=== PATIENT | female | born 1950 | race Caucasian/White ===

== ENCOUNTER → 2017-06-11 08:13 | Outpatient (CLI) | payer MEDICARE, BC, SELFPAY ==
[2017-06-11 10:10] LABS: AST(SGOT) 43 U/L (15-37); Alanine Aminotransfer ALT/SGPT 53 U/L (13-56); Albumin, Serum 3.8 g/dL (3.2-5.0); Alkaline Phosphatase 60 U/L (45-117); Anion Gap 9 (5-15); BUN 19 mg/dL (7-18); BUN/Creat Ratio 28.3 RATIO (10-20); Calcium,Total 9.3 mg/dL (8.5-10.1); Chloride 104 mmol/L (98-107); Cholesterol 249 mg/dL (200); Creatinine, Serum 0.67 mg/dL (0.55-1.02); EST Glomerular Filtration Rate 93 mL/min (>60); Est Glom Filt Rate - Afr Amer 112 mL/min (>60); Globulin 3.9 g/dL (2.2-4.2); Glucose 113 mg/dL (74-106); High Density Lipoprotein 59 mg/dL; Potassium 3.9 mmol/L (3.5-5.1); Protein, Total 7.7 g/dL (6.4-8.2); Sodium Level 141 mmol/L (136-145); Triglycerides 304 mg/dL; Very Low Density Lipoprotein 61 mg/dL (5-40)
== END ==
PROVIDERS: Family Provider Family Medicine; PCP Family Medicine; Visit Provider Family Medicine
DX: E78.00 Pure hypercholesterolemia, unspecified (principal); I10 Essential (primary) hypertension; R73.02 Impaired glucose tolerance (oral)
CPT/HCPCS: 36415; 80053; 80061; 83036

== ENCOUNTER → 2018-02-05 10:08 | Outpatient (CLI) | payer MEDICARE, BC, SELFPAY ==
[2018-02-05 12:02] LABS: Color, Urine Yellow (Yellow); Glucose, Dipstick Normal (Normal); Ketone-Dipstick Negative (Negative); Leukocyte Esterase-Dipstick 100 /ul (Negative); Nitrite-Dipstick Negative (Negative); Occult Blood-Urine Negative /ul (Negative); Protein-Dipstick Negative (Negative); Urine Bilirubin Dipstick Negative (Negative); Urine Clarity Sl. Cloudy (Clear); Urine Urobilinogen Normal (Normal); Urine pH 6.5 (5.0 - 8.0)
[2018-02-05 12:17] LABS: ALB/GLOB Ratio 0.9 RATIO (0.9-2.4); AST(SGOT) 30 U/L (15-37); Alanine Aminotransfer ALT/SGPT 51 U/L (13-56); Albumin, Serum 3.6 g/dL (3.2-5.0); Alkaline Phosphatase 64 U/L (45-117); Anion Gap 7 (5-15); BUN 15 mg/dL (7-18); BUN/Creat Ratio 26.8 RATIO (10-20); Chloride 106 mmol/L (98-107); Cholesterol 233 mg/dL (200); Creatinine, Serum 0.56 mg/dL (0.55-1.02); EST Glomerular Filtration Rate 114 mL/min (>60); Est Glom Filt Rate - Afr Amer 138 mL/min (>60); Globulin 3.9 g/dL (2.2-4.2); Glucose 128 mg/dL (74-106); High Density Lipoprotein 63 mg/dL; Potassium 3.9 mmol/L (3.5-5.1); Protein, Total 7.5 g/dL (6.4-8.2); Sodium Level 139 mmol/L (136-145); Triglycerides 199 mg/dL; Very Low Density Lipoprotein 40 mg/dL (5-40)
[2018-02-05 12:24] LABS: Hemoglobin A1c 6.4 % (4.2-6.3)
[2018-02-05 12:34] LABS: Absolute Lymphocyte Count 1.12 X10^3/ul (0.83-4.51); Absolute Neutrophil Count 3.7 X10^3/uL (2.0-7.7); Basophil# 0.03 X10^3/uL; Basophil% 0.5 % (0-1); Eosinophil# 0.17 X10^3/uL; Hematocrit 39.9 % (37-47); Hemoglobin 13.2 g/dl (12.0-15.0); Lymphocyte # 1.12 X10^3/ul (4.0); Lymphocyte % 19.9 % (19-41); Mean Corp Hgb Conc 33.1 g/gl (32-36); Mean Corpuscular Hgb 31.8 pg (27.0-32.0); Mean Corpuscular Volume 96.1 fL (81-99); Mean Platelet Vol. 10.4 fl (6.2-12.0); Monocyte# 0.58 X10^3/uL; Monocyte% 10.3 % (0-10); Neutrophil # 3.73 X10^3/uL (2.7-7.7); Neutrophil % 66.1 % (47-70); Platelet Count 222 K/mm3 (150-450); RBC Distribution Width CV 13.9 % (11.6-14.6); RBC Distribution Width SD 47.2 fl (35.1-43.9); Red Blood Count 4.15 M/mm3 (4.2-5.4); White Blood Count 5.6 K/mm3 (4.4-11.0)
[2018-02-05 12:46] LABS: POSITIVE COUNT NO; POSITIVE DIFFERENTIAL NO; POSITIVE MORPHOLOGY NO
--- OUTSIDE RECORDS SUMMARY | 2018-03-24 04:35 | XMS RPT_ITS | Clinical Summary ---
:1950 Author Organization [facility] Address [address] [facility] [place] [address] Phone Care Team Providers Name Role Phone Velma Benoit LPN Unavailable Conditions or Problems Problem Name Problem Onset Status Entry Provider Comment Standard Annotate Code Date Date Description Rib pain, left 880080235 Active Qamar Carey Rib pain sided (SNOMED CT) / Abdulaziz BRYANT Bronchitis, 90869766 Active Williams D Acute acute, w or (SNOMED CT) / Gerson BRYANT bronchitis w/o bronchospasm Bronchitis 41446224 Active Sharmin Haddad Bronchitis (SNOMED CT) / Srinivas EVS TECH Medications Medication Instructions Start Stop Generic Name NDC Provider Date Date MEDROL 4 MG Take as METHYLPREDNISOLONE 24239573384 Williams D TBPK directed 07/21 Gerson DAVIS Take 1 capsule BENZONATATE 56615474554 Williams D 100 MG CAPS every 8 hours 07/26 Gerson BRYANT as needed LOSARTAN as directed LOSARTAN [id number] Sharmin Haddad POTASSIUM-HCTZ POTASSIUM-HCTZ TABS Srinivas TABS EVS TECH TOPROL XL as directed METOPROLOL SUCCINATE [id number] Sharmin N [id number] / [id number] Srinivas EVS TECH LIPITOR TABS as directed ATORVASTATIN CALCIUM 06458420332 Sharmin N / TABS Srinivas EVS TECH CALCIUM + D as directed CALCIUM 98286148528 Sharmin N TABS CITRATE-VITAMIN D Srinivas TABS EVS TECH DAILY as directed MULTIPLE 33047205138 Sharmin N MULTIVITAMIN / VITAMINS-MINERALS Srinivas CAPS EVS TECH [facility] FISH OIL as directed OMEGA-3 FATTY ACIDS 97041205548 Sharmin N CPDR /23 CPDR Srinivas SKELTONN ASPIR-81 TBEC as directed ASPIRIN TBEC 42537988665 Sharmin N / Srinivas DAMIAN Medications Administered No information available. Allergies, Adverse Reactions, Alerts Observed no known allergies at Results Date Name Value Unit Range Flag Description Office Visit: UC: Bronchitis SMOK STATUS Never smoker Tobacco use [facility] Office Visit: UC: L rib pain MEDS REVIEW Done Documentation of current medications (procedure) FALLRSKASSES No Fall risk assessment Plan of Care Type Date Detail Appointment 01:00 PM Qamar BRYANT, [address] [place] [address], [address], [place], [address], Pending order X-Ray, Chest, PA & Lateral Pending order X-Ray, Rib, Unilateral Patient education PANIC%20ATTACK Patient education ACUTE%20BRONCHITIS Procedures No information available. Vital Signs Date Name Value Unit Description BMI (Body Mass Index) 30.64 kg/m2 Body Mass Index [Ratio] Body Temperature 97.9 [degF] temperature E&M BP Diastolic 82 mm[Hg] blood pressure, diastolic - 8462-4 BP Systolic 126 mm[Hg] blood pressure, systolic - 8480-6 Heart Rate 80 /min pulse rate E&M - 8867-4 Height 63 [in_us] height E&M - 8302-2 Respiratory Rate 14 /min respiratory rate E&M - 9279-1 Weight Measured 173 [lb_av] weight E&M - 3141-9
--- OUTSIDE RECORDS SUMMARY | 2018-03-24 04:35 | XMS RPT_ITS | Clinical Summary ---
:1950 Author Organization [facility] Address [address] [facility] [place] [address] Phone Care Team Providers Name Role Phone Srinivas DAMIAN, Sharmin Haddad Unavailable Unavailable Conditions or Problems Problem Name Problem Onset Status Entry Provider Comment Standard Annotate Code Date Date Description Bronchitis, 14836360 Active Williams Ndiaye Acute acute, w or (SN Gerson BRYANT bronchitis w/o CT) bronchospasm Bronchitis 77284394 Active Sharmin Haddad Bronchitis (SN Srinivas CT) DRILL PRESS HAND Medications Medication Instructions Start Stop Generic Name NDC Provider Date Date MEDROL 4 MG Take as METHYLPREDNISOLONE [id number] Williams D TBPK directed /07/21 Gerson CAMARGO PERLES Take 1 capsule BENZONATATE 37496513887 Williams D 100 MG CAPS every 8 hours /07/26 Gerson BRYANT as needed LOSARTAN as directed LOSARTAN 89723569485 Sharmin Haddad POTASSIUM-HCTZ /23 POTASSIUM-HCTZ TABS Srinivas TABS DRILL PRESS HAND TOPROL XL as directed METOPROLOL SUCCINATE 07689502988 Sharmin Haddad [id number]-NQT /23 [id number]-VRQ Srinivas DRILL PRESS HAND LIPITOR TABS as directed ATORVASTATIN CALCIUM 78952920047 Sharmin N /23 TABS Srinivas DRILL PRESS HAND CALCIUM + D as directed CALCIUM 68744073492 Sharmin Haddad TABS /23 CITRATE-VITAMIN D Srinivas TABS DRILL PRESS HAND DAILY as directed MULTIPLE 29774116319 Sharmin Haddad MULTIVITAMIN /23 VITAMINS-MINERALS Srinivas CAPS DRILL PRESS HAND [facility] FISH OIL as directed OMEGA-3 FATTY ACIDS 86489127109 Sharmin Haddad CPDR /23 CPDR Srinivas DRILL PRESS HAND ASPIR-81 TBEC as directed ASPIRIN TBEC 48116155981 Sharmin Srinivas DAMIAN Medications Administered No information available. Allergies, Adverse Reactions, Alerts Observed no known allergies at Results Date Name Value Unit Range Flag Description Office Visit: UC: Bronchitis MEDS REVIEW Done Documentation of current medications (procedure) FALLRSKASSES No Fall risk assessment SMOK STATUS Never smoker Tobacco use [facility] Plan of Care Type Date Detail Patient education ACUTE%20BRONCHITIS Procedures No information available. Vital Signs Date Name Value Unit Description BMI (Body Mass Index) 30.50 kg/m2 Body Mass Index [Ratio] Body Temperature 98.4 [degF] temperature E&M BP Diastolic 82 mm[Hg] blood pressure, diastolic - 8462-4 BP Systolic 130 mm[Hg] blood pressure, systolic - 8480-6 Heart Rate 89 /min pulse rate E&M - 8867-4 Height 63 [in_us] height E&M - 8302-2 O2 % BldC Oximetry 98 % oxygen saturation, oximetry Respiratory Rate 16 /min respiratory rate E&M - 9279-1 Weight Measured 172.2 [lb_av] weight E&M - 3141-9
--- OUTSIDE RECORDS SUMMARY | 2018-03-24 04:35 | XMS RPT_ITS | Clinical Summary ---
:1950 Author Organization [facility] Address [address] [place] [address] Phone Care Team Providers Name Role Phone Srinivas DAMIAN, Sharmin Haddad Unavailable Unavailable Conditions or Problems Problem Name Problem Onset Status Entry Provider Comment Standard Annotate Code Date Date Description Bronchitis, 78682695 Active Williams Ndiaye Acute acute, w or (SN Gerson BRYANT bronchitis w/o CT) bronchospasm Bronchitis 83468214 Active Sharmin Haddad Bronchitis (SN Srinivas CT) BOAT OUTBOARD ENGINE MECHANIC Medications Medication Instructions Start Stop Generic Name NDC Provider Date Date MEDROL 4 MG Take as METHYLPREDNISOLONE [id number] Williams D TBPK directed /07/21 Gerson CAMARGO PERLES Take 1 capsule BENZONATATE 89041373655 Williams D 100 MG CAPS every 8 hours /07/26 Gerson BRYANT as needed LOSARTAN as directed LOSARTAN 66953695323 Sharmin Haddad POTASSIUM-HCTZ /23 POTASSIUM-HCTZ TABS Srinivas TABS BOAT OUTBOARD ENGINE MECHANIC TOPROL XL as directed METOPROLOL SUCCINATE 15401519035 Sharmin Haddad [id number]-EYT /23 [id number]-LRL Srinivas BOAT OUTBOARD ENGINE MECHANIC LIPITOR TABS as directed ATORVASTATIN CALCIUM 44714900162 Sharmin N /23 TABS Srinivas BOAT OUTBOARD ENGINE MECHANIC CALCIUM + D as directed CALCIUM 69526691221 Sharmin Hadadd TABS /23 CITRATE-VITAMIN D Srinivas TABS BOAT OUTBOARD ENGINE MECHANIC DAILY as directed MULTIPLE 11053734851 Sharmin Haddad MULTIVITAMIN /23 VITAMINS-MINERALS Srinivas CAPS BOAT OUTBOARD ENGINE MECHANIC CVS FISH OIL as directed OMEGA-3 FATTY ACIDS 29210471522 Sharmin Haddad CPDR /23 CPDR Srinivas BOAT OUTBOARD ENGINE MECHANIC ASPIR-81 TBEC as directed ASPIRIN TBEC 52949035675 Sharmin Srinivas DAMIAN Medications Administered No information available. Allergies, Adverse Reactions, Alerts Observed no known allergies at Results Date Name Value Unit Range Flag Description Office Visit: UC: Bronchitis MEDS REVIEW Done Documentation of current medications (procedure) FALLRSKASSES No Fall risk assessment SMOK STATUS Never smoker Tobacco use [facility] Plan of Care Type Date Detail Appointment 11:00 AM Williams BRYANT, [address] [place] [address], [address], [place], [address], Patient education ACUTE%20BRONCHITIS Procedures No information available. [...]
--- OUTSIDE RECORDS SUMMARY | 2018-03-24 04:35 | XMS RPT_ITS | Clinical Summary ---
:1950 Author Organization [facility] Address [address] [facility] [place] [address] Phone Care Team Providers Name Role Phone Srinivas CYCLING INSTRUCTOR, Sharmin N Unavailable Unavailable Conditions or Problems Problem Name Problem Onset Status Entry Provider Comment Standard Annotate Code Date Date Description Rib pain, left 472277215 Active Qamar Carey Rib pain sided (SNOMED CT) / Abdulaziz BRYANT Bronchitis, 61906335 Active Williams D Acute acute, w or (SNOMED CT) / Gerson BRYANT bronchitis w/o bronchospasm Bronchitis 55790604 Active Sharmin Haddad Bronchitis (SNOMED CT) / Srinivas CYCLING INSTRUCTOR Medications Medication Instructions Start Stop Generic Name NDC Provider Date Date MEDROL 4 MG Take as METHYLPREDNISOLONE 03932171717 Williams D TBPK directed 07/21 Gerson DAVIS Take 1 capsule BENZONATATE 32549730803 Williams D 100 MG CAPS every 8 hours /07/26 Gerson BRYANT as needed LOSARTAN as directed LOSARTAN 57324167035 Sharmin N POTASSIUM-HCTZ / POTASSIUM-HCTZ TABS Srinivas TABS CYCLING INSTRUCTOR TOPROL XL as directed METOPROLOL SUCCINATE 20022432412 Sharmin N [id number] /23 [id number] Srinivas CYCLING INSTRUCTOR LIPITOR TABS as directed ATORVASTATIN CALCIUM 73458256765 Sharmin N /23 TABS Srinivas CYCLING INSTRUCTOR CALCIUM + D as directed CALCIUM 52269406722 Sharmin N TABS CITRATE-VITAMIN D Srinivas TABS CYCLING INSTRUCTOR DAILY as directed MULTIPLE 17178840258 Sharmin N MULTIVITAMIN / VITAMINS-MINERALS Srinivas CAPS CYCLING INSTRUCTOR CVS FISH OIL as directed OMEGA-3 FATTY ACIDS 12778060178 Sharmin Catie CPDR / CPDR Srinivas DAMIAN ASPIR-81 TBEC as directed ASPIRIN TBEC 42769006513 Sharmin N / Srinivas DAMIAN Medications Administered No information available. Allergies, Adverse Reactions, Alerts Observed no known allergies at Results Date Name Value Unit Range Flag Description Office Visit: UC: Bronchitis SMOK STATUS Never smoker Tobacco use [facility] Office Visit: UC: L rib pain MEDS REVIEW Done Documentation of current medications (procedure) FALLRSKASSES No Fall risk assessment Plan of Care Type Date Detail Pending order X-Ray, Chest, PA & Lateral [...]
--- OUTSIDE RECORDS SUMMARY | 2018-03-24 04:36 | XMS RPT_ITS ---
:1950 Author Organization [facility] Care Team Providers Name Role Phone Ganesh Zurita Attending Unavailable Ganesh Zurita Referring Unavailable Ganesh Zurita Primary Care Unavailable Ganesh Zurita Attending Unavailable Ganesh Zurita Primary Care Unavailable PROBLEMS PROBLEMS DATE TYPE CONDITION / CODE ATTENDING STATUS SOURCE 06/11/2017 Unknown E78.00 - Pure Ganesh Zurita Active Rob hypercholesterolem Community [facility], unspecified / Hospital E78.00(ICD-10) Repository 06/11/2017 Unknown I10 - Essential Ganesh Zurita (primary) [facility] hypertension / Hospital I10(ICD-10) Repository 06/11/2017 Unknown R73.02 - Impaired Ganesh Zurita Active Rob glucose tolerance Community (oral) / Hospital R73.02(ICD-10) Repository PROCEDURES PROCEDURES No Procedure Records FoundRESULTS RESULTS URINALYSIS, ROUTINE Collected: 02/05/2018 Status: F Source: ROB (DIPSTICK) 10:20 AM [facility] REPOSITORY Order Comment: How was Urine Obtained? CLEAN CATCH TYPE CODE TESTS RESULT OUT OF RANGE REFERENCE UNITS LAB L400.3000 Yellow COLOR Normal Yellow LAB L400.3050 Clear Normal CLARITY Sl. Cloudy LAB L400.3200 Normal mg/dl Normal GLUCOSE, UR Normal LAB L400.3300 Negative mg/dL Normal BILIRUBIN URINE Negative LAB L400.3400 Negative mg/dl Normal KETONE UR Negative LAB L400.3465 1.002-1.030 Normal SP.GR. DIPSTX 1.010 LAB L400.3550 5.0 - 8.0 pH UR Normal 6.5 LAB L400.3600 Negative mg/dl PROT Normal DIPSTX Negative LAB L400.3700 Normal mg/dl Normal UROBILI Normal LAB L400.3750 Negative Normal NITRITE UR Negative LAB L400.3780 Negative /ul Normal OCCULT BLOOD-UR Negative LAB L400.3800 Negative /ul High LEUK ESTERASE 100 Performed By: #### L400.2010 #### [facility] [address] [place], [place], [address] COMPREHENSIVE METABOLIC Collected: 02/05/2018 Status: F Source: [facility] 10:20 AM [facility] REPOSITORY TYPE CODE TESTS RESULT OUT OF RANGE REFERENCE UNITS LAB L501.0100 74-106 mg/dL High GLU 128 Result Comment: Fasting Glucose result greater than or equal to 126 mg/dL suggests DIABETES MELLITUS per A.D.A. criteria. Please note revised GLUCOSE reference range effective 2017. LAB L501.1000 7-18 mg/dL Normal BUN 15 LAB L501.1100 0.55-1.02 mg/dL Normal CREAT,SERUM 0.56 Result Comment: The validity of the calculated GFR AND GFRAA in patients over 70 years has not been determined. Clinical correlation is essential. LAB L501.1110 >60 mL/min Normal EST GFR 114 Result Comment: Non- GFR Calc LAB L501.1115 >60 mL/min Normal EST GFR - AA 138 Result Comment: GFR Calc LAB L501.1300 10-20 RATIO High BUN/CRE 26.8 LAB L501.1500 6.4-8.2 g/dL T Normal PROT 7.5 LAB L501.1800 3.2-5.0 g/dL Normal ALB 3.6 LAB L501.1950 2.2-4.2 g/dL Normal GLOB 3.9 LAB L501.2000 0.9-2.4 RATIO Normal A/G 0.9 LAB L501.2200 8.5-10.1 mg/dL CA Normal 9.0 LAB L501.4100 15-37 U/L Normal AST 30 LAB L501.4305 45-117 U/L Normal ALK P 64 LAB L501.4405 13-56 U/L Normal ALT 51 LAB L501.4600 0.20-1.00 mg/dL T Normal BILI 0.50 LAB L501.5300 136-145 mmol/L NA Normal 139 LAB L501.5600 3.5-5.1 mmol/L K Normal 3.9 LAB L501.5900 98-107 mmol/L CL Normal 106 LAB L501.6100 21.0-32.0 mmol/L Normal CO2 26.0 LAB L501.6200 5-15 Normal GAP 7 Performed By: #### L500.4050, L500.4100 #### [facility] [address] [place], [place], [address] LIPID PROFILE Collected: 02/05/2018 Status: F Source: [place] 10:20 AM [facility] REPOSITORY TYPE CODE TESTS RESULT OUT OF RANGE REFERENCE UNITS LAB L501.4900 200 mg/dL High CHOL 233 Result Comment: <200 mg/dL Desirable 200-240 mg/dL Borderline >240 mg/dL High Risk LAB L501.5000 mg/dL Normal TRIG 199 Result Comment: The drugs N-Acetylcysteine and Metamizole may falsely depress this assay. Serum Triglycerides Reference Interval Normal <150 mg/dL Borderline high 150 - 199 mg/dL High 200 - 499 mg/dL Very High > or = 500 mg/dL LAB L501.6400 mg/dL Normal HDL 63 Result Comment: The drugs N-Acetylcysteine and Metamizole may falsely depress this assay. Reference Range HDL <40 mg/dL Low HDL Cholesterol HDL >or= 60 mg/dL High HDL Cholesterol LAB L501.6500 0-130 mg/dL Normal LDL 130 LAB L501.6600 5-40 mg/dL Normal VLDL 40 Performed By: #### L500.4050, L500.4100 #### [facility] [address] [place], [place], [address] HEMOGLOBIN A1C Collected: 02/05/2018 Status: F Source: [place] 10:20 AM [facility] REPOSITORY TYPE CODE TESTS RESULT OUT OF RANGE REFERENCE UNITS LAB L501.9985 4.2-6.3 % High HGB A1C 6.4 Performed By: #### L501.9985 #### [facility] [address] [place], [place], [address] CBC W/DIFF, AUTOMATED Collected: 02/05/2018 Status: F Source: [place] 10:20 AM [facility] REPOSITORY TYPE CODE TESTS RESULT OUT OF RANGE REFERENCE UNITS LAB L100.1000 4.4-11.0 K/mm3 Normal WBC 5.6 LAB L100.1200 4.2-5.4 M/mm3 Low RBC 4.15 LAB L100.1300 12.0-15.0 g/dl Normal HGB 13.2 LAB L100.1400 37-47 % Normal HCT 39.9 LAB L100.1500 81-99 fL Normal MCV 96.1 LAB L100.1600 27.0-32.0 pg Normal MCH 31.8 LAB L100.1700 32-36 g/gl Normal MCHC 33.1 LAB L100.1810 11.6-14.6 % Normal RDW CV 13.9 LAB L100.1820 35.1-43.9 fl High RDW SD 47.2 LAB L100.1900 150-450 K/mm3 Normal PLT 222 LAB L100.2000 6.2-12.0 fl Normal MPV 10.4 LAB L100.2100 47-70 % Normal NEUT% 66.1 LAB L100.2200 19-41 % Normal LY% 19.9 LAB L100.2300 0-10 % High MONO% 10.3 LAB L100.2400 0-5 % Normal EO% 3.0 LAB L100.2500 0-1 % Normal BASO% 0.5 LAB L100.2550 0.0-0.9 % Normal IM GRAN % 0.200 Result Comment: IG% - Immature Granulocytes (promyelocytes, myelocytes and metamyelocytes) > 1% indicates that a LEFT SHIFT is Present. LAB L100.2620 2.0-7.7 X10 3/uL Normal Absolute Neut 3.7 LAB L100.2720 0.83-4.51 X10 3/ul Normal Absolute Lymph 1.12 Performed By: #### L100.0100 #### [facility] [address] [place], [address] COMPREHENSIVE METABOLIC Collected: 06/11/2017 Status: F Source: ROB [place]AMAN 8:22 AM [facility] REPOSITORY TYPE CODE TESTS RESULT OUT OF RANGE REFERENCE UNITS LAB L501.0100 74-106 mg/dL High GLU 113 Result Comment: Fasting Glucose result from 100 to 125 mg/dL suggests IMPAIRED HOMEOSTASIS per A.D.A. criteria. Please note revised GLUCOSE reference range effective 2017. LAB L501.1000 7-18 mg/dL High BUN 19 LAB L501.1100 0.55-1.02 mg/dL Normal CREAT,SERUM 0.67 Result Comment: The validity of the calculated GFR AND GFRAA in patients over 70 years has not been determined. Clinical correlation is essential. LAB L501.1110 >60 mL/min Normal EST GFR 93 Result Comment: Non- GFR Calc LAB L501.1115 >60 mL/min Normal EST GFR - AA 112 Result Comment: GFR Calc LAB L501.1300 10-20 RATIO High BUN/CRE 28.3 LAB L501.1500 6.4-8.2 g/dL T Normal PROT 7.7 LAB L501.1800 3.2-5.0 g/dL Normal ALB 3.8 LAB L501.1950 2.2-4.2 g/dL Normal GLOB 3.9 LAB L501.2000 0.9-2.4 RATIO Normal A/G 1.0 LAB L501.2200 8.5-10.1 mg/dL CA Normal 9.3 LAB L501.4100 15-37 U/L High AST 43 LAB L501.4305 45-117 U/L Normal ALK P 60 LAB L501.4405 13-56 U/L Normal ALT 53 LAB L501.4600 0.20-1.00 mg/dL T Normal BILI 0.60 LAB L501.5300 136-145 mmol/L NA Normal 141 LAB L501.5600 3.5-5.1 mmol/L K Normal 3.9 LAB L501.5900 98-107 mmol/L CL Normal 104 LAB L501.6100 21.0-32.0 mmol/L Normal CO2 28.0 LAB L501.6200 5-15 Normal GAP 9 Performed By: #### L500.4050, L500.4100 #### [facility] [address] [place], [address] LIPID PROFILE Collected: 06/11/2017 Status: F Source: [place] 8:22 AM [facility] REPOSITORY TYPE CODE TESTS RESULT OUT OF RANGE REFERENCE UNITS LAB L501.4900 200 mg/dL High CHOL 249 Result Comment: <200 mg/dL Desirable 200-240 mg/dL Borderline >240 mg/dL High Risk LAB L501.5000 mg/dL High TRIG 304 Result Comment: The drugs N-Acetylcysteine and Metamizole may falsely depress this assay. Serum Triglycerides Reference Interval Normal <150 mg/dL Borderline high 150 - 199 mg/dL High 200 - 499 mg/dL Very High > or = 500 mg/dL LAB L501.6400 mg/dL Normal HDL 59 Result Comment: The drugs N-Acetylcysteine and Metamizole may falsely depress this assay. Reference Range HDL <40 mg/dL Low HDL Cholesterol HDL >or= 60 mg/dL High HDL Cholesterol LAB L501.6500 0-130 mg/dL Normal LDL 129 LAB L501.6600 5-40 mg/dL High VLDL 61 Performed By: #### L500.4050, L500.4100 #### [facility] [address] [place], [address] HEMOGLOBIN A1C Collected: 06/11/2017 Status: F Source: [place] 8:22 AM [facility] REPOSITORY TYPE CODE TESTS RESULT OUT OF RANGE REFERENCE UNITS LAB L501.9985 4.2-6.3 % Normal HGB A1C 6.0 Performed By: #### L501.9985 #### [facility] [address] [place], [address] ALLERGIES ALLERGIES No Allergies Records FoundENCOUNTERS ENCOUNTERS ADMIT/DISCHARGE ACCOUNT ADMITTING ENCOUNTER LOCATION SOURCE NUMBER CLASS 02/05/2018 [id number] Ambulatory [facility] 8 [facility] ing:MTLAB Repository 06/11/2017 [id number] Ambulatory [facility] 3 [facility] ing:MTLAB Repository PAYERS PAYERS ENCOUNTER GUARANTOR PAYER SUBSCRIBER SOURCE 02/05/2018 MARGARET BRASWELL Primary MARGARET BRASWELL [place] [id number] Insurance:MEDICARE OLSONDOB: Community [place] PART A [facility] [id number] Number: Repository [id number]: [phone] [id number] [phone] () Date:2018-02-05 02/05/2018 Secondary MARGARET I YOLANDA Rob Insurance:ANTHEMPolic OLSONDOB: Community y Number: [id number] [id number] Repository Date:[id number] [address] [place] [address]VU: 02/05/2018 Tertiary NOT GIVENUNK [place] Insurance:SELF PAY [facility] Number: Effective Repository Date:2018-02-05 06/11/2017 Margaretleonor Braswell Primary Margaret Sonbrock [place] [id number] Insurance:MEDICARE [place] IDOB: Community [place] PART A [facility] [id number] Repository [id number]: [phone] [id number] [phone] () Date:2017-06-11 06/11/2017 Secondary Margaret Braswell [place] Insurance:ANTHEMPolic [place] IDOB: Community y Number: [id number] [id number] Repository Date:[id number] [address] [place] [id number]: 06/11/2017 Tertiary NOT GIVENUNK [place] Insurance:SELF PAY [facility] Number: Effective Repository Date:2017-06-11
== END ==
PROVIDERS: Family Provider Family Medicine; PCP Family Medicine; Referring Provider Family Medicine; Visit Provider Family Medicine
DX: Z00.00 Encounter for general adult medical examination without abnormal findings (principal); R73.02 Impaired glucose tolerance (oral); E78.00 Pure hypercholesterolemia, unspecified; I10 Essential (primary) hypertension
CPT/HCPCS: 36415; 80053; 80061; 81002; 83036; 85025

== ENCOUNTER → 2018-03-30 10:52 | Outpatient (CLI) | payer MEDICARE, BC, SELFPAY ==
--- NOTE | 2018-03-30 10:56 | BI_ITS ---
MAMMOGRAPHY - BILATERAL SCREENING REASON FOR EXAM: Female, 68 years old. Routine annual screening examination. PERTINENT HISTORY: Non-contributory. TECHNIQUE: Digital bilateral breast hari (3D mammographic acquisition) in the CC and MLO projections. 2-D mediolateral oblique (MLO) and craniocaudad (CC) views of both breasts were obtained. CAD: Full Field Digital Mammography with Computer Added Detection was performed. COMPARISON: Comparison is made with prior study dated September 02, 2016 and August 31, 2015. FINDINGS: Breast Composition: There are scattered areas of fibroglandular density. There are no dominant masses or suspicious calcifications. Stable small benign-appearing bilateral axillary lymph nodes. No other significant abnormalities are identified. There has been no significant change since the prior study. BI/SCREENING MAMM (CAD), BILAT IMPRESSION: Stable bilateral screening mammogram. Yearly follow-up mammogram recommended. (A) ASSESSMENT CATEGORY: BIRADS Category 2: Benign. A letter regarding these results will be sent to the patient by the facility within 30 days. Approximately 10% of breast cancers are not detected by mammography. A normal mammogram should not delay biopsy of a clinically suspicious abnormality. [id number] Electronically Signed: Tripp Turpin MD at 12:47 EST , Service support ,
== END ==
PROVIDERS: Family Provider Family Medicine; PCP Family Medicine; Referring Provider Family Medicine; Visit Provider Family Medicine
DX: Z12.31 Encounter for screening mammogram for malignant neoplasm of breast (principal)
CPT/HCPCS: 77063; 77067

== ENCOUNTER → 2018-07-29 | Outpatient (CLI) | payer MEDICARE, BC, SELFPAY ==
[2018-07-29 10:44] LABS: Hemoglobin A1c 5.7 % (4.2-6.3)
[2018-07-29 10:50] LABS: AST(SGOT) 18 U/L (15-37); Alanine Aminotransfer ALT/SGPT 31 U/L (13-56); Albumin, Serum 3.5 g/dL (3.2-5.0); Alkaline Phosphatase 57 U/L (45-117); Cholesterol 325 mg/dL (200); High Density Lipoprotein 51 mg/dL; Protein, Total 7.5 g/dL (6.4-8.2); Triglycerides 210 mg/dL; Very Low Density Lipoprotein 42 mg/dL (5-40)
== END | disposition home or self-care (01) ==
LOC: MTLAB 08:53
PROVIDERS: Family Provider Family Medicine; PCP Family Medicine; Referring Provider Family Medicine; Visit Provider Family Medicine
DX: R73.02 Impaired glucose tolerance (oral) (principal); E78.5 Hyperlipidemia, unspecified
CPT/HCPCS: 36415; 80061; 80076; 83036

== ENCOUNTER → 2018-09-30 | Outpatient (CLI) | payer MEDICARE, BC, SELFPAY ==
[2018-09-30 10:43] LABS: AST(SGOT) 14 U/L (15-37); Alanine Aminotransfer ALT/SGPT 28 U/L (13-56); Albumin, Serum 3.6 g/dL (3.2-5.0); Alkaline Phosphatase 48 U/L (45-117); Cholesterol 230 mg/dL (200); Globulin 3.5 g/dL (2.2-4.2); High Density Lipoprotein 69 mg/dL; Protein, Total 7.1 g/dL (6.4-8.2); Triglycerides 159 mg/dL; Very Low Density Lipoprotein 32 mg/dL (5-40)
== END | disposition home or self-care (01) ==
LOC: MTLAB 07:41
PROVIDERS: Family Provider Family Medicine; PCP Family Medicine; Referring Provider Family Medicine; Visit Provider Family Medicine
DX: E78.5 Hyperlipidemia, unspecified (principal)
CPT/HCPCS: 36415; 80061; 80076

== ENCOUNTER → 2019-01-29 09:25 | Outpatient (CLI) | payer MEDICARE, BC, SELFPAY ==
[2019-01-23 08:44] VITALS: BMI 24.7
[2019-01-29 10:22] LABS: Color, Urine Yellow (Yellow); Glucose, Dipstick Normal (Normal); Ketone-Dipstick Negative (Negative); Leukocyte Esterase-Dipstick 25 /ul (Negative); Nitrite-Dipstick Negative (Negative); Occult Blood-Urine Negative /ul (Negative); Protein-Dipstick Negative (Negative); Specific Gravity, Urine 1.025 (1.002-1.030); Urine Bilirubin Dipstick Negative (Negative); Urine Clarity Clear (Clear); Urine Urobilinogen Normal (Normal)
[2019-01-29 10:23] LABS: Absolute Lymphocyte Count 1.26 X10^3/uL (0.83-4.51); Absolute Neutrophil Count 3.4 X10^3/uL (2.0-7.7); Basophil# 0.04 X10^3/uL; Basophil% 0.7 % (0-1); Eosinophil# 0.16 X10^3/uL; Eosinophils% 2.9 % (0-5); Hematocrit 43.1 % (37-47); Hemoglobin 13.9 g/dL (12.0-15.0); Lymphocyte # 1.26 X10^3/ul (4.0); Lymphocyte % 23.1 % (19-41); Mean Corp Hgb Conc 32.3 g/dL (32-36); Mean Corpuscular Hgb 31.6 pg (27.0-32.0); Mean Platelet Vol. 9.7 fl (6.2-12.0); Monocyte# 0.62 X10^3/uL; Monocyte% 11.4 % (0-10); NRBC Flagged by Analyzer 0 % (0-5); Neutrophil # 3.36 X10^3/uL (2.7-7.7); Neutrophil % 61.7 % (47-70); Platelet Count 200 K/mm3 (150-450); RBC Distribution Width CV 13.2 % (11.6-14.6); RBC Distribution Width SD 47.4 fl (35.1-43.9); White Blood Count 5.5 K/mm3 (4.4-11.0)
[2019-01-29 10:38] LABS: ALB/GLOB Ratio 1.1 RATIO (0.9-2.4); AST(SGOT) 23 U/L (15-37); Alanine Aminotransfer ALT/SGPT 40 U/L (13-56); Albumin, Serum 3.9 g/dL (3.2-5.0); Alkaline Phosphatase 49 U/L (45-117); Anion Gap 8 (5-15); BUN 25 mg/dL (7-18); BUN/Creat Ratio 34.2 RATIO (10-20); Calcium,Total 9.7 mg/dL (8.5-10.1); Chloride 107 mmol/L (98-107); Cholesterol 227 mg/dL (200); Creatinine, Serum 0.73 mg/dL (0.55-1.02); EST Glomerular Filtration Rate 84 mL/min (>60); Est Glom Filt Rate - Afr Amer 101 mL/min (>60); Globulin 3.5 g/dL (2.2-4.2); Glucose 130 mg/dL (74-106); High Density Lipoprotein 78 mg/dL; Potassium 4.3 mmol/L (3.5-5.1); Protein, Total 7.4 g/dL (6.4-8.2); Sodium Level 142 mmol/L (136-145); Triglycerides 123 mg/dL; Very Low Density Lipoprotein 25 mg/dL (5-40)
[2019-01-29 10:40] LABS: Hemoglobin A1c 5.7 % (4.2-6.3)
== END ==
PROVIDERS: Family Provider Family Medicine; PCP Family Medicine; Referring Provider Family Medicine; Visit Provider Family Medicine
DX: Z00.00 Encounter for general adult medical examination without abnormal findings (principal); E78.5 Hyperlipidemia, unspecified; R73.02 Impaired glucose tolerance (oral); I10 Essential (primary) hypertension
CPT/HCPCS: 36415; 80053; 80061; 81002; 83036; 85025

== ENCOUNTER 2019-02-17 15:37 | Emergency (ER) | payer MEDICARE, BC, SELFPAY ==
[2019-01-23 08:44] VITALS: BMI 24.7
[2019-02-17 15:38] VITALS: BP 140/78; PULSE 81; RESP 16; TEMP 36.7; O2SAT 98; BMI 24.0
--- NOTE | 2019-02-17 16:10 | ED.DCSUM_ITS ---
- ER Visit Summary Date of Service: 02/17/19 Chief Complaint: Visual change right eye History of Present Illness: The patient is a 68 F who presents with flashes and floaters in her right eye that began last night. Patient states she started seeing some flashes last night. Patient states today she noticed a black spot in her right vision. Patient states that she has had a similar floater in her left eye in the past. Patient states she called her payroll assistant who referred her to the emergency department. Patient denies any headaches. Patient denies any nausea or vomiting. Patient denies any other visual changes. Patient denies any trauma or injury. Physical Examination: Vital signs are stable. Patient is afebrile. Patient is in no acute distress. Pupils are equal, round, and reactive to light bilaterally. Extraocular muscles are intact. Conjunctiva is clear. There are no foreign bodies noted. There is no lid edema noted. Anterior chamber was clear. There is no hyphema. Funduscopic examination was benign bilaterally. Cranial nerves II through XII are intact. There are no focal motor or sensory deficits noted. Test Results: Wyekd-ia-caxb ultrasound was performed by myself. I did not see any retinal detachments or lens dislocation. Emergency Department Course and Treatment: Case was discussed with Dr. Seamus Franklin, patient's payroll assistant. He will follow-up with the patient tomorrow morning. Patient was instructed to follow-up tomorrow morning. Patient understood and was agreeable with the plan. All questions were answered. Disposition: Discharge home Impression: 1. Floater right eye This note was generated with [employer] dictation software. It may contain incorrect words, spelling, and punctuation that were not noted in review of the chart prior to signing ED Disposition - Plan for ED Patient: Disposition: Home or Assisted Living Diagnosis: Floaters in visual field Instructions: Treating Flashes and Floaters Referrals: Ganesh Zurita MD [Primary Care Provider] - Additional Instructions: Follow-up with your payroll assistant tomorrow. He will see you first thing tomorrow morning.
[2019-02-17 16:48] VITALS: BP 132/70; PULSE 80; RESP 14; O2SAT 98
== END 2019-02-17 16:49 | disposition home or self-care (01) ==
PROVIDERS: Emergency Provider Emergency Medicine; Family Provider Family Medicine; PCP Family Medicine
DX: H43.391 Other vitreous opacities, right eye (principal); I10 Essential (primary) hypertension; E78.00 Pure hypercholesterolemia, unspecified; Z79.899 Other long term (current) drug therapy
CPT/HCPCS: 99283

== ENCOUNTER → 2019-04-05 09:49 | Outpatient (CLI) | payer MEDICARE, BC, SELFPAY ==
--- NOTE | 2019-04-05 09:52 | BI_ITS ---
MAMMOGRAPHY - BILATERAL SCREENING REASON FOR EXAM: Female, 69 years old. Routine annual screening examination. PERTINENT HISTORY: Non-contributory. TECHNIQUE: Digital bilateral breast demario (3D mammographic acquisition) in the CC and MLO projections. 2-D mediolateral oblique (MLO) and craniocaudad (CC) views of both breasts were obtained. CAD: Full Field Digital Mammography with Computer Added Detection was performed. COMPARISON: Comparison is made with prior study dated March 30, 2018 and September 02, 2006. FINDINGS: Breast Composition: There are scattered areas of fibroglandular density. There are no dominant masses or suspicious calcifications. No other significant abnormalities are identified. There has been no significant change since the prior study. BI/SCREEN MAMM (CAD) W/DEMARIO BILAT IMPRESSION: Stable bilateral screening mammogram. Yearly follow-up mammogram recommended. (A) ASSESSMENT CATEGORY: BIRADS Category 1: Negative. A letter regarding these results will be sent to the patient by the facility within 30 days. Approximately 10% of breast cancers are not detected by mammography. A normal mammogram should not delay biopsy of a clinically suspicious abnormality. [id number] Electronically Signed: Tripp Turpin, at 10:49 EST , Service support ,
== END ==
PROVIDERS: Family Provider Family Medicine; PCP Family Medicine; Referring Provider Family Medicine; Visit Provider Family Medicine
DX: Z12.31 Encounter for screening mammogram for malignant neoplasm of breast (principal)
CPT/HCPCS: 77063; 77067

== ENCOUNTER → 2019-08-03 08:14 | Outpatient (CLI) | payer MEDICARE, BC, SELFPAY ==
[2019-08-03 10:31] LABS: Hemoglobin A1c 5.5 % (3.8-5.6)
[2019-08-03 10:41] LABS: AST(SGOT) 15 U/L (15-37); Alanine Aminotransfer ALT/SGPT 31 U/L (13-56); Albumin, Serum 3.7 g/dL (3.2-5.0); Alkaline Phosphatase 47 U/L (45-117); Bilirubin, Direct 0.17 mg/dL (0.00-0.30); Cholesterol 226 mg/dL (200); Globulin 3.6 g/dL (2.2-4.2); High Density Lipoprotein 72 mg/dL; Protein, Total 7.3 g/dL (6.4-8.2); Triglycerides 103 mg/dL; Very Low Density Lipoprotein 21 mg/dL (5-40)
== END ==
PROVIDERS: PCP Family Medicine; Referring Provider Family Medicine; Visit Provider Family Medicine
DX: E78.5 Hyperlipidemia, unspecified (principal); R73.02 Impaired glucose tolerance (oral)
CPT/HCPCS: 36415; 80061; 80076; 83036

== ENCOUNTER → 2019-08-12 10:55 | Outpatient (CLI) | payer MEDICARE, BC, SELFPAY ==
--- NOTE | 2019-08-12 11:00 | CDU_ITS ---
Reason For Study: near syncope Rt. Velocities/BP Lt. Velocities/BP Prox CCA 60.4/18.6 cm/sec. Prox CCA 74.9/16.3 cm/sec. Mid CCA 56.5/18.6 cm/sec. Mid CCA 57.9/14.4 cm/sec. Dist CCA 47.3/14.7 cm/sec. Dist CCA 55.0/10.7 cm/sec. Prox ICA 59.1/17.3 cm/sec. Prox ICA 58.8/14.4 cm/sec. Mid ICA 61.7/20.0 cm/sec. Mid ICA 48.4/18.2 cm/sec. Dist ICA 55.2/14.7 cm/sec. Dist ICA 75.8/30.5 cm/sec. Rt. ICA/CCA = 1.1. Lt. ICA/CCA = 1.3. Prox ECA 81.2/12.1 cm/sec. Prox ECA 56.0/4.1 cm/sec. Rt. Vert. 28.6/7.8 cm/sec. Lt. Vert. 36.2/13.5 cm/sec. Right Extracranial There is intimal thickening but no significant atherosclerotic plaque noted in the right common carotid artery. There is intimal thickening but no significant atherosclerotic plaque noted in the right internal carotid artery. There is intimal thickening but no significant atherosclerotic plaque noted in the right external carotid artery. Antegrade flow is noted in the right vertebral artery. Left Extracranial There is intimal thickening but no significant atherosclerotic plaque noted in the left common carotid artery. There is intimal thickening but no significant atherosclerotic plaque noted in the left internal carotid artery. There is intimal thickening but no significant atherosclerotic plaque noted in the left external carotid artery. Antegrade flow is noted in the left vertebral artery. Procedure Carotid Duplex [id number]. The exam was diagnostic. Exam performed in department. Interpretation Summary No significant atherosclerotic plaque or stenosis noted in the internal carotid arteries bilaterally. Flow within the vertebral arteries is antegrade bilaterally. Ordering Physician: Ganesh Zurita Performed By: Teto Flores RVT
== END ==
PROVIDERS: PCP Family Medicine; Referring Provider Family Medicine; Visit Provider Family Medicine
DX: R55 Syncope and collapse (principal)
CPT/HCPCS: 93880

== ENCOUNTER → 2020-02-23 11:09 | Outpatient (CLI) | payer MEDICARE, BC, SELFPAY ==
[2020-02-23 12:26] LABS: Absolute Neutrophil Count 3.8 X10^3/uL (2.0-7.7); Basophil# 0.03 X10^3/uL; Basophil% 0.5 % (0-1); Eosinophil# 0.13 X10^3/uL; Eosinophils% 2.2 % (0-5); Hematocrit 39.7 % (37-47); Hemoglobin 12.5 g/dL (12.0-15.0); Lymphocyte % 23.3 % (19-41); Mean Corp Hgb Conc 31.5 g/dL (32-36); Mean Corpuscular Volume 101.5 fL (81-99); Mean Platelet Vol. 10.3 fl (6.2-12.0); Monocyte# 0.58 X10^3/uL; Monocyte% 9.7 % (0-10); NRBC Flagged by Analyzer 0 % (0-5); Neutrophil # 3.84 X10^3/uL (2.7-7.7); Neutrophil % 63.8 % (47-70); Platelet Count 227 K/mm3 (150-450); RBC Distribution Width CV 13.2 % (11.6-14.6); RBC Distribution Width SD 49.2 fl (35.1-43.9); Red Blood Count 3.91 M/mm3 (4.2-5.4)
[2020-02-23 12:56] LABS: Hemoglobin A1c 5.6 % (3.8-5.6)
[2020-02-23 13:41] LABS: ALB/GLOB Ratio 1.1 RATIO (0.9-2.4); AST(SGOT) 28 U/L (15-37); Alanine Aminotransfer ALT/SGPT 54 U/L (13-56); Albumin, Serum 3.9 g/dL (3.2-5.0); Alkaline Phosphatase 54 U/L (45-117); Anion Gap 6 (5-15); BUN 17 mg/dL (7-18); BUN/Creat Ratio 25.8 RATIO (10-20); Calcium,Total 9.6 mg/dL (8.5-10.1); Chloride 106 mmol/L (98-107); Cholesterol 212 mg/dL (200); Creatinine, Serum 0.66 mg/dL (0.55-1.02); EST Glomerular Filtration Rate 94 mL/min (>60); Est Glom Filt Rate - Afr Amer 114 mL/min (>60); Globulin 3.5 g/dL (2.2-4.2); Glucose 111 mg/dL (74-106); High Density Lipoprotein 79 mg/dL; Protein, Total 7.4 g/dL (6.4-8.2); Sodium Level 139 mmol/L (136-145); Triglycerides 118 mg/dL; Very Low Density Lipoprotein 24 mg/dL (5-40)
== END ==
PROVIDERS: PCP Family Medicine; Referring Provider Family Medicine; Visit Provider Family Medicine
DX: Z12.31 Encounter for screening mammogram for malignant neoplasm of breast (principal); Z00.00 Encounter for general adult medical examination without abnormal findings; Z13.6 Encounter for screening for cardiovascular disorders; I10 Essential (primary) hypertension; E78.5 Hyperlipidemia, unspecified; R73.02 Impaired glucose tolerance (oral)
CPT/HCPCS: 36415; 80053; 80061; 83036; 85025

== ENCOUNTER → 2020-05-03 10:38 | Outpatient (CLI) | payer MEDICARE, BC, SELFPAY ==
--- NOTE | 2020-05-03 10:41 | BI_ITS ---
MAMMOGRAPHY - BILATERAL SCREENING REASON FOR EXAM: Female, 70 years old. Routine annual screening examination. PERTINENT HISTORY: Non-contributory. TECHNIQUE: Digital bilateral breast demario (3D mammographic acquisition) in the CC and MLO projections. 2-D mediolateral oblique (MLO) and craniocaudad (CC) views of both breasts were obtained. CAD: Full Field Digital Mammography with Computer Added Detection was performed. COMPARISON: 04/05/2019 and 03/30/2018 FINDINGS: Breast Composition: The breasts are almost entirely fatty. There are no dominant masses or suspicious calcifications. No other significant abnormalities are identified. BI/SCRN MAMM (CAD)W/DEMARIO BILAT IMPRESSION: Stable bilateral screening mammogram. Yearly follow-up mammogram recommended. (A) ASSESSMENT CATEGORY: BIRADS Category 2: Benign. A letter regarding these results will be sent to the patient by the facility within 30 days. Approximately 10% of breast cancers are not detected by mammography. A normal mammogram should not delay biopsy of a clinically suspicious abnormality. [id number] Electronically Signed: Moira Beaulieu MD at 16:48 EST Tel , Service support ,
== END ==
PROVIDERS: PCP Family Medicine; Referring Provider Family Medicine; Visit Provider Family Medicine
DX: Z12.31 Encounter for screening mammogram for malignant neoplasm of breast (principal)
CPT/HCPCS: 77063; 77067

== ENCOUNTER → 2020-08-16 11:34 | Outpatient (CLI) | payer MEDICARE, BC, SELFPAY ==
[2020-08-16 15:33] LABS: ALB/GLOB Ratio 1.3 RATIO (0.9-2.4); AST(SGOT) 18 U/L (15-37); Alanine Aminotransfer ALT/SGPT 31 U/L (13-56); Albumin, Serum 4.2 g/dL (3.2-5.0); Alkaline Phosphatase 58 U/L (45-117); Anion Gap 7 (5-15); BUN 13 mg/dL (7-18); BUN/Creat Ratio 17.4 RATIO (10-20); Calcium,Total 9.3 mg/dL (8.5-10.1); Chloride 104 mmol/L (98-107); Cholesterol 193 mg/dL (200); Creatinine, Serum 0.75 mg/dL (0.55-1.02); EST Glomerular Filtration Rate 81 mL/min (>60); Est Glom Filt Rate - Afr Amer 98 mL/min (>60); Globulin 3.2 g/dL (2.2-4.2); Glucose 105 mg/dL (74-106); High Density Lipoprotein 72 mg/dL; Potassium 4.1 mmol/L (3.5-5.1); Protein, Total 7.4 g/dL (6.4-8.2); Sodium Level 139 mmol/L (136-145); Triglycerides 107 mg/dL; Very Low Density Lipoprotein 21 mg/dL (5-40)
[2020-08-16 15:58] LABS: Hemoglobin A1c 5.4 % (3.8-5.6)
== END ==
PROVIDERS: PCP Family Medicine; Referring Provider Family Medicine; Visit Provider Family Medicine
DX: I10 Essential (primary) hypertension (principal); E78.5 Hyperlipidemia, unspecified; R73.02 Impaired glucose tolerance (oral); E55.9 Vitamin D deficiency, unspecified
CPT/HCPCS: 36415; 80053; 80061; 82306; 83036; 86769

== ENCOUNTER 2021-03-09 08:42 | Outpatient (CLI) | payer MEDICARE, BC, SELFPAY ==
[2021-03-09 10:06] LABS: Absolute Lymphocyte Count 1.03 X10^3/uL (0.83-4.51); Absolute Neutrophil Count 3.4 X10^3/uL (2.0-7.7); Basophil# 0.04 X10^3/uL; Basophil% 0.8 % (0-1); Eosinophil# 0.16 X10^3/uL; Eosinophils% 3.1 % (0-5); Hemoglobin 12.7 g/dL (12.0-15.0); Lymphocyte # 1.03 X10^3/ul (0.83-4.51); Lymphocyte % 20.1 % (19-41); Mean Corp Hgb Conc 32.6 g/dL (32-36); Mean Corpuscular Hgb 31.8 pg (27.0-32.0); Mean Corpuscular Volume 97.7 fL (81-99); Mean Platelet Vol. 9.8 fl (6.2-12.0); Monocyte# 0.51 X10^3/uL; Monocyte% 9.9 % (0-10); NRBC Flagged by Analyzer 0 % (0-5); Neutrophil # 3.37 X10^3/uL (2.7-7.7); Neutrophil % 65.7 % (47-70); Platelet Count 211 K/mm3 (150-450); RBC Distribution Width CV 12.8 % (11.6-14.6); RBC Distribution Width SD 45.4 fl (35.1-43.9); Red Blood Count 3.99 M/mm3 (4.2-5.4); White Blood Count 5.1 K/mm3 (4.4-11.0)
[2021-03-09 10:26] LABS: AST(SGOT) 20 U/L (15-37); Alanine Aminotransfer ALT/SGPT 38 U/L (13-56); Albumin, Serum 3.7 g/dL (3.2-5.0); Alkaline Phosphatase 56 U/L (45-117); Anion Gap 3 (5-15); BUN 15 mg/dL (7-18); BUN/Creat Ratio 19.6 RATIO (10-20); Calcium,Total 9.2 mg/dL (8.5-10.1); Chloride 108 mmol/L (98-107); Cholesterol 228 mg/dL (200); Creatinine, Serum 0.77 mg/dL (0.55-1.02); EST Glomerular Filtration Rate 79 mL/min (>60); Est Glom Filt Rate - Afr Amer 95 mL/min (>60); Globulin 3.6 g/dL (2.2-4.2); Glucose 119 mg/dL (74-106); Hemoglobin A1c 5.7 % (3.8-5.6); High Density Lipoprotein 74 mg/dL; Potassium 4.3 mmol/L (3.5-5.1); Protein, Total 7.3 g/dL (6.4-8.2); Sodium Level 140 mmol/L (136-145); Triglycerides 145 mg/dL; Very Low Density Lipoprotein 29 mg/dL (5-40)
[2021-03-09 10:30] LABS: Vitamin D,25 Hydroxy 28.8 ng/mL
== END 2021-03-09 23:59 | disposition short-term general hospital (02) ==
LOC: MTLAB 08:44
PROVIDERS: PCP Family Medicine; Referring Provider Family Medicine; Visit Provider Family Medicine
DX: Z00.00 Encounter for general adult medical examination without abnormal findings (principal); R73.9 Hyperglycemia, unspecified; E78.5 Hyperlipidemia, unspecified; I10 Essential (primary) hypertension; E55.9 Vitamin D deficiency, unspecified
CPT/HCPCS: 36415; 80053; 80061; 82306; 83036; 85025

== ENCOUNTER 2021-05-07 12:57 | Outpatient (CLI) | payer MEDICARE, BC, SELFPAY ==
--- NOTE | 2021-05-07 13:01 | BI_ITS ---
MAMMOGRAPHY - BILATERAL SCREENING 3-D TOMOSYNTHESIS REASON FOR EXAM: Female, 71 years old. SCREENING PERTINENT HISTORY: No significant family history. TECHNIQUE: 2-D mammograms and 3-D Tomosynthesis of the breast (s) were performed. CAD was performed. COMPARISON: 05/03/2020 FINDINGS: The breast composition is composed of scattered fibroglandular density. Scattered benign calcifications are seen. No dense spiculated masses or suspicious microcalcifications are identified. No architectural distortion is identified. There is no skin thickening or retraction. There has been no significant change since the prior study. BI/SCRN MAMM (CAD)W/DEMARIO BILAT IMPRESSION: No mammographic signs of malignancy. Routine yearly mammograms recommended. ASSESSMENT CATEGORY: BIRADS Category 1: Negative. A letter regarding these results will be sent to the patient by the facility within 30 days. FOLLOW UP RECOMMENDATION: Yearly follow up mammogram recommended. (A) Approximately 10% of breast cancers are not detected by mammography. A normal mammogram should not delay biopsy of a clinically suspicious abnormality. Electronically Signed: Cuba Malone MD at 14:49 EDT ,
== END 2021-05-07 23:59 | disposition home or self-care (01) ==
LOC: OPBI 12:58
PROVIDERS: PCP Family Medicine; Visit Provider Family Medicine
DX: Z12.31 Encounter for screening mammogram for malignant neoplasm of breast (principal)
CPT/HCPCS: 77063; 77067

== ENCOUNTER → 2022-01-04 | Outpatient (CLI) | payer MEDICARE, BC, SELFPAY ==
[2022-01-04 10:52] LABS: Cholesterol 251 mg/dL (200); High Density Lipoprotein 63 mg/dL; Thyroid Stim Hormone (TSH) 1.05 uIU/mL (0.358-3.74); Triglycerides 212 mg/dL; Very Low Density Lipoprotein 42 mg/dL (5-40)
== END | disposition home or self-care (01) ==
LOC: MTLAB 08:07
PROVIDERS: PCP Nurse Practitioner Family; Referring Provider Nurse Practitioner Family; Visit Provider Nurse Practitioner Family
DX: I10 Essential (primary) hypertension (principal); E78.5 Hyperlipidemia, unspecified
CPT/HCPCS: 36415; 80061; 84443

== ENCOUNTER → 2022-06-21 | Outpatient (CLI) | payer MEDICARE, BC, SELFPAY ==
[2022-06-21 09:59] LABS: Absolute Lymphocyte Count 0.96 X10^3/uL (0.83-4.51); Absolute Neutrophil Count 3.9 X10^3/uL (2.0-7.7); Basophil# 0.05 X10^3/uL; Basophil% 0.9 % (0-1); Eosinophil# 0.15 X10^3/uL; Eosinophils% 2.7 % (0-5); Hematocrit 35.8 % (37-47); Hemoglobin 11.2 g/dL (12.0-15.0); Lymphocyte # 0.96 X10^3/ul (0.83-4.51); Lymphocyte % 17.2 % (19-41); Mean Corp Hgb Conc 31.3 g/dL (32-36); Mean Corpuscular Hgb 30.9 pg (27.0-32.0); Mean Corpuscular Volume 98.9 fL (81-99); Mean Platelet Vol. 10.4 fl (6.2-12.0); Monocyte# 0.49 X10^3/uL; Monocyte% 8.8 % (0-10); NRBC Flagged by Analyzer 0 % (0-5); Neutrophil # 3.89 X10^3/uL (2.7-7.7); Neutrophil % 69.9 % (47-70); Platelet Count 206 K/mm3 (150-450); RBC Distribution Width CV 13.3 % (11.6-14.6); RBC Distribution Width SD 47.7 fl (35.1-43.9); Red Blood Count 3.62 M/mm3 (4.2-5.4); White Blood Count 5.6 K/mm3 (4.4-11.0)
[2022-06-21 10:14] LABS: Vitamin D,25 Hydroxy 77.5 ng/mL
[2022-06-21 10:18] LABS: ALB/GLOB Ratio 0.9 RATIO (0.9-2.4); AST(SGOT) 26 U/L (15-37); Alanine Aminotransfer ALT/SGPT 47 U/L (13-56); Albumin, Serum 3.4 g/dL (3.2-5.0); Alkaline Phosphatase 69 U/L (45-117); Anion Gap 3 (5-15); BUN 23 mg/dL (7-18); BUN/Creat Ratio 35.7 RATIO (10-20); Calcium,Total 9.5 mg/dL (8.5-10.1); Chloride 108 mmol/L (98-107); Cholesterol 164 mg/dL (200); Creatinine, Serum 0.64 mg/dL (0.55-1.02); EST Glomerular Filtration Rate 96 mL/min (>60); Est Glom Filt Rate - Afr Amer 116 mL/min (>60); Globulin 3.6 g/dL (2.2-4.2); Glucose 123 mg/dL (74-106); High Density Lipoprotein 61 mg/dL; Potassium 3.7 mmol/L (3.5-5.1); Sodium Level 138 mmol/L (136-145); Triglycerides 149 mg/dL; Very Low Density Lipoprotein 30 mg/dL (5-40)
== END | disposition home or self-care (01) ==
LOC: MTLAB 08:06
PROVIDERS: PCP Nurse Practitioner Family; Referring Provider Nurse Practitioner Family; Visit Provider Nurse Practitioner Family
DX: I10 Essential (primary) hypertension (principal); E78.5 Hyperlipidemia, unspecified; E55.9 Vitamin D deficiency, unspecified
CPT/HCPCS: 36415; 80053; 80061; 82306; 85025

== ENCOUNTER → 2022-07-09 | Outpatient (CLI) | payer MEDICARE, BC, SELFPAY ==
--- NOTE | 2022-07-09 14:57 | BI_ITS ---
MAMMOGRAPHY - BILATERAL SCREENING REASON FOR EXAM: Female, 72 years old. Routine annual screening examination. PERTINENT HISTORY: Non-contributory. Occasional breast tenderness. TECHNIQUE: Digital bilateral breast demario (3D mammographic acquisition) in the CC and MLO projections. 2-D mediolateral oblique (MLO) and craniocaudad (CC) views of both breasts were obtained. CAD: Full Field Digital Mammography with Computer Added Detection was performed. COMPARISON: Comparison is made with prior study May 07, 2021 and May 03, 2020. FINDINGS: Breast Composition: There are scattered areas of fibroglandular density. There are no dominant masses or suspicious calcifications. No other significant abnormalities are identified. There has been no significant change since the prior study. BI/SCRN MAMM (CAD)W/DEMARIO BILAT IMPRESSION: Stable bilateral screening mammogram. Yearly follow-up mammogram recommended. (A) ASSESSMENT CATEGORY: BIRADS Category 1: Negative. A letter regarding these results will be sent to the patient by the facility within 30 days. Approximately 10% of breast cancers are not detected by mammography. A normal mammogram should not delay biopsy of a clinically suspicious abnormality. [id number] Electronically Signed: Tripp Turpin MD at 8:02 EDT ,
--- NOTE | 2022-07-09 15:03 | BD_ITS ---
STUDY: DUAL ENERGY X-RAY ABSORPTIOMETRY / DXA REASON FOR EXAM: Female, 72 years old. [id number] TECHNIQUE: Bone Mineral Density (BMD) measurements of lumbar spine and bilateral hips were obtained. COMPARISON: Comparison is made with prior study dated August 31, 2015. FINDINGS: Lumbar Spine (L1-L4): g/cm2 (0.963) / T-score (-0.5) / Z-score (1.8) Findings are suggestive of normal bone density with a low fracture risk. Left Femur Total: g/cm2 (0.874) / T-score (-0.6) / Z-score (1.1) Left Femoral Neck: g/cm2 (0.579) / T-score (-2.4) / Z-score (-0.4) Right Femur Total: g/cm2 (0.841) / T-score (-0.8) / Z-score (0.9) Right Femoral Neck: g/cm2 (0.600) / T-score (-2.2) / Z-score (-0.3) The T-Scores on the most recent prior examination were: Lumbar Spine (L1-L4): There has been worsening of bone density since the previous examination. Left Femur Total: which represents an improvement of 1.8%. Right Femur Total: which represents an improvement of 1.3%. BD/Dexa Bone Density Study IMPRESSION: The patient is considered osteopenic as outlined below according to World Chris Organization (WHO) criteria with a high fracture risk. There has been improvement of bone density since the previous examination. Reference Information: The T-score is the number of standard deviations above or below the standard which is normal for young adults at their peak bone mineral density. The World Health Organization (WHO) interprets the T-scores as follows: Above -1 Normal bone density Between -1 and -2.5 Osteopenia Equal to / or below -2.5 Osteoporosis As a practical clinical guideline, osteopenia may be graded as follows: Mild -1 through -1.5 Moderate -1.6 through -2.0 Severe -2.1 through -2.4 The Z-score is the number of standard deviations above or below age-matched controls. A Z-score of less than -1.5 would be considered abnormal. References: 1. NIH Osteoporosis and Related Bone Diseases www osteo.org 2. International Society for Clinical Densitometry www iscd.org 3. National Osteoporosis Foundation www nof.org Electronically Signed: Tripp Turpin MD at 14:44 EDT ,
== END | disposition home or self-care (01) ==
LOC: OPBD 14:55
PROVIDERS: PCP Nurse Practitioner Family; Referring Provider Nurse Practitioner Family; Visit Provider Nurse Practitioner Family
DX: Z12.31 Encounter for screening mammogram for malignant neoplasm of breast (principal); Z78.0 Asymptomatic menopausal state; M85.80 Other specified disorders of bone density and structure, unspecified site
CPT/HCPCS: 77063; 77067; 77080

== ENCOUNTER → 2022-07-31 | Outpatient (CLI) | payer MEDICARE, BC, SELFPAY ==
[2022-07-31 10:13] LABS: Absolute Lymphocyte Count 1.47 X10^3/uL (0.83-4.51); Absolute Neutrophil Count 3.6 X10^3/uL (2.0-7.7); Basophil# 0.05 X10^3/uL; Basophil% 0.8 % (0-1); Eosinophil# 0.36 X10^3/uL; Eosinophils% 5.9 % (0-5); Hematocrit 37.9 % (37-47); Hemoglobin 11.6 g/dL (12.0-15.0); Lymphocyte # 1.47 X10^3/ul (0.83-4.51); Mean Corp Hgb Conc 30.6 g/dL (32-36); Mean Corpuscular Hgb 30.4 pg (27.0-32.0); Mean Corpuscular Volume 99.2 fL (81-99); Mean Platelet Vol. 10.1 fl (6.2-12.0); Monocyte# 0.67 X10^3/uL; Monocyte% 10.9 % (0-10); NRBC Flagged by Analyzer 0 % (0-5); Neutrophil # 3.57 X10^3/uL (2.7-7.7); Neutrophil % 58.2 % (47-70); Platelet Count 223 K/mm3 (150-450); RBC Distribution Width CV 13.6 % (11.6-14.6); RBC Distribution Width SD 49.6 fl (35.1-43.9); RET-HE 33.7 pg (30-35); Red Blood Count 3.82 M/mm3 (4.2-5.4); White Blood Count 6.1 K/mm3 (4.4-11.0)
== END | disposition home or self-care (01) ==
LOC: MTLAB 08:30
PROVIDERS: PCP Nurse Practitioner Family; Referring Provider Nurse Practitioner Family; Visit Provider Nurse Practitioner Family
DX: D64.9 Anemia, unspecified (principal)
CPT/HCPCS: 36415; 85025; 85045

== ENCOUNTER → 2022-12-18 | Outpatient (CLI) | payer MEDICARE, BC, SELFPAY ==
[2022-12-18 10:51] LABS: Cholesterol 211 mg/dL (200); High Density Lipoprotein 88 mg/dL; Triglycerides 108 mg/dL; Very Low Density Lipoprotein 22 mg/dL (5-40)
[2022-12-18 10:52] LABS: Hemoglobin A1c 5.4 % (3.8-5.6)
[2022-12-22 10:07] LABS: Testosterone, % Free 2.56 % (0.50-2.80); Testosterone, Free 0.18 ng/dL (0.10-0.85); Testosterone, Total 7 ng/dL (3-67)
== END | disposition home or self-care (01) ==
PROVIDERS: PCP Nurse Practitioner Family; Referring Provider Nurse Practitioner Family; Visit Provider Nurse Practitioner Family
DX: E78.5 Hyperlipidemia, unspecified (principal); R73.03 Prediabetes
CPT/HCPCS: 36415; 80061; 83036; 84402; 84403

== ENCOUNTER → 2022-12-27 | Outpatient (CLI) | payer MEDICARE, BC, SELFPAY ==
[2022-12-27 17:33] LABS: Absolute Lymphocyte Count 1.32 X10^3/uL (0.83-4.51); Absolute Neutrophil Count 3.4 X10^3/uL (2.0-7.7); Basophil# 0.05 X10^3/uL; Basophil% 0.9 % (0-1); Eosinophil# 0.15 X10^3/uL; Eosinophils% 2.8 % (0-5); Hematocrit 39.6 % (37-47); Hemoglobin 12.8 g/dL (12.0-15.0); Lymphocyte # 1.32 X10^3/ul (0.83-4.51); Lymphocyte % 24.5 % (19-41); Mean Corp Hgb Conc 32.3 g/dL (32-36); Mean Corpuscular Hgb 31.8 pg (27.0-32.0); Mean Corpuscular Volume 98.5 fL (81-99); Mean Platelet Vol. 10.3 fl (6.2-12.0); Monocyte# 0.48 X10^3/uL; Monocyte% 8.9 % (0-10); NRBC Flagged by Analyzer 0 % (0-5); Neutrophil # 3.38 X10^3/uL (2.7-7.7); Neutrophil % 62.7 % (47-70); Platelet Count 227 K/mm3 (150-450); RBC Distribution Width CV 13.9 % (11.6-14.6); RBC Distribution Width SD 51.1 fl (35.1-43.9); Red Blood Count 4.02 M/mm3 (4.2-5.4); White Blood Count 5.4 K/mm3 (4.4-11.0)
[2022-12-27 17:51] LABS: ALB/GLOB Ratio 1.1 RATIO (0.9-2.4); AST(SGOT) 16 U/L (15-37); Alanine Aminotransfer ALT/SGPT 25 U/L (13-56); Albumin, Serum 3.9 g/dL (3.2-5.0); Alkaline Phosphatase 68 U/L (45-117); Anion Gap 6 (5-15); BUN 27 mg/dL (7-18); BUN/Creat Ratio 36.7 RATIO (10-20); Calcium,Total 9.5 mg/dL (8.5-10.1); Chloride 106 mmol/L (98-107); Creatinine, Serum 0.74 mg/dL (0.55-1.02); EST Glomerular Filtration Rate 82 mL/min (>60); Est Glom Filt Rate - Afr Amer 100 mL/min (>60); Globulin 3.5 g/dL (2.2-4.2); Glucose 131 mg/dL (74-106); Potassium 4.1 mmol/L (3.5-5.1); Protein, Total 7.4 g/dL (6.4-8.2); Sodium Level 139 mmol/L (136-145)
== END | disposition home or self-care (01) ==
LOC: MTLAB 14:10
PROVIDERS: PCP Nurse Practitioner Family; Referring Provider Nurse Practitioner Family; Visit Provider Nurse Practitioner Family
DX: D64.9 Anemia, unspecified (principal)
CPT/HCPCS: 36415; 80053; 85025

== ENCOUNTER → 2023-03-24 | Outpatient (CLI) | payer MEDICARE, BC, SELFPAY ==
[2023-03-24 10:32] LABS: Absolute Neutrophil Count 3.2 X10^3/uL (2.0-7.7); Basophil# 0.05 X10^3/uL; Eosinophil# 0.22 X10^3/uL; Eosinophils% 4.3 % (0-5); Hemoglobin 12.8 g/dL (12.0-15.0); Lymphocyte % 21.4 % (19-41); Mean Corp Hgb Conc 32.8 g/dL (32-36); Mean Corpuscular Hgb 32.5 pg (27.0-32.0); Mean Platelet Vol. 10.1 fl (6.2-12.0); Monocyte# 0.57 X10^3/uL; Monocyte% 11.1 % (0-10); NRBC Flagged by Analyzer 0 % (0-5); Neutrophil # 3.19 X10^3/uL (2.7-7.7); Platelet Count 213 K/mm3 (150-450); RBC Distribution Width CV 13.5 % (11.6-14.6); RBC Distribution Width SD 49.5 fl (35.1-43.9); Red Blood Count 3.94 M/mm3 (4.2-5.4); White Blood Count 5.1 K/mm3 (4.4-11.0)
[2023-03-24 10:47] LABS: Vitamin D,25 Hydroxy 31.7 ng/mL
[2023-03-24 11:32] LABS: AST(SGOT) 18 U/L (15-37); Alanine Aminotransfer ALT/SGPT 32 U/L (13-56); Albumin, Serum 3.7 g/dL (3.2-5.0); Alkaline Phosphatase 62 U/L (45-117); Anion Gap 5 (5-15); BUN 24 mg/dL (7-18); BUN/Creat Ratio 30.9 RATIO (10-20); Calcium,Total 9.4 mg/dL (8.5-10.1); Chloride 107 mmol/L (98-107); Cholesterol 317 mg/dL (200); Creatinine, Serum 0.78 mg/dL (0.55-1.02); EST Glomerular Filtration Rate 77 mL/min (>60); Est Glom Filt Rate - Afr Amer 93 mL/min (>60); Globulin 3.7 g/dL (2.2-4.2); Glucose 129 mg/dL (74-106); High Density Lipoprotein 74 mg/dL; Protein, Total 7.4 g/dL (6.4-8.2); Sodium Level 138 mmol/L (136-145); Thyroid Stim Hormone (TSH) 1.36 uIU/mL (0.358-3.74); Triglycerides 215 mg/dL; Very Low Density Lipoprotein 43 mg/dL (5-40)
== END | disposition home or self-care (01) ==
LOC: MTLAB 08:15
PROVIDERS: PCP Nurse Practitioner Family; Referring Provider Nurse Practitioner Family; Visit Provider Nurse Practitioner Family
DX: I10 Essential (primary) hypertension (principal); D64.9 Anemia, unspecified; E78.5 Hyperlipidemia, unspecified; E55.9 Vitamin D deficiency, unspecified
CPT/HCPCS: 36415; 80053; 80061; 82306; 84443; 85025

== ENCOUNTER → 2023-05-07 | Outpatient (CLI) | payer MEDICARE, BC, SELFPAY ==
--- NOTE | 2023-05-07 10:01 | VDLE_ITS ---
Reason For Study: Right leg pain RIGHT LEFT CFV is compressible, spontaneous, phasic, GSV is normal. competent and demonstrates normal CFV is compressible, spontaneous, phasic, augmentation. competent, and demonstrates normal Procedure augmentation. This is a venous duplex using B-mode, color FV is compressible, spontaneous, phasic, flow and spectral Doppler. competent and demonstrates normal Exam performed in department. augmentation. A preliminary report was called and/or faxed POP V is compressible, spontaneous, phasic, to RN voicemail. competent and demonstrates normal augmentation. T/P Trunk is compressible. PTV is compressible. LT PerV is compressible. Varicose vein at distal [place] (area of concern) is partially noncompressible. VL/Venous Duplex US, Unilateral Interpretation Summary Deep veins of the left lower extremity are patent and compressible segmentally. There is no evidence of left lower extremity deep vein thrombosis. The left great saphenous vein gabbi ears patent and compressible segmentally. Superficial thrombus noted in distal calf varicosities Ordering Physician: Francheska Mcdowell Referring Physician: Francheska Mcdowell Performed By: Jennie Snow RVDoris
--- OUTSIDE RECORDS SUMMARY | 2023-05-07 11:48 | XMS RPT_ITS | CCD ---
Author Name Unknown Address [id number] [place] [address] Organization [facility] Care Team Providers Care Insole Coverer Name Role Phone Sharmin Espino LPN N Unavailable Unavailab Velma Phelps LPN N Unavailable [phone] Sharmin Espino LPN Unavailable Unavailab le Sharmin Espino LPN Unavailable Unavailab Ganesh White MD Primary Care Provider Francheska Mcdowell CNP Unavailable Francheska Mcdowell CNP Unavailable SlaCha keller LPN Unavailable Unavailable Unavailable Unavailable Unavailable Unavailable Isabelle Martin MA Unavailable Unavailable Darvin Frazier MD Unavailable [phone] Francheska Mcdowell CNP Attending Unavailable Francheska Mcdowell CNP Consulting Unavailable Medications Completed/Discontinued Medications Medication Drug Class(es) Dates Sig (Normalized) Sig (Original) ascorbic acid 500 mg extended release oral tablet (20 sources) Vitamin C Start: 08-16-2020 take 1 tablet by mouth once daily ascorbic acid, time released (VITAMIN C) 500 mg TbER Take 1 tablet by mouth once daily. 0 08/16/2020 Active Problems Active Problems Problem Classification Problem Date Documented Da te Episodic/Chronic Deficiency and other anemia (15 sources) Normocytic anemia; Translations: [Normocytic anemia] 07-05-2022 Episodic Past or Other Problems Problem Classification Problem Date Documented Da te Episodic/Chronic Acute bronchitis (4 sources) Acute bronchitis; Translations: [Acute bronchitis, unspecified] Onset: 07-16-2016 07-16-2016 Episodic Chronic obstructive pulmonary disease and bronchiectasis (4 sources) Bronchitis; Translations: [Bronchitis, not specified as acute or chronic] Onset: 07-16-2016 07-16-2016 Episodic Conditions associated with dizziness or vertigo (2 sources) Lightheadedness; Translations: [Dizziness and giddiness] Onset: 08-02-2019 07-13-2021 Episodic Immunizations and screening for infectious disease (2 sources) Exposure to communicable disease; Translations: [Contact with and (suspected) exposure to unspecified communicable disease] Onset: 08-16-2020 07-13-2021 Episodic Nonspecific chest pain (2 sources) Rib pain; Translations: [Pleurodynia] Onset: 10-31-2016 10-31-2016 Episodic Syncope (2 sources) Near syncope; Translations: [Syncope and collapse] Onset: 08-02-2019 07-13-2021 Episodic Unclassified (18 sources) 5 pregnancies 12-31-2021 Results Test Name Value Interpretation Reference Range Facil ity Vital Signs Date Time Vital Sign Value Performing Clinician Facility 12-24-2022 13:40-0400 Body height 160.02 cm Isabelle Martin MA [facility] Work Phone: 12-24-2022 13:40-0400 Body mass index (BMI) [Ratio] 26.75 kg/m2 Isabelle Martin MA [facility] Work Phone: 12-24-2022 13:40-0400 Body surface area Derived from formula 1.72 m2 Isabelle Martin MA [facility] Work Phone: 12-24-2022 13:40-0400 Body temperature 96.3 [degF] Isabelle Martin MA [facility] Work Phone: 12-24-2022 13:40-0400 Body weight 68.49 kg Isabelle Martin MA [facility]; [facility] Work Phone: 12-24-2022 13:40-0400 Diastolic blood pressure 80 mm[Hg] Isabelle Martin MA [facility] Work Phone: Encounters Encounter Date Encounter Type Care Provider Facility Start: 12-24-2022 End: 12-27-2022 Office outpatient visit 25 minutes Francheska Mcdowell CNP Work Phone: [facility] Start: 12-09-2022 End: 12-09-2022 Annotation/Addendum Francheska Mcdowell CNP Work Phone: [facility] Start: 10-16-2022 End: 10-16-2022 Annotation/Addendum Francheska Mcdowell CNP Work Phone: [facility] Start: 08-06-2022 End: 08-06-2022 Annotation/Addendum Francheska Mcdowell CNP Work Phone: [facility] Start: 07-29-2022 End: 07-29-2022 Annotation/Addendum Francheska Mcdowell CNP Work Phone: [facility] Start: 07-05-2022 End: 07-05-2022 Patient encounter procedure Francheska Mcdowell [employer] Work Phone: [facility] Start: 06-19-2022 ambulatory Francheska Mcdowell [employer] [facility] Start: 06-19-2022 End: 07-07-2022 Office outpatient visit 25 minutes Francheska Mcdowell CNP Work Phone: [facility] Start: 06-19-2022 Review Francheska Mcdowell CNP Work Phone: [facility] Start: 04-19-2022 End: 04-19-2022 Annotation/Addendum Francheska Mcdowell [employer] Work Phone: [facility] Start: 12-31-2021 End: 01-06-2022 Office consultation new/estab patient 40 min Francheska Mcdowell [employer] Work Phone: [facility] Start: 09-10-2021 End: 09-10-2021 Office outpatient visit 15 minutes Ganesh Zurita MD Work Phone: [facility] [place] Procedures Date Procedure Procedure Detail Performing Clinician Start: 07-09-2022 End: 07-10-2022 Dexa Bone Density Study Procedure Note: See Note; NOTES: [facility] Imaging Services [address] [place] [address] [place] [address] Dexa Bone Density Study MR#: [id number] Acct: [id number] Name: MARGARET BRASWELL Rep #: [id number] : 1950 F 72 From: Tripp guillen MD PCP: GOYO Cuello Status: REG CLI Study: Dexa Bone Density Study Date of Exam: 07/09/22 Exam# [id number] Ordering Dr: Francheska Mcdowell STUDY: DUAL ENERGY X-RAY ABSORPTIOMETRY / DXA REASON FOR EXAM: Female, 72 years old. [id number] TECHNIQUE: Bone Mineral Density (BMD) measurements of lumbar spine and bilateral hips were obtained. COMPARISON: Comparison is made with prior study dated August 31, 2015. FINDINGS: Lumbar Spine (L1-L4): g/cm2 (0.963) / T-score (-0.5) / Z-score (1.8) Findings are suggestive of normal bone density with a low fracture risk. Left Femur Total: g/cm2 (0.874) / T-score (-0.6) / Z-score (1.1) Left Femoral Neck: g/cm2 (0.579) / T-score (-2.4) / Z-score (-0.4) Right Femur Total: g/cm2 (0.841) / T-score (-0.8) / Z-score (0.9) Right Femoral Neck: g/cm2 (0.600) / T-score (-2.2) / Z-score (-0.3) The T-Scores on the most recent prior examination were: Lumbar Spine (L1-L4): There has been worsening of bone density since the previous examination. Left Femur Total: which represents an improvement of 1.8%. Right Femur Total: which represents an improvement of 1.3%. BD/Dexa Bone Density Study IMPRESSION: The patient is considered osteopenic as outlined below according to World Chris Organization (WHO) criteria with a high fracture risk. There has been improvement of bone density since the previous examination. Reference Information: The T-score is the number of standard deviations above or below the standard which is normal for young adults at their peak bone mineral density. The World Health Organization (WHO) interprets the T-scores as follows: Above -1 Normal bone density Between -1 and -2.5 Osteopenia Equal to / or below -2.5 Osteoporosis As a practical clinical guideline, osteopenia may be graded as follows: Mild -1 through -1.5 Moderate -1.6 through -2.0 Severe -2.1 through -2.4 The Z-score is the number of standard deviations above or below age-matched controls. A Z-score of less than -1.5 would be considered abnormal. References: 1. NIH Osteoporosis and Related Bone Diseases www osteo.org 2. International Society for Clinical Densitometry www iscd.org 3. National Osteoporosis Foundation www nof.org Electronically Signed: Tripp Turpin MD at 14:44 EDT , CC: Francheska Mcdowell NP; MEASUREMENT OPERATOR-C Francheska Mcdowell Acid Patroller: Signed Francheska Mcdowell CNP Work Phone: Start: 07-09-2022 End: 07-10-2022 SCRN MAMM (CAD)W/DEMARIO BILAT Procedure Note: See Note; NOTES: [facility] Imaging Services [address] [place] [address] SCRN MAMM (CAD)W/DEMARIO BILAT MR#: [id number] Acct: [id number] Name: MARGARET BRASWELL Rep #: [id number] : 1950 F 72 From: Tripp guillen MD PCP: Francheska Mcdowell NP-C Status: [facility] Study: SCRN MAMM (CAD)W/DEMARIO BILAT Date of Exam: 06/24 08/16 Exam# [id number] Ordering Dr: Francheska Mcdowell MAMMOGRAPHY - BILATERAL SCREENING REASON FOR EXAM: Female, 72 years old. Routine annual screening examination. PERTINENT HISTORY: Non-contributory. Occasional breast tenderness. TECHNIQUE: Digital bilateral breast demario (3D mammographic acquisition) in the CC and MLO projections. 2-D mediolateral oblique (MLO) and craniocaudad (CC) views of both breasts were obtained. CAD: Full Field Digital Mammography with Computer Added Detection was performed. COMPARISON: Comparison is made with prior study May 07, 2021 and May 03, 2020. FINDINGS: Breast Composition: There are scattered areas of fibroglandular density. There are no dominant masses or suspicious calcifications. No other significant abnormalities are identified. There has been no significant change since the prior study. BI/SCRN MAMM (CAD)W/DEMARIO BILAT IMPRESSION: Stable bilateral screening mammogram. Yearly follow-up mammogram recommended. (A) ASSESSMENT CATEGORY: BIRADS Category 1: Negative. A letter regarding these results will be sent to the patient by the facility within 30 days. Approximately 10% of breast cancers are not detected by mammography. A normal mammogram should not delay biopsy of a clinically suspicious abnormality. [id number] Electronically Signed: Tripp Turpin MD at 8:02 EDT , CC: Francheska Mcdowell MEASUREMENT OPERATOR; GOYO Mcdowell Acid Patroller: Signed Francheska Mcdowell CNP Work Phone: Start: 09-10-2021 Adult depression screening assessment Ganesh Zurita MD Work Phone: Start: 07-16-2016 End: 07-16-2016 Documentation of current medications Sharmin Espino LPN Start: 10-27-2013 Colonoscopy Ganesh Zurita MD Work Phone: Screening colonoscopy [facility] Plan of Treatment Date Care Activity Detail Author Start: 10-28-[address] [facility] Start: 10-28-2023 COLORECTAL CANCER SCREENING COLORECTAL CANCER SCREENING [facility] Start: 12-24-2022 25 hydroxy includes fractions if performed CALCIFEDIOL (38888) [facility] Work Phone: Start: 12-24-2022 Assay of thyroid stimulating hormone tsh TSH (THYROID STIMULATING HORMONE) (73463) : in 3 mo [facility]; [facility] Work Phone: Start: 12-24-2022 Blood count complete auto&auto difrntl wbc CBC, PLATELETS & AUT DIFF (90436) : in 3 mo [facility]; [facility] Work Phone: Start: 12-24-2022 Comprehensive metabolic panel METABOLIC PANEL, COMPREHENSIVE (02301) : in 3 mo [facility]; [facility] Work Phone: Start: 12-24-2022 Lipid panel LIPID PANEL (81989) : in 3 months [facility]; [facility] Work Phone: Start: 12-24-2022 Procedure Education Eprescribed prescriptions (G8553) [facility]; [facility] Work Phone: Start: 12-24-2022 Provider Instructions for Treatment Follow up in 6 months [facility]; [facility] Work Phone: Start: 12-09-2022 Assay of testosterone free TESTOSTERONE ,TOT/FREE 88548 (46500) [facility]; [facility] Work Phone: Start: 12-09-2022 Hemoglobin glycosylated a1c HGB A1C (34536) [facility]; [facility] Work Phone: Start: 12-09-2022 Lipid panel LIPID PANEL (53979) [facility] Work Phone: Start: 09-10-2022 Adult depression screening assessment DEPRESSION SCREENING [facility] Start: 09-10-2022 ANNUAL PCP TEAM CHRONIC DISEASE VISIT ANNUAL PCP TEAM CHRONIC DISEASE VISIT [facility] Start: 09-10-2022 BP CONTROLLED (<130/80) BP CONTROLLED (<130/80) [facility] in Start: 08-06-2022 Blood count leukocyte wbc automated EOSINOPHIL COUNT 5298 (10861) : Absolute-Do in Oct [facility]; [facility] Work Phone: Start: 08-06-2022 CBC, PLATELETS & MANUAL DIFF (62631) : Oct CBC, PLATELETS & MANUAL DIFF (47617) : Oct [facility]; [facility] Work Phone: Start: 08-06-2022 Comprehensive metabolic panel METABOLIC PANEL, COMPREHENSIVE (03832) : Do in Oct [facility]; [facility] Work Phone: Start: 07-05-2022 Blood count complete auto&auto difrntl wbc CBC, PLATELETS & AUT DIFF (76004) : PLEASE DO PERIPHERAL SMEAR IF INDICATED [facility]; [facility] Work Phone: Start: 07-05-2022 Blood count reticulocyte automated RETICULOCYTE COUNT MANU (41447) : absolute count [facility]; [facility] Work Phone: Start: 07-05-2022 Blood smear peripheral interp phys w/writ report BLOOD SMEAR INTERPRETATION (15081) [facility]; [facility] Work Phone: Start: 06-19-2022 25 hydroxy includes fractions if performed CALCIFEDIOL (29825) [facility]; [facility] Work Phone: Start: 06-19-2022 Blood count complete auto&auto difrntl wbc CBC, PLATELETS & AUT DIFF (06324) [facility]; [facility] Work Phone: Start: 06-19-2022 Comprehensive metabolic panel METABOLIC PANEL, COMPREHENSIVE (03522) [facility]; [facility] Work Phone: Start: 06-19-2022 Lipid panel LIPID PANEL (78411) [facility] Work Phone: Start: 06-19-2022 Procedure Education Eprescribed prescriptions (G8553) [facility]; [facility] Work Phone: Start: 06-19-2022 Provider Instructions for Treatment Follow up in 6 months for A1c, cholesterol [facility]; [facility] Work Phone: Start: 06-19-2022 Hemoglobin glycosylated a1c HgA1C , Office (91583) [facility]; [facility] Work Phone: Start: 12-31-2021 Lipid panel LIPID PANEL (63836) [facility] Work Phone: Start: 12-31-2021 Assay of thyroid stimulating hormone tsh TSH (THYROID STIMULATING HORMONE) (61932) [facility]; [facility] Work Phone: Start: 12-31-2021 Procedure Education Eprescribed prescriptions (G8553) [facility]; [facility] Work Phone: Start: 12-31-2021 Provider Instructions for Treatment Follow up in 6 months [facility]; [facility] Work Phone: Start: 10-25-[address] [facility] Start: 09-10-2021 End: 11-10-2021 CBC W Auto Differential panel - Blood CBC + DIFF Lab Routine Encounter for medication monitoring Expected: 09/10/2021, Expires: 11/10/2021 [facility] Work Phone: Payers Date Payer Category Payer Medicare [id number] 2021 Unknown [id number] 2013 Medicaid [employer] [id number] 2013-Present [phone] [address] [place] [address] Medicaid [id number] 1950 Unknown [id number] Unknown Social History Date Type Detail Facility Start: 10-15-2013 Tobacco smoking status NHIS Never smoked tobacco [facility] Work Phone: Start: 07-13-2021 End: 09-10-2021 Alcohol intake Current drinker of alcohol (finding) [facility] Start: 10-15-2013 History SDOH Alcohol Comment occasional wine- 6-[address] [facility] Start: 1950 Sex Assigned At Not on file [facility] Start: 10-15-2013 Tobacco use and exposure Smokeless tobacco non-user [facility] Work Phone: Start: 08-31-2021 End: 09-10-2021 Exposure to SARS-CoV-2 (event) Not sure [facility] Alcohol Use: Alcohol Use: [facility] Work Phone: Tobacco Use: Tobacco Use: [facility] Work Phone: Clinical Notes 09-10-2021 Ganesh Zurita MD - 09/10/2021 1:33 PM EDTRaymmadison Zurita MD - 09/10/2021 1:20 PM EDT Note Date & Type Note Facility 09-10-2021 Note HNO ID: [id number] Author: Ganesh Zurita MD Service: ? Author Type: Physician Type: Progress Notes Filed: 09/10/2021 1:35 PM Note Text: This note was created using [employer]. Subjective Margaret Braswell is a 71 year old female who presents today for follow-up for multiple medical problems. See list. Her chronic medical problems are stable. Her blood pressure is well controlled on her current regimen. Cholesterol is improved with Zocor. She has no new complaints today. HPI Review of Systems Constitutional: Negative. HENT: Negative. Eyes: Negative. Respiratory: Negative. Cardiovascular: Negative. Gastrointestinal: Negative. Endocrine: Negative. Genitourinary: Negative. Musculoskeletal: Negative. Skin: Negative. Allergic/Immunologic: Negative. Neurological: Negative. Hematological: Negative. Psychiatric/Behavioral: Negative. Objective BP 120/62 Pulse 74 Temp 36.2 ?C (97.1 ?F) (Temporal) Resp 14 Ht 160 cm (5' 3 ) Wt 68.5 kg (151 lb) SpO2 98% BMI 26.75 kg/m? Physical Exam Vitals reviewed. Constitutional: Appearance: Normal appearance. HENT: Head: Normocephalic and atraumatic. Nose: Nose normal. Eyes: Extraocular Movements: Extraocular movements intact. Pupils: Pupils are equal, round, and reactive to light. Cardiovascular: Rate and Rhythm: Normal rate and regular rhythm. Pulmonary: Effort: Pulmonary effort is normal. Breath sounds: Normal breath sounds. Abdominal: General: Bowel sounds are normal. Palpations: Abdomen is soft. Musculoskeletal: General: Normal range of motion. Cervical back: Normal range of motion and neck supple. Skin: General: Skin is warm and dry. Capillary Refill: Capillary refill takes less than 2 seconds. Neurological: General: No focal deficit present. Mental Status: She is alert and oriented to person, place, and time. Mental status is at baseline. Psychiatric: Mood and Affect: Mood normal. Behavior: Behavior normal. Assessment and Plan Margaret was seen today for 6 month exam. Diagnoses and all orders for this visit: Mixed hyperlipidemia - LIPID PANEL BASIC; Future - COMP METABOLIC PANEL; Future Hypertension, benign - COMP METABOLIC PANEL; Future Encounter for medication monitoring - CBC + DIFF; Future - COMP METABOLIC PANEL; Future Prediabetes - HGB A1C; Future [facility] 09-10-2021 Note HNO ID: [id number] Author: Ganesh Zurita MD Service: ? Author Type: Physician Type: Progress Notes Filed: 09/10/2021 1:35 PM Note Text: This note was created using [employer]. Subjective Margaret Braswell is a 71 year old female. HPI Review of Systems Objective BP 120/62 Pulse 74 Temp 36.2 ?C (97.1 ?F) (Temporal) Resp 14 Ht 160 cm (5' 3 ) Wt 68.5 kg (151 lb) SpO2 98% BMI 26.75 kg/m? Physical Exam Assessment and Plan [facility] 09-10-2021 History of Presen t illness Narrative This note was created using [employer]. Gaby Braswell is a 71 year old female who presents today for follow-up for multiple medical problems. See list. Her chronic medical problems are stable. Her blood pressure is well controlled on her current regimen. Cholesterol is improved with Zocor. She has no new complaints today. HPI Review of Systems Constitutional: Negative. HENT: Negative. Eyes: Negative. Respiratory: Negative. Cardiovascular: Negative. Gastrointestinal: Negative. Endocrine: Negative. Genitourinary: Negative. Musculoskeletal: Negative. Skin: Negative. Allergic/Immunologic: Negative. Neurological: Negative. Hematological: Negative. Psychiatric/Behavioral: Negative. Objective BP 120/62 Pulse 74 Temp 36.2 C (97.1 F) (Temporal) Resp 14 Ht 160 cm (5' 3 ) Wt 68.5 kg (151 lb) SpO2 98% BMI 26.75 kg/m Physical Exam Vitals reviewed. Constitutional: Appearance: Normal appearance. HENT: Head: Normocephalic and atraumatic. Nose: Nose normal. Eyes: Extraocular Movements: Extraocular movements intact. Pupils: Pupils are equal, round, and reactive to light. Cardiovascular: Rate and Rhythm: Normal rate and regular rhythm. Pulmonary: Effort: Pulmonary effort is normal. Breath sounds: Normal breath sounds. Abdominal: General: Bowel sounds are normal. Palpations: Abdomen is soft. Musculoskeletal: General: Normal range of motion. Cervical back: Normal range of motion and neck supple. Skin: General: Skin is warm and dry. Capillary Refill: Capillary refill takes less than 2 seconds. Neurological: General: No focal deficit present. Mental Status: She is alert and oriented to person, place, and time. Mental status is at baseline. Psychiatric: Mood and Affect: Mood normal. Behavior: Behavior normal. Assessment and Plan Margaret was seen today for 6 month exam. Diagnoses and all orders for this visit: Mixed hyperlipidemia - LIPID PANEL BASIC; Future - COMP METABOLIC PANEL; Future Hypertension, benign - COMP METABOLIC PANEL; Future Encounter for medication monitoring - CBC + DIFF; Future - COMP METABOLIC PANEL; Future Prediabetes - HGB A1C; Future This note was created using [employer]. Subjective Margaret Braswell is a 71 year old female. HPI Review of Systems Objective BP 120/62 Pulse 74 Temp 36.2 C (97.1 F) (Temporal) Resp 14 Ht 160 cm (5' 3 ) Wt 68.5 kg (151 lb) SpO2 98% BMI 26.75 kg/m Physical Exam Assessment and Plan documented in this encounter [facility] Name Dates Details Patient Instructions Indication:BMI 25.0-25.9,adult Start:31-Dec-2021 Instruction Type:Provider Instructions for Treatment How to Access Health Informa tion Online using Patient Portal and [employer] Apps Indication:BMI 25.0-25.9,adult Start:31-Dec-2021 Instruction Type:Patient Edu cation Patient Instructions Indication:Impaired fasting glucose Start:31-Dec-2021 Instruction Type:Provider Instructions for Treatment How to Access Health Informa tion Online using Patient Portal and [employer] Apps Indication:Impaired fasting glucose Start:31-Dec-2021 Instruction Type:Patient Edu cation [facility] Work Phone: [employer]* Name Dates Details Patient Instructions Indication:BMI 25.0-25.9,adult Start:31-Dec-2021 Instruction Type:Provider Instructions for Treatment How to Access Health Informa tion Online using Patient Portal and [employer] Apps Indication:BMI 25.0-25.9,adult Start:31-Dec-2021 Instruction Type:Patient Edu cation Patient Instructions Indication:Impaired fasting glucose Start:31-Dec-2021 Instruction Type:Provider Instructions for Treatment How to Access Health Informa tion Online using Patient Portal and [employer] Apps Indication:Impaired fasting glucose Start:31-Dec-2021 Instruction Type:Patient Edu cation [facility]; [facility] Work Phone: [employer]* Name Dates Details Patient Instructions Indication:BMI 25.0-25.9,adult Start:31-Dec-2021 Instruction Type:Provider Instructions for Treatment How to Access Health Informa tion Online using Patient Portal and [employer] Apps Indication:BMI 25.0-25.9,adult Start:31-Dec-2021 Instruction Type:Patient Edu cation Patient Instructions Indication:Impaired fasting glucose Start:31-Dec-2021 Instruction Type:Provider Instructions for Treatment How to Access Health Informa tion Online using Patient Portal and [employer] Apps Indication:Impaired fasting glucose Start:31-Dec-2021 Instruction Type:Patient Edu cation [facility]; [facility] Work Phone: instructions* Name Dates Details Patient Instructions Indication:BMI 25.0-25.9,adult Start:31-Dec-2021 Instruction Type:Provider Instructions for Treatment How to Access Health Informa tion Online using Patient Portal and [employer] Indication:BMI 25.0-25.9,adult Start:31-Dec-2021 Instruction Type:Patient Edu cation Patient Instructions Indication:Impaired fasting glucose Start:31-Dec-2021 Instruction Type:Provider Instructions for Treatment How to Access Health Informa tion Online using Patient Portal and [employer] Apps Indication:Impaired fasting glucose Start:31-Dec-2021 Instruction Type:Patient Edu cation [facility] Work Phone: instructions* Name Dates Details Patient Instructions Indication:BMI 25.0-25.9,adult Start:31-Dec-2021 Instruction Type:Provider Instructions for Treatment How to Access Health Informa tion Online using Patient Portal and [employer] Apps Indication:BMI 25.0-25.9,adult Start:31-Dec-2021 Instruction Type:Patient Edu cation Patient Instructions Indication:Impaired fasting glucose Start:31-Dec-2021 Instruction Type:Provider Instructions for Treatment How to Access Health Informa tion Online using Patient Portal and [employer] Apps Indication:Impaired fasting glucose Start:31-Dec-2021 Instruction Type:Patient Edu cation [facility]; [facility] Work Phone: instructions* Name Dates Details Patient Instructions Indication:Nonsmoker Start:19-Jun-2022 Instruction Type:Provider Instructions for Treatment How to Access Health Informa tion Online using Patient Portal and [employer] Apps Indication:Nonsmoker Start:19-Jun-2022 Instruction Type:Patient Education Patient Instructions Indication:BMI 25.0-25.9,adult Start:31-Dec-2021 Instruction Type:Provider Instructions for Treatment How to Access Health Informa tion Online using Patient Portal and [employer] Apps Indication:BMI 25.0-25.9,adult Start:31-Dec-2021 Instruction Type:Patient Education Patient Instructions Indication:Impaired fasting glucose Start:31-Dec-2021 Instruction Type:Provider Instructions for Treatment How to Access Health Informa tion Online using Patient Portal and [employer] Apps Indication:Impaired fasting glucose Start:31-Dec-2021 Instruction Type:Patient Education [facility]; [facility] Work Phone: instructions* Name Dates Details Patient Instructions Indication:Nonsmoker Start:19-Jun-2022 Instruction Type:Provider Instructions for Treatment How to Access Health Informa tion Online using Patient Portal and [employer] Apps Indication:Nonsmoker Start:19-Jun-2022 Instruction Type:Patient Education Patient Instructions Indication:BMI 25.0-25.9,adult Start:31-Dec-2021 Instruction Type:Provider Instructions for Treatment How to Access Health Informa tion Online using Patient Portal and [employer] Apps Indication:BMI 25.0-25.9,adult Start:31-Dec-2021 Instruction Type:Patient Education Patient Instructions Indication:Impaired fasting glucose Start:31-Dec-2021 Instruction Type:Provider Instructions for Treatment How to Access Health Informa tion Online using Patient Portal and [employer] Apps Indication:Impaired fasting glucose Start:31-Dec-2021 Instruction Type:Patient Education [facility]; [facility] Work Phone: instructions* Name Dates Details Patient Instructions Indication:Nonsmoker Start:19-Jun-2022 Instruction Type:Provider Instructions for Treatment How to Access Health Informa tion Online using Patient Portal and [employer] Apps Indication:Nonsmoker Start:19-Jun-2022 Instruction Type:Patient Education Patient Instructions Indication:BMI 25.0-25.9,adult Start:31-Dec-2021 Instruction Type:Provider Instructions for Treatment How to Access Health Informa tion Online using Patient Portal and [employer] Apps Indication:BMI 25.0-25.9,adult Start:31-Dec-2021 Instruction Type:Patient Education Patient Instructions Indication:Impaired fasting glucose Start:31-Dec-2021 Instruction Type:Provider Instructions for Treatment How to Access Health Informa tion Online using Patient Portal and [employer] Apps Indication:Impaired fasting glucose Start:31-Dec-2021 Instruction Type:Patient Education [facility]; [facility] Work Phone: instructions* Name Dates Details Patient Instructions Indication:Nonsmoker Start:19-Jun-2022 Instruction Type:Provider Instructions for Treatment How to Access Health Informa tion Online using Patient Portal and [employer] Apps Indication:Nonsmoker Start:19-Jun-2022 Instruction Type:Patient Education Patient Instructions Indication:BMI 25.0-25.9,adult Start:31-Dec-2021 Instruction Type:Provider Instructions for Treatment How to Access Health Informa tion Online using Patient Portal and [employer] Apps Indication:BMI 25.0-25.9,adult Start:31-Dec-2021 Instruction Type:Patient Education Patient Instructions Indication:Impaired fasting glucose Start:31-Dec-2021 Instruction Type:Provider Instructions for Treatment How to Access Health Informa tion Online using Patient Portal and [employer] Apps Indication:Impaired fasting glucose Start:31-Dec-2021 Instruction Type:Patient Education [facility]; [facility] Work Phone: instructions* Name Dates Details Patient Instructions Indication:Nonsmoker Start:19-Jun-2022 Instruction Type:Provider Instructions for Treatment How to Access Health Informa tion Online using Patient Portal and [employer] Apps Indication:Nonsmoker Start:19-Jun-2022 Instruction Type:Patient Education Patient Instructions Indication:BMI 25.0-25.9,adult Start:31-Dec-2021 Instruction Type:Provider Instructions for Treatment How to Access Health Informa tion Online using Patient Portal and [employer] Apps Indication:BMI 25.0-25.9,adult Start:31-Dec-2021 Instruction Type:Patient Education Patient Instructions Indication:Impaired fasting glucose Start:31-Dec-2021 Instruction Type:Provider Instructions for Treatment How to Access Health Informa tion Online using Patient Portal and [employer] Apps Indication:Impaired fasting glucose Start:31-Dec-2021 Instruction Type:Patient Education [facility]; [facility] Work Phone: instructions* Name Dates Details Patient Instructions Indication:Nonsmoker Start:19-Jun-2022 Instruction Type:Provider Instructions for Treatment How to Access Health Informa tion Online using Patient Portal and [employer] Apps Indication:Nonsmoker Start:19-Jun-2022 Instruction Type:Patient Education Patient Instructions Indication:BMI 25.0-25.9,adult Start:31-Dec-2021 Instruction Type:Provider Instructions for Treatment How to Access Health Informa tion Online using Patient Portal and [employer] Apps Indication:BMI 25.0-25.9,adult Start:31-Dec-2021 Instruction Type:Patient Education Patient Instructions Indication:Impaired fasting glucose Start:31-Dec-2021 Instruction Type:Provider Instructions for Treatment How to Access Health Informa tion Online using Patient Portal and [employer] Apps Indication:Impaired fasting glucose Start:31-Dec-2021 Instruction Type:Patient Education [facility]; [facility] Work Phone: Instructions* Name Dates Details How to Access Health Informa tion Online using Patient Portal and [employer] Apps Indication:BMI 25.0-25.9,adult Start:24-Dec-2022 Instruction Type:Patient Education Patient Instructions Indication:BMI 25.0-25.9,adult Start:24-Dec-2022 Instruction Type:Provider Instructions for Treatment Patient Instructions Indication:Nonsmoker Start:19-Jun-2022 Instruction Type:Provider Instructions for Treatment How to Access Health Informa tion Online using Patient Portal and [employer] Apps Indication:Nonsmoker Start:19-Jun-2022 Instruction Type:Patient Education Patient Instructions Indication:BMI 25.0-25.9,adult Start:31-Dec-2021 Instruction Type:Provider Instructions for Treatment How to Access Health Informa tion Online using Patient Portal and [employer] Apps Indication:BMI 25.0-25.9,adult Start:31-Dec-2021 Instruction Type:Patient Education Patient Instructions Indication:Impaired fasting glucose Start:31-Dec-2021 Instruction Type:Provider Instructions for Treatment How to Access Health Informa tion Online using Patient Portal and [employer] Apps Indication:Impaired fasting glucose Start:31-Dec-2021 Instruction Type:Patient Education [facility]; [facility] Work Phone: Summary Purpose Family History Unknown Family Member Name Dates Details Father Comments:Prostate Cancer, Di abetes, Afib Status:Active Mother Comments:Parkinson's, HTN, C holesterol Status:Active Unknown Family Member Name Dates Details Father Comments:Prostate Cancer, Di abetes, Afib Status:Active Mother Comments:Parkinson's, HTN, C holesterol Status:Active Unknown Family Member Name Dates Details Father Comments:Prostate Cancer, Di abetes, Afib Status:Active Mother Comments:Parkinson's, HTN, C holesterol Status:Active Unknown Family Member Name Dates Details Father Comments:Prostate Cancer, Di abetes, Afib Status:Active Mother Comments:Parkinson's, HTN, C holesterol Status:Active Unknown Family Member Name Dates Details Father Comments:Prostate Cancer, Di abetes, Afib Status:Active Mother Comments:Parkinson's, HTN, C holesterol Status:Active Unknown Family Member Name Dates Details Father Comments:Prostate Cancer, Di abetes, Afib Status:Active Mother Comments:Parkinson's, HTN, C holesterol Status:Active Unknown Family Member Name Dates Details Father Comments:Prostate Cancer, Di abetes, Afib Status:Active Mother Comments:Parkinson's, HTN, C holesterol Status:Active Unknown Family Member Name Dates Details Father Comments:Prostate Cancer, Di abetes, Afib Status:Active Mother Comments:Parkinson's, HTN, C holesterol Status:Active Unknown Family Member Name Dates Details Father Comments:Prostate Cancer, Di abetes, Afib Status:Active Mother Comments:Parkinson's, HTN, C holesterol Status:Active Unknown Family Member Name Dates Details Father Comments:Prostate Cancer, Di abetes, Afib Status:Active Mother Comments:Parkinson's, HTN, C holesterol Status:Active Unknown Family Member Name Dates Details Father Comments:Prostate Cancer, Di abetes, Afib Status:Active Mother Comments:Parkinson's, HTN, C holesterol Status:Active Unknown Family Member Name Dates Details Father Comments:Prostate Cancer, Di abetes, Afib Status:Active Mother Comments:Parkinson's, HTN, C holesterol Status:Active Advance Directives No Advanced Directives Records FoundNo Advanced Directives Records Found Additional Source Comments Source Comments (unrecognize d section and content) In the event this informatio n is protected by the Federal Confidentiality of Alcohol and Drug Abuse Patient Records regulations: The Federal rules restrict any use of the information to criminally investigate or prosecute any alcohol or drug abuse patient.[facility] the event this information is protected by the Federal Confidentiality of Alcohol and Drug Abuse Patient Records regulations: The Federal rules restrict any use of the information to criminally investigate or prosecute any alcohol or drug abuse patient.[facility] Care Teams (unrecognized sec tion and content) Insole Coverer Relationship Specialty Start Date End Date Ganesh Zurita MD PCP - General Family Practice 06/23/13 Reason for Visit (unrecogniz ed section and content) INFORMATION SOURCE (unrecogn ized section and content) DATE CREATED AUTHOR AUTHOR'S ORGANIZ ATION 06/21/2022 [facility] [employer] FOR RECORDS PERTAINING TO PATIENTS WHO ARE OR HAVE BEEN ENROLLED IN A CHEMICAL DEPENDENCY/SUBSTANCEABUSE PROGRAM, SOME INFORMATION MAY BE OMITTED. This clinical summary was aggregated from multiple sources. Caution should be exercised in using it in the provision of clinical care. This summary normalizes information from multiple sources, and as a consequence, information in this document may materially change the coding, format and clinical context of patient data. In addition, data may be omitted in some cases. CLINICAL DECISIONS SHOULD BE BASED ON THE PRIMARY CLINICAL RECORDS. [employer] provides no warranty or guarantee of the accuracy or completeness of information in this document.
== END | disposition home or self-care (01) ==
LOC: CVS 10:00
PROVIDERS: PCP Nurse Practitioner Family; Referring Provider Nurse Practitioner Family; Visit Provider Nurse Practitioner Family
DX: M79.605 Pain in left leg (principal)
CPT/HCPCS: 93971

== ENCOUNTER 2023-05-20 15:00 | Outpatient (RCR) | payer MEDICARE, BC, SELFPAY ==
--- NOTE | 2023-05-05 18:01 | HP.PTEVAL ---
Patient's Visit Information Visit Information Visit Information: VIOLETTE GUERRERO is a 73 year old F referred to Physical Therapy by ANNETTE Rodríguez with a diagnosis of TROCHANTERIC BURSITIS OF LEFT HIP. Date of Evaluation: 05/05/23 Physical Therapist: Dennis Carter, PT, Cert MDT, OCS Visit Plan Frequency: 2x /Week Duration: 4 Weeks Plan: PT INTERVENTIONS STRENGTHENING LEFT LEG ( GLUT MEDIUS) ,FUNCTIONAL STRENGTHENING ,CORE STRENGTHENING, STICK ROLL AND MODALITIES NEEDED Subjective Subjective: This 73 female presents to physical therapy with left hip bursitis . This patient has had pain 2 months without etiology reason. [facility] provided medication with bump in lower leg keflex 10 days and recommended PT . No imaging. Patient PA thought buritis . May return to DR for lump in lower leg. Patient lumbar fusion thoracic and lumbar as teenager. Denies paresthesia/tingling. Bowel/bladder-. Patient is sleeping okay. Location pain lateral hip pain described ache. Aggravating factors stairs ,walking ,carrying somethings. Alleviating rest ,sitting. Patient condition QOL and function walking /ADLS SOCIAL: VOCATION: retired Pain Left Hip: Pain Intensity (Out of 10): 5 Pain Intensity Range: 10 Comment: lateral Objective Objective: POSTURE: pelvis asymmetries ,scoliosis PALPATION: mild tender greater trochanteric and I T BAND GAIT: patient ambulates with slight antalgic gait SLS: Left SLS drops unable to stay level PROM: hip WNL no pain MMT: ( peak force ) quads 26.8 ,hamstrings 27.8 ,hip flexion 20.1 , hip abduction 19.1 FLEXABILITY : WNL I TBAND ,hamstring and piriformis Special Tests L/S Slump test left side: Negative L/S Slump test right side: Negative L/S Left Straight Leg Raise: Negative L/S Right Straight Leg Raise: Negative L Hip Scour: Negative L Hip Quadrant - Intraarticular Pathology: Negative L Hip JAYNE - Intraarticular Pathology: Negative L Hip FADDIR - Labrum: Negative L Hip Impingement Provocation - Labrum: Negative L Hip Trendelenberg - Glut Medius: Negative Balance/Special Test Scores Lower Extremity Functional Score: 35 Goals Goal 1:: Patient to be I with HEP Goal Time Frame: 4-6 Weeks Goal 2:: Patient to demonstrate 60% improvement with increase function and less pain. Goal Time Frame: 4-6 Weeks Goal 3:: Patient to normalize gait with less pain Goal Time Frame: 4-6 Weeks Goal 4:: Patient improve peak strength glut medius by 10 # strength to improve gait and function Goal Time Frame: 4-6 Weeks Goal 5:: Patient to improve back oswestry score by 5-10 points to improve QOL and gait Goal Time Frame: 4-6 Weeks Rehabilitation Potential Physical Therapy Diagnosis: This patient has weakness of left hip glut medius affects walking and stairs with h/o scoliosis and back surgery during a teenager thus benefit from skilled PT Rehabilitation Potential: Good Anticipated Interventions Patient/Client Instruction: Educate patient on: Condition and Plan of Care For the Purpose of:: To decrease pain, To increase ROM, To improve muscle performance and motor function, To improve ability to perform ADL's, To increase tolerance to activity/condition/position, To improve ability of physical actions for home/community/work/leisure, To improve health of tissue, To decrease soft tissue restriction, To increase flexibility/ROM, To improve endurance and To reduce risk of recurrence Therapeutic Exercise to Include: Strength training, Balance training and Dynamic Lumbar Stabilization For the Purpose of:: To improve muscle performance and motor function, To improve ability to perform ADL's, To increase tolerance to activity/condition/position, To improve ability of physical actions for home/community/work/leisure, To improve health of tissue, To decrease soft tissue restriction, To increase flexibility/ROM, To improve endurance and To improve balance Manual Therapy Techniques to Include: Functional dry needling Comment: STTICK For the Purpose of:: To decrease pain, To increase ROM, To improve health of tissue and To decrease soft tissue restriction TENS: Yes IF ES: Yes Cryotherapy (ice pack, ice massage): Yes Thermo therapy (hot pack): Yes Ultrasound (thermal/non thermal): Yes For the Purpose of:: To decrease pain, To improve nutrient delivery to tissue, To increase oxygenation perfusion, To improve health of tissue and To decrease soft tissue restriction Text: Thank you for the opportunity to evaluate your patient. For Medicare and Medicare HMO plans, please review the plan of care and approve it. It will need to be FAXED BACK to us at [phone] for Medicare purposes. For Medicare only, by signing this I certify the plan of care. Please let me know if there are questions or concerns regarding this plan of care. Physician Signature: Date:
--- NOTE | 2023-06-18 10:49 | HP.PT.NRP ---
Patient Information Patient Information: VIOLETTE GUERRERO was seen in my office for initial evaluation on 05/05/23. The following Plan of Care was established for this patient: POC Established Initial Frequency: 2x /Week Initial Duration: 4 Weeks Anticipated Interventions Patient/Client Instruction: Educate patient on: Condition and Plan of Care For the Purpose of:: To decrease pain, To increase ROM, To improve muscle performance and motor function, To improve ability to perform ADL's, To increase tolerance to activity/condition/position, To improve ability of physical actions for home/community/work/leisure, To improve health of tissue, To decrease soft tissue restriction, To increase flexibility/ROM, To improve endurance and To reduce risk of recurrence Therapeutic Exercise to Include: Strength training, Balance training and Dynamic Lumbar Stabilization For the Purpose of:: To improve muscle performance and motor function, To improve ability to perform ADL's, To increase tolerance to activity/condition/position, To improve ability of physical actions for home/community/work/leisure, To improve health of tissue, To decrease soft tissue restriction, To increase flexibility/ROM, To improve endurance and To improve balance Manual Therapy Techniques to Include: Functional dry needling Comment: TICK For the Purpose of:: To decrease pain, To increase ROM, To improve health of tissue and To decrease soft tissue restriction TENS: Yes IF ES: Yes Cryotherapy (ice pack, ice massage): Yes Thermo therapy (hot pack): Yes Ultrasound (thermal/non thermal): Yes For the Purpose of:: To decrease pain, To improve nutrient delivery to tissue, To increase oxygenation perfusion, To improve health of tissue and To decrease soft tissue restriction Last Seen Last Seen: This patient was last seen in our office . Pertinent comments regarding their Physical therapy will appear below: Patient was seen for PT for bursitis of hip for modalities ,stretching /manual tech and strengthening deborah is d/c At this point I will be discontinuing this patient from physical therapy. I would be happy to see this patient again in the future if found appropriate by the physician. Thank you! eDnnis Carter, PT, Cert MDT, OCS Balance/Gait/Functional tests Balance/Special Test Scores Lower Extremity Functional Score: 35
== END 2023-05-20 19:00 | disposition home or self-care (01) ==
LOC: PT 15:00
PROVIDERS: PCP Nurse Practitioner Family; Referring Provider Physician Assistant Surgical; Visit Provider Physician Assistant Surgical
DX: M70.62 Trochanteric bursitis, left hip (principal)
CPT/HCPCS: 97110; 97162

== ENCOUNTER → 2023-06-26 | Outpatient (CLI) | payer MEDICARE, BC, SELFPAY ==
[2023-06-26 10:45] LABS: Absolute Lymphocyte Count 1.07 X10^3/uL (0.83-4.51); Absolute Neutrophil Count 3.2 X10^3/uL (2.0-7.7); Basophil# 0.04 X10^3/uL; Basophil% 0.8 % (0-1); Eosinophil# 0.32 X10^3/uL; Eosinophils% 6.1 % (0-5); Hematocrit 35.7 % (37-47); Hemoglobin 11.3 g/dL (12.0-15.0); Lymphocyte # 1.07 X10^3/ul (0.83-4.51); Lymphocyte % 20.5 % (19-41); Mean Corp Hgb Conc 31.7 g/dL (32-36); Mean Corpuscular Hgb 31.5 pg (27.0-32.0); Mean Corpuscular Volume 99.4 fL (81-99); Mean Platelet Vol. 10.7 fl (6.2-12.0); Monocyte# 0.62 X10^3/uL; Monocyte% 11.9 % (0-10); NRBC Flagged by Analyzer 0 % (0-5); Neutrophil # 3.15 X10^3/uL (2.7-7.7); Neutrophil % 60.3 % (47-70); Platelet Count 202 K/mm3 (150-450); RBC Distribution Width CV 13.5 % (11.6-14.6); RBC Distribution Width SD 48.5 fl (35.1-43.9); Red Blood Count 3.59 M/mm3 (4.2-5.4); White Blood Count 5.2 K/mm3 (4.4-11.0)
[2023-06-26 10:51] LABS: Vitamin D,25 Hydroxy 57.1 ng/mL
[2023-06-26 10:59] LABS: AST(SGOT) 26 U/L (15-37); Alanine Aminotransfer ALT/SGPT 35 U/L (13-56); Albumin, Serum 3.6 g/dL (3.2-5.0); Alkaline Phosphatase 68 U/L (45-117); Anion Gap 5 (5-15); BUN 24 mg/dL (7-18); Calcium,Total 8.9 mg/dL (8.5-10.1); Chloride 109 mmol/L (98-107); Cholesterol 223 mg/dL (200); EST Glomerular Filtration Rate 75 mL/min (>60); Est Glom Filt Rate - Afr Amer 90 mL/min (>60); Globulin 3.6 g/dL (2.2-4.2); Glucose 138 mg/dL (74-106); High Density Lipoprotein 64 mg/dL; Potassium 4.1 mmol/L (3.5-5.1); Protein, Total 7.2 g/dL (6.4-8.2); Sodium Level 141 mmol/L (136-145); Triglycerides 234 mg/dL; Very Low Density Lipoprotein 47 mg/dL (5-40)
[2023-06-26 11:35] LABS: Hemoglobin A1c 5.4 % (3.8-5.6)
== END | disposition home or self-care (01) ==
LOC: MTLAB 07:21
PROVIDERS: PCP Nurse Practitioner Family; Referring Provider Nurse Practitioner Family; Visit Provider Nurse Practitioner Family
DX: I10 Essential (primary) hypertension (principal); E55.9 Vitamin D deficiency, unspecified; E78.5 Hyperlipidemia, unspecified; R73.01 Impaired fasting glucose
CPT/HCPCS: 36415; 80053; 80061; 82306; 83036; 85025

== ENCOUNTER → 2023-07-18 | Outpatient (CLI) | payer MEDICARE, BC, SELFPAY ==
--- NOTE | 2023-07-18 13:56 | BI_ITS ---
MAMMOGRAPHY - BILATERAL SCREENING REASON FOR EXAM: Female, 73 years old. Routine annual screening examination. PERTINENT HISTORY: Non-contributory. TECHNIQUE: Digital bilateral breast demario (3D mammographic acquisition) in the CC and MLO projections. 2-D mediolateral oblique (MLO) and craniocaudad (CC) views of both breasts were obtained. CAD: Full Field Digital Mammography with Computer Added Detection was performed. COMPARISON: Comparison is made with prior study dated July 09, 2022 and May 07, 2021. FINDINGS: Breast Composition: The breasts are heterogeneously dense, which may obscure small masses. There are no dominant masses or suspicious calcifications. No other significant abnormalities are identified. There has been no significant change since the prior study. BI/SCRN MAMM (CAD)W/DEMARIO BILAT IMPRESSION: Stable bilateral screening mammogram. Yearly follow-up mammogram recommended. (A) ASSESSMENT CATEGORY: BIRADS Category 1: Negative. A letter regarding these results will be sent to the patient by the facility within 30 days. Approximately 10% of breast cancers are not detected by mammography. A normal mammogram should not delay biopsy of a clinically suspicious abnormality. [id number] Electronically Signed: Tripp Turpin MD at 8:43 EDT ,
== END | disposition home or self-care (01) ==
LOC: OPBI 13:55
PROVIDERS: PCP Nurse Practitioner Family; Referring Provider Nurse Practitioner Family; Visit Provider Nurse Practitioner Family
DX: Z12.31 Encounter for screening mammogram for malignant neoplasm of breast (principal)
CPT/HCPCS: 77063; 77067

== ENCOUNTER → 2023-11-10 | Outpatient (CLI) | payer MEDICARE, BC, SELFPAY ==
[2023-11-10 10:54] LABS: Vitamin B12 496 pg/mL (211-911)
[2023-11-10 10:55] LABS: Hemoglobin A1c 5.7 % (3.8-5.6)
[2023-11-10 10:58] LABS: Cholesterol 200 mg/dL (200); High Density Lipoprotein 54 mg/dL; Triglycerides 220 mg/dL; Very Low Density Lipoprotein 44 mg/dL (5-40)
== END | disposition home or self-care (01) ==
LOC: MTLAB 07:47
PROVIDERS: PCP Nurse Practitioner Family; Referring Provider Nurse Practitioner Family; Visit Provider Nurse Practitioner Family
DX: R73.01 Impaired fasting glucose (principal); E78.5 Hyperlipidemia, unspecified; M85.80 Other specified disorders of bone density and structure, unspecified site
CPT/HCPCS: 36415; 80061; 82607; 82746; 83036

== ENCOUNTER → 2024-06-28 | Outpatient (CLI) | payer MEDICARE, BC, SELFPAY ==
[2024-06-28 11:19] LABS: Absolute Neutrophil Count 3.7 X10^3/uL (2.0-7.7); Basophil# 0.05 X10^3/uL; Basophil% 0.9 % (0-1); Eosinophil# 0.22 X10^3/uL; Eosinophils% 3.8 % (0-5); Lymphocyte % 22.2 % (19-41); Mean Corp Hgb Conc 32.4 g/dL (32-36); Mean Corpuscular Hgb 31.2 pg (27.0-32.0); Mean Corpuscular Volume 96.1 fL (81-99); Mean Platelet Vol. 10.2 fl (6.2-12.0); Monocyte% 10.3 % (0-10); NRBC Flagged by Analyzer 0 % (0-5); Neutrophil # 3.66 X10^3/uL (2.7-7.7); Neutrophil % 62.5 % (47-70); Platelet Count 193 K/mm3 (150-450); RBC Distribution Width CV 13.7 % (11.6-14.6); RBC Distribution Width SD 48.4 fl (35.1-43.9); Red Blood Count 3.85 M/mm3 (4.2-5.4); White Blood Count 5.9 K/mm3 (4.4-11.0)
[2024-06-28 11:20] LABS: Hemoglobin A1c 5.8 % (<=5.6)
[2024-06-28 13:49] LABS: ALB/GLOB Ratio 1.5 RATIO (0.9-2.4); AST(SGOT) 23 U/L (<=31); Alanine Aminotransfer ALT/SGPT 28 U/L (<=34); Albumin, Serum 4.2 g/dL (3.4-4.8); Alkaline Phosphatase 58 U/L (35-104); Anion Gap 11 (5-15); BUN 22 mg/dL (4-19); BUN/Creat Ratio 32.5 RATIO (10-20); Calcium,Total 9.6 mg/dL (7.6-11.0); Carbon Dioxide 23.4 mmol/L (21.0-32.0); Chloride 106 mmol/L (98-108); Cholesterol 264 mg/dL (<=200); Creatinine, Serum 0.68 mg/dL (0.70-1.20); EST Glomerular Filtration Rate 91 (>60); Globulin 2.7 g/dL (2.2-4.2); Glucose 113 mg/dL (70-99); High Density Lipoprotein 73 mg/dL; Low Density Lipoprotein Calc. 169 mg/dL; Potassium 4.1 mmol/L (3.3-5.1); Protein, Total 6.9 g/dL (5.9-8.4); Sodium Level 140 mmol/L (133-145); Total Bilirubin 0.36 mg/dL (0.00-1.30); Triglycerides 114 mg/dL; Very Low Density Lipoprotein 23 mg/dL (5-40); Vitamin D,25 Hydroxy 51.7 ng/mL (30-100); cholesterol:hdl ratio screen 3.64
== END | disposition home or self-care (01) ==
LOC: MTLAB 07:29
PROVIDERS: PCP Nurse Practitioner Family; Referring Provider Nurse Practitioner Family; Visit Provider Nurse Practitioner Family
DX: I10 Essential (primary) hypertension (principal); E78.5 Hyperlipidemia, unspecified; D64.9 Anemia, unspecified; E55.9 Vitamin D deficiency, unspecified; R73.03 Prediabetes
CPT/HCPCS: 36415; 80053; 80061; 82306; 83036; 85025

== ENCOUNTER → 2024-07-13 | Outpatient (CLI) | payer MEDICARE, BC, SELFPAY ==
--- NOTE | 2024-07-13 13:57 | BI_ITS ---
EXAM: SCRN MAMM (CAD)W/DEMARIO BILAT DATE: 07/13/2024 CLINICAL HISTORY: F, Age 74 y/o , SCREENING BREAST CANCER RISK ASSESSMENT: Not reported TECHNIQUE: Bilateral screening digital breast tomosynthesis with 2D and 3D images. Computer aided detection. COMPARISON: None available FINDINGS: TISSUE DENSITY: The breast tissue is heterogenously dense, which may obscure small masses. Bilateral Breast Mammographic Findings: No suspicious masses, calcifications or other abnormalities are identified. BI/SCRN MAMM (CAD)W/DEMARIO BILAT IMPRESSION: OVERALL FINAL ASSESSMENT: BIRADS 1 NEGATIVE RECOMMENDATION: Routine annual follow-up in 1 Year A letter with findings and recommendations will be mailed to the patient. Reading Location: [id number]
--- NOTE | 2024-07-13 14:01 | BD_ITS ---
PROCEDURE: DEXA BONE DENSITY STUDY 07/13/2024 REASON FOR EXAM: F, age 74 y/o . Postmenopausal. TECHNIQUE: DXA scan of sites with data reported below. REFERENCE LINKS: [facility] Adult Positions COMPARISON: Prior study dated July 09, 2022. FINDINGS: BMD and T-SCORES Lumbar spine: 0.958 g/cm2, T-score -0.9 Levels: L1 through L4 Change from prior: Loss of 0.9%. Left femoral neck: 0.620 g/cm2, T-score -2.1 Femoral neck comparison data not recommended for monitoring change. Left total hip: 0.891 g/cm2, T-score -0.4 Change from prior: Improvement by 1.9%. Right femoral neck: 0.572 g/cm2, T-score -2.5 Femoral neck comparison data not recommended for monitoring change. Right total hip: 0.814 g/cm2, T-score -1.0 Change from prior: Loss of 3.2%. The World Health Organization has defined the following categories based on bone density: Normal bone density: T-score equal to or greater than -1.0 Osteopenia: T-score between -1.0 and -2.5 Osteoporosis: T-score equal to or less than -2.5 The patient does meet the pharmacological treatment recommendations for prevention of osteoporosis. BD/Dexa Bone Density Study IMPRESSION: OSTEOPENIA. Recommend follow-up as clinically warranted. Reading Location: [place] [id number]
== END | disposition home or self-care (01) ==
LOC: OPBD 13:55
PROVIDERS: PCP Nurse Practitioner Family; Referring Provider Nurse Practitioner Family; Visit Provider Nurse Practitioner Family
DX: Z12.31 Encounter for screening mammogram for malignant neoplasm of breast (principal); Z78.0 Asymptomatic menopausal state; M85.80 Other specified disorders of bone density and structure, unspecified site
CPT/HCPCS: 77063; 77067; 77080

== ENCOUNTER → 2025-01-10 | Outpatient (CLI) | payer MEDICARE, BC, SELFPAY ==
--- OUTSIDE RECORDS SUMMARY | 2025-01-10 07:59 | XMS RPT_ITS | CCD ---
Author Organization [facility] Care Team Providers Care Commanding Officer Motorized [employer] Name Role Phone Srinvias CUPROUS CHLORIDE HELPER, Sharmin N Unavailable Unavailab le Cy CUPROUS CHLORIDE HELPERVelma N Unavailable [phone] Srinivas CUPROUS CHLORIDE HELPER, Sharmin N Unavailable Unavailab le Srinivas DAMIAN, Sharmin N Unavailable Unavailab Ganesh White MD Primary Care Provider Jermeias BROWNE Francheska Unavailable Jeremias HOLLIE, Francheska Unavailable Donaldo SKELTONN, Cha Unavailable Unavailable Unavailable Unavailable Unavailable Unavailable Isbaelle Martin MA Unavailable Unavailable Darvin Frazier MD Unavailable Francheska Mcdowell CNP Attending Unavailable Francheska Mcdowell CNP Consulting Unavailable Jeremias, INDUSTRIAL MACHINE ASSEMBLER-C Francheska Primary Care Provider Jeremias, INDUSTRIAL MACHINE ASSEMBLER-C Francheska Referring Provider ANNETTE Hearn Attending Provider Dr. Rustam Thapa Attending Provider Dr. Selvin Riggs Attending Provider Jeremias INDUSTRIAL MACHINE ASSEMBLER-C, Francheska Primary Care Provider Jeremias INDUSTRIAL MACHINE ASSEMBLER-CMarnieyn Attending Provider Jeremias INDUSTRIAL MACHINE ASSEMBLER-C, Francheska Referring Provider Williams Hearn Attending Provider [phone] Jeremias, Francheska Referring Unavailable Jeremias, Francheska Primary Care Unavailable Jeremias, Francheska Attending Unavailable Jeremias, Francheska Referring Unavailable Jeremias, Francheska Primary Care Unavailable Jeremias, Francheska Attending Unavailable Jeremias, Francheska Referring Unavailable Jeremias, Francheska Primary Care Unavailable Francheska Mcdowell Attending Unavailable Francheska Mcdowell Referring Unavailable Francheska Mcdowell Primary Care Unavailable Williams Nieto Attending Unavailable Medications Current Medications Medication Drug Class(es) Dates Sig (Normalized) Sig (Original) ascorbic acid 1000 mg oral tablet (20 sources) Vitamin C Start: 04-25-2023 take 1 g by mouth every six hours Ascorbic Acid (Vitamin C) 1,000 mg tablet Active 1 g PO EVERY 6 HOURS April 25, 2023 1:00am Start: 04-25-2023 take 1 g by mouth every six ho urs Ascorbic Acid (Vitamin C) Active 1 GM PO EVERY 6 HOURS April 25, 2023 1:00am Start: 08-16-2020 take 1 tablet by mouth once da delfino ascorbic acid, time released (VITAMIN C) 500 mg TbER Take 1 tablet by mouth once daily. 0 08/16/2020 Active take 1 mg by mouth once daily CV S Vitamin C 1000 MG Oral Tablet daily (1000 MG) Active Comment on above: [facility] 81 mg delayed release oral tablet (20 sources) Platelet Aggregation Inhibitor, Nonsteroidal Anti-inflammatory Drug Start: 04-25-2023 take 1 tablet by mouth once daily Aspirin 81 mg tablet,delayed release (DR/EC) Active 81 mg PO DAILY April 25, 2023 1:00am Start: 07-16-2016 ASPIR-81 TBE as directed ASPIRIN [facility] [id number] Sharmin Espino LPN take 1 mg by mouth e very other day Aspirin 81 MG Oral Tablet every other day (81 MG) Active calcium carbonate 1500 mg oral tablet (2 sources) Start: 07-08-2024 take 1 tablet by mouth once daily Calcium Carbonate (Calcium 600) 600 mg calcium (1,500 mg) tablet Active 600 mg PO daily July 08, 2024 12:00am cholecalciferol 0.125 mg oral capsule (20 sources) Vitamin D Start: 04-25-2023 take 1 capsule by mouth once daily Cholecalciferol (Vitamin D3) 125 mcg (5,000 unit) capsule Active 125 ug PO DAILY April 25, 2023 1:00am Start: 02-16-2020 take 1 capsule by mo [facility] once daily Cholecalciferol, Vitamin D3, 125 mcg (5,000 unit) cap Take 1 capsule by mouth once daily. 0 02/16/2020 Active take 1 tablet by sonia th once daily Vitamin D3 250 MCG (18362 UT) Oral Tablet daily (250 MCG (82434 UT)) Active Comment on above: Take 1 capsule by mo [facility] once daily. ezetimibe 10 mg oral tablet (2 sources) Dietary Cholesterol Absorption Inhibitor Start: 2024 Ezetimibe 10 mg tablet Active mg PO July 08, 2024 12:00am hydroxychloroquine sulfate 200 mg oral tablet (20 sources) Antimalarial, Antirheumatic Agent Start: 2024 take 1 tablet by mouth every week Hydroxychloroquine 200 mg tablet Active 200 mg PO EVERY WEEK July 08, 2024 12:00am Start: 02-24-1969 take 1 tablet by sonia th every week hydrOXYchloroQUINE (PLAQUENIL) 200 mg tablet Take 1 tablet by mouth one time a week. 0 02/24/1969 Active Comment on above: Take 1 tablet by sonia one time a week. magnesium zinc 500-50 (2 sources) Start: 07-08-2024 magnesium zinc 500-50 Active PO daily July 08, 2024 12:00am Campti 8-Erl-Tzy-Fish Oil (Fish Oil) 60-90-500 mg capsule (2 sources) Start: 07-08-2024 Campti 4-Hcx-Fpz-Fish Oil (Fish Oil) 60-90-500 mg capsule Active 1 NMA PO daily July 08, 2024 12:00am pantoprazole 40 mg delayed release oral tablet (10 sources) Proton Pump Inhibitor Start: 04-25-2023 Pantoprazole 40 mg tablet,delayed release (DR/EC) Active mg PO April 25, 2023 1:00am Start: 04-25-2023 Pantoprazole A ctive MG PO April 25, 2023 1:00am Start: 12-24-2022 take 1 tablet by sonia th at bedtime Protonix 40 mg oral tablet, delayed release (enteric coated) 1 (one) tablet at bedtime for 90 days Quantity: 90 {Tablet} Refills: 3 Ordered: 24-Dec-2022 Francheska Mcdowell CNP Start : 24-Dec-2022 Active Start: 10-16-2022 take 1 tablet by sonia th once daily at bedtime Protonix 40 mg oral tablet, delayed release (enteric coated) 1 (one) tablet qhs for 0 days Quantity: 90 {Tablet} Refills: 0 Ordered: 16-Oct-2022 Donaldo CUPROUS CHLORIDE HELPERCha Haddad Start : 16-Oct-2022 Active take 1 mg by mouth o nce daily at bedtime Protonix 40 mg oral tablet, delayed release (enteric coated) qhs (40 mg) Active Completed/Discontinued Medications Medication Drug Class(es) Dates Sig (Normalized) Sig (Original) ASPIRIN TBEC (3 sources) Start: 07-16-2016 ASPIR-81 TBEC as directed ASPIRIN TBEC [id number] Sharmin Espino LPN ATORVASTATIN CALCIUM TABS (5 sources) HMG-CoA Reductase Inhibitor Start: 07-16-2016 LIPITOR TABS as directed ATORVASTATIN CALCIUM TABS [id number] Sharmin Espino LPN Start: 09-03-2013 End: 07-13-2021 ATORVASTATIN 20 mg tablet on ce daily. 0 09/03/2013 07/13/2021 Discontinued (Duplicate Entry) Comment on above: once daily. benzonatate 100 mg oral capsule (4 sources) Non-narcotic Antitussive Start: 07-17-19 End: 07-27-19 17 TESSALON PERLES 100 MG CAPS Take 1 capsule every 8 hours as needed BENZONATATE [id number] Williams BRYANT calcium (3 sources) Phosphate Binder, Calcium Start: 07-17-19 17 CALCIUM + D TABS as directed CALCIUM CITRATE-VITAMIN D TABS [id number] Sharmin Espino LPN CALCIUM CITRATE-VITAMIN D TABS (1 source) Start: 07-17-19 17 CALCIUM + D TABS as directed CALCIUM CITRATE-VITAMIN D TABS [id number] Sharmin Espino LPN cephalexin 500 mg oral capsule (18 sources) Cephalosporin Antibacterial Start: 04-25-19 24 End: 05-05-19 24 take 1 capsule by mouth every twelve hours Cephalexin 500 mg capsule Discontinued 500 mg PO Q12H 13 12April 25, 2023 1:00am May 04, 2023 1:00am May 05, 2023 12:05am Start: 01-23-2019 End: 02-01-2019 take 1 capsule by mouth every six hours Cephalexin (Keflex) 500 mg capsule Discontinued 500 mg PO EVERY 6 HOURS 20 09January 23, 2019 1:00am January 29, 2019 1:00am February 01, 2019 1:09am clotrimazole 10 mg oral lozenge (1 source) Azole Antifungal Start: 07-08-2024 End: 07-18-2024 Clotrimazole 10 mg jim Discontinued 10 mg MUCOUS MEM THREE TIMES A DAY 23 12July 08, 2024 12:00am July 17, 2024 12:00am July 18, 2024 12:06am fish oil (3 sources) Start: 07-16-2016 [facility] FISH OIL CPDR as directed OMEGA-3 FATTY ACIDS CPDR [id number] Sharmin Espino LPN LOSARTAN POTASSIUM-HCTZ TABS (4 sources) Thiazide Diuretic, Angiotensin 2 Receptor Michelle Start: 07-16-2016 LOSARTAN POTASSIUM-HCTZ TABS as directed LOSARTAN POTASSIUM-HCTZ TABS [id number] Sharmin Espino LPN losartan potassium 50 mg oral tablet (2 sources) Angiotensin 2 Receptor Michelle Start: 09-03-2013 End: 09-10-2021 LOSARTAN 50 mg tablet once daily. 0 09/03/2013 09/10/2021 Discontinued (Course of therapy completed) Comment on above: once daily. Magnesium (1 source) take 2 tablets by mouth once daily Magnesium 500 MG Oral Tablet 2 daily (500 MG) Active magnesium oxide 500 mg oral tablet (17 sources) take 2 tablets by mouth once daily Magnesium 500 MG Oral Tablet 2 daily (500 MG) Active melatonin 3 mg oral tablet (2 sources) Start: 02-24-1969 take 2 tablets by mouth once daily at bedtime melatonin 3 mg tablet Take 2 tablets by mouth daily at bedtime. 0 02/24/1969 Active Comment on above: Take 2 tablets by mo [facility] daily at bedtime. methylprednisoLONE 4 mg oral tablet (4 sources) Corticosteroid Start: 07-16-2016 End: 07-21-2016 MEDROL 4 MG TBPK Take as directed METHYLPREDNISOLONE [id number] Williams BRYANT Start: 07-16-2016 End: 07-21-2016 MEDROL 4 MG TBPK Take as dir ected METHYLPREDNISOLONE [id number] Williams BRYANT 24 hr metoprolol succinate 50 mg extended release oral tablet (20 sources) beta-Adrenergic Michelle Start: 04-22-2022 take 1 tablet by mouth once daily Toprol XL 50 mg oral Tablet, Extended Release 24 hr 1 (one) Tablet daily for 90 days Quantity: 90 {Tablet} Refills: 3 Ordered: 22-Apr-2022 Jeremias HOLLIEFrancheska Start : 22-Apr-2022 Active Comments: new dose Start: 01-23-2019 take 1 tablet by sonia th every twenty-four hours Metoprolol Succinate 50 mg tablet extended release 24 hr Active PO January 23, 2019 1:00am Start: 01-23-2019 Metoprolol Suc cinate Active PO January 23, 2019 1:00am Start: 07-16-2016 TOPROL XL XR24 H-TAB as directed METOPROLOL SUCCINATE [id number] Sharmin Espino LPN Start: 07-16-2016 TOPROL XL XR24 H-TAB as directed METOPROLOL SUCCINATE [id number] Sharmin Espino LPN Start: 08-25-2013 End: 07-13-2021 METOPROLOL SUCCINATE XL, CARO G ACTING, 50 mg 24 hr tablet once daily. 0 08/25/2013 Active Comment on above: once daily. Take 1 tablet by sonia th once daily. new dose MULTIPLE VITAMINS-MINERALS (3 sources) Start: 7 DAILY MULTIVITAMIN CAPS as directed MULTIPLE VITAMINS-MINERALS [id number] Sharmin Esipno LPN MULTIPLE VITAMINS-MINERALS (1 source) Start: 7 DAILY MULTIVITAMIN CAPS as directed MULTIPLE VITAMINS-MINERALS [id number] Sharmin Espino LPN multivitamin with folic acid (ONE DAILY MULTIVITAMIN) 400 mcg (2 sources) Start: 7 multivitamin with folic acid (ONE DAILY MULTIVITAMIN) 400 mcg Take by mouth. 0 10/03/2016 Active Comment on above: Take by mouth. Campti-3 & Campti-6 Fish Oil Oral Capsule (18 sources) Campti-3 & Campti- 6 Fish Oil Oral Capsule daily Active OMEGA-3 FATTY ACIDS CPDR (1 source) Start: 7 [facility] FISH OIL CPDR as directed OMEGA-3 FATTY ACIDS CPDR [id number] Sharmin Espino LPN quercetin 250 mg oral tablet (18 sources) take 2 tablets by mouth once daily Quercetin 250 MG Oral Tablet 2 daily (250 MG) Active rosuvastatin calcium 10 mg oral tablet (17 sources) HMG-CoA Reductase Inhibitor Start: 4 End: 5 take 1 tablet by mouth once daily Rosuvastatin 10 mg tablet Discontinued 10 mg PO DAILY April 25, 2023 1:00am July 08, 2024 2:06pm Start: 04-19-2022 End: 12-24-2022 take 1 tablet by mouth at bedtime rosuvastatin 10 mg oral tablet 1 (one) tablet at bedtime for 90 days Quantity: 90 {Tablet} Refills: 3 Ordered: 24-Dec-2022 Francheska Mcdowell CNP Start : 19-Apr-2022 End : 24-Dec-2022 Discontinued Selenium 200 MCG Oral Tablet (18 sources) take 1 ug by mouth once daily Selenium 200 MCG Oral Tablet daily (200 MCG) Active SELENIUM ORAL (2 sources) Start: 1 take 1 tablet by mouth once daily SELENIUM ORAL Take 1 tablet by mouth once daily. 0 08/16/2020 Active Comment on above: Take 1 tablet by sonia once daily. simvastatin 20 mg oral tablet (14 sources) HMG-CoA Reductase Inhibitor Start: 9 End: 4 Simvastatin 20 mg tablet Discontinued PO January 23, 2019 1:00am April 25, 2023 3:08pm Start: 10-03-2016 End: 04-25-2023 Simvastatin Discontinued PO January 23, 2019 1:00am April 25, 2023 3:08pm Comment on above: Take 1 tablet by sonia th once daily. sulfamethoxazole 800 mg / trimethoprim 160 mg oral tablet (20 sources) Dihydrofolate Reductase Inhibitor Antibacterial, Sulfonamide Antimicrobial Start: 01-24-20 19 End: 02-02-20 Sulfamethoxazole-Tr imethoprim (Bactrim Ds) 800-160 mg tablet Discontinued 1 {tbl} PO TWICE A DAY 14 January 24, 2019 1:25pm January 30, 2019 1:00am February 01, 2019 1:09am Zinc (1 source) take 1 mg by mouth once daily Zinc 50 MG Oral Tablet daily (50 MG) Active zinc gluconate 50 mg oral tablet (17 sources) take 1 mg by mouth once daily Zinc 50 MG Oral Tablet daily (50 MG) Active Problems Active Problems Problem Classification Problem Date Documented Date Episodic/Chronic Deficiency and other anemia (15 sources) Normocytic anemia; Translations: [Normocytic anemia] 07-05-2022 Episodic Comment on above: repeat labs.mild. as ymptomatic Disorders of lipid metabolism (20 sources) Hyperlipidemia; Translations: [Hyperlipidemia, unspecified] Onset: 7 07-13-2021 Chronic Comment on above: repeat lipidsFeb: chol 228, trig 145, LDL 125, HDL 74took simvastatin for years but switched to soltea - green tea extract about 4 months ago now on rosuvastatin as of 03/2022, we will get a repeat lipid profile and go from there.Feb 2021: chol 228, trig 145, LDL 125, HDL 74-simvastatin for years but switched herself to soltea green tea extract August 2021. then restarted statin. 01/04/22: chol 251, trig 212, HDL 63, LDL 146 rosuvastatin initiat ed 03/2022, took herself off about a week ago. wants to trial off for 3 months, which I advised against but we will recheck her labs in 3 mo and go from thereFeb 2021: chol 228, trig 145, LDL 125, HDL 7412/2021: chol 251, trig 212, HDL 63, LDL 146-simvastatin, switched herself to soltea green tea extract August 2021. restarted statin 04/18. Esophageal disorders (6 sources) Gastroesophageal reflux disease; Translations: [Gastro-esophageal reflux disease without esophagitis] 04-25-2023 Chronic Essential hypertension (20 sources) Benign hypertension; Translations: [Essential (primary) hypertension] Onset: 7 07-13-2021 Chronic Comment on above: decent today, on top rol every other day stay on medtoprol XL qd. asymptomatic bradycardia (BB related) Nutritional deficiencies (20 sources) Vitamin D deficiency; Translations: [Vitamin D deficiency, unspecified] Onset: 1 07-13-2021 Chronic Comment on above: continue same dose v it [id number] after supplementation Feb 2021 28.8, recent 47 on Life Screening Other bone disease and musculoskeletal deformities (20 sources) Osteopenia; Translations: [Other specified disorders of bone density and structure, unspecified site] Onset: 7 07-13-2021 Episodic Comment on above: stopped Ca+ due to s ize of pill but we discussed and she is going to start taking again. calcium and vitamin D supplementationBD 06/2022: osteopenia high fx risk Other circulatory disease (2 sources) Clearing throat - hawking; Translations: [Throat clearing] 12-24-2022 Episodic Comment on above: significant improvem entstarted on Protonix last visit to see if maybe GERD related Other connective tissue disease (6 sources) History of spinal fusion; Translations: [Arthrodesis status] 04-25-2023 Episodic Other connective tissue disease (6 sources) Trochanteric bursitis; Translations: [Trochanteric bursitis, left hip] 04-25-2023 Episodic Other connective tissue disease (3 sources) Trochanteric bursitis, left hip; Translations: [Enthesopathy of hip region] 04-25-2023 Episodic Other eye disorders (12 sources) Vitreous floaters; Translations: [Other vitreous opacities, unspecified eye] 02-18-2019 Chronic Other non-traumatic joint disorders (6 sources) Hip pain; Translations: [Pain in unspecified hip] 04-25-2023 Episodic Other nutritional; endocrine; and metabolic disorders (20 sources) Overweight in adulthood with body mass index of 25 or more but less than 30; Translations: [BMI 25.0-25.9,adult] 12-31-2021 Episodic Other screening for suspected conditions (not mental disorders or infectious disease) (20 sources) Patient encounter status; Translations: [Encounter for screening for cardiovascular disorders] Onset: 8 07-13-2021 Episodic Other skin disorders (2 sources) Inflammatory disease of mucous membrane; Translations: [Other skin changes] 07-09-2024 Episodic Other upper respiratory disease (16 sources) Hoarse; Translations: [Voice hoarseness] 06-19-2022 Episodic Phlebitis; thrombophlebitis and thromboembolism (9 sources) Left lower limb vein thrombophlebitis; Translations: [Phlebitis and thrombophlebitis of other deep vessels of left lower extremity] 04-25-2023 Episodic Residual codes; unclassified (20 sources) Obstructive sleep apnea syndrome; Translations: [Obstructive sleep apnea (adult) (pediatric)] Onset: 07-13-2021 Chronic Comment on above: CPAP x10 yrs, follow s with Dr. Jimenez. Tolerates well. yearly pulm f/uCPAP x10 yrs, follows with Dr. Jimenez. Tolerates well. Residual codes; unclassified (19 sources) Non-smoker; Translations: [Nonsmoker] 06-19-2022 Episodic Residual codes; unclassified (18 sources) Postmenopausal state; Translations: [Post-menopausal] 06-19-2022 Episodic Unclassified (20 sources) Past or Other Problems Problem Classification Problem [...] [Dizziness and giddiness] Onset: 08-02-2019 07-13-2021 Episodic Diabetes mellitus without complication (20 sources) Hyperglycemia; Translations: [Hyperglycemia, unspecified] Onset: 03-07-2021 Resolved: 12-24-2022 07-13-2021 Episodic Comment on above: lost 40# 2 yrs agoA1 c 5.5% Dec 2021 stablelost 40# 2 yrs agoA1c 5.5% Dec.7% 06/19/22 Immunizations and screening for infectious disease (2 sources) Exposure to communicable disease; Translations: [Contact with and (suspected) exposure to unspecified communicable disease] Onset: 08-16-2020 07-13-2021 Episodic Nonspecific chest pain (2 sources) Rib pain; Translations: [Pleurodynia] Onset: 10-31-2016 10-31-2016 Episodic Syncope (2 sources) Near syncope; Translations: [Syncope and collapse] Onset: 08-02-2019 07-13-2021 Episodic Unclassified (18 sources) 5 pregnancies 12-31-2021 Comment on above: 4 live births, 1 mis carriage Unclassified (4 sources) Unspecified Diagnosis 10-16-2022 NEGATED: Highlighted row has been ruled out!Residual codes; unclassified (1 source) Disease Episodic Results Test Name Value Interpretation Reference Range Facility Bone density reportOrdered B y: Tripp Turpin on 07-14-2024 Study report Skeletal system DXA [facility] Imaging Services [address] [place], [place] [address] Dexa Bone Density Study MR#: [id number] Acct: [id number] Name: MARGARET BRASWELL Rep #: [id number] : 1950 F 74 From: Patrick Turpin MD PCP: GOYO Cuello Status: REG C LI Study:Dexa Bone Density Study Date of Exam: 07/13/24 Exam# [id number] Ordering Dr: Shahid Mcdowell PROCEDURE: DEXA BONE DENSITY STUDY 07/13/2024 REASON FOR EXAM: F, age 74 y/o . Postmenopausal. TECHNIQUE: DXA scan of sites with data reported below. REFERENCE LINKS: ISCD Adult Positions COMPARISON: Prior study dated July 09, 2022. FINDINGS: BMD and T-SCORES Lumbar spine: 0.958 g/cm2, T-score -0.9 Levels: L1 through L4 Change from prior: Loss of 0.9%. Left femoral neck: 0.620 g/cm2, T-score -2.1 Femoral neck comparison data not recommended for monitoring change. Left total hip: 0.891 g/cm2, T-score -0.4 Change from prior: Improvement by 1.9%. Right femoral neck: 0.572 g/cm2, T-score -2.5 Femoral neck comparison data not recommended for monitoring change. Right total hip: 0.814 g/cm2, T-score -1.0 Change from prior: Loss of 3.2%. The World Health Organization has defined the following categories based on bonedensity: Normal bone density: T-score equal to or greater than -1.0 Osteopenia: T-score between -1.0 and -2.5 Osteoporosis: T-score equal to or less than -2.5 The patient does meet the pharmacological treatment recommendations for prevention of osteoporosis. BD/Dexa Bone Density Study IMPRESSION: OSTEOPENIA. Recommend follow-up as clinically warranted. Reading Location: [place] [address] CC: GOYO Mcdowell ~ Matrix Worker: Signed [facility] Breast imaging reportOrdered By: Nisha Schmid on 07-13-2024 Study report [facility] Imaging Services [address] [place] [address] SCRN MAMM (CAD)W/DEMARIO BILAT MR#: [id number] Acct: [id number] Name: MARGARET BRASWELL Rep #: [id number] : 1950 F 74 From: Cecil Everett MD PCP: GOYO Cuello Status: REG C SHALONDA Study:SCRN MAMM (CAD)W/DEMARIO BILAT Date of Exa m: 07/13/24 Exam# [id number] Ordering Dr: Shahid Mcdowell EXAM: SCRN MAMM (CAD)W/DEMARIO BILAT DATE: 07/13/2024 CLINICAL HISTORY: F, Age 74 y/o , SCREENING BREAST CANCER RISK ASSESSMENT: Not reported TECHNIQUE: Bilateral screening digital breast tomosynthesis with 2D and 3D images. Computeraided detection. COMPARISON: None available FINDINGS: TISSUE DENSITY: The breast tissue is heterogenously dense, which may obscure small masses. Bilateral Breast Mammographic Findings: No suspicious masses, calcifications or other abnormalities are identified. BI/SCRN MAMM (CAD)W/DEMARIO BILAT IMPRESSION: OVERALL FINAL ASSESSMENT: BIRADS 1 NEGATIVE RECOMMENDATION: Routine annual follow-up in 1 Year A letter with findings and recommendations will be mailed to the patient. Reading Location: [id number] CC: GOYO Mcdowell ~ Matrix Worker: Signed [facility] Dexa Bone Density Studyon Dexa Bone Density Study [facility] Imaging Services [address] [place] [address] Dexa Bone Density Study MR#: [id number] Acct: [id number] Name: MARGARET BRASWELL Rep #: [id number] : 1950 F 74 From: Tripp guillen MD PCP: GOYO Cuello Status: REG CLI Study: Dexa Bone Density Study Date of Exam: 07/13/24 Exam# [id number] Ordering Dr: Francheska Mcdowell PROCEDURE: DEXA BONE DENSITY STUDY 07/13/2024 REASON FOR EXAM: F, age 74 y/o . Postmenopausal. TECHNIQUE: DXA scan of sites with data reported below. REFERENCE LINKS: ISCD Adult Positions COMPARISON: Prior study dated July 09, 2022. FINDINGS: BMD and T-SCORES Lumbar spine: 0.958 g/cm2, T-score -0.9 Levels: L1 through L4 Change from prior: Loss of 0.9%. Left femoral neck: 0.620 g/cm2, T-score -2.1 Femoral neck comparison data not recommended for monitoring change. Left total hip: 0.891 g/cm2, T-score -0.4 Change from prior: Improvement by 1.9%. Right femoral neck: 0.572 g/cm2, T-score -2.5 Femoral neck comparison data not recommended for monitoring change. Right total hip: 0.814 g/cm2, T-score -1.0 Change from prior: Loss of 3.2%. The World Health Organization has defined the following categories based on bone density: Normal bone density: T-score equal to or greater than -1.0 Osteopenia: T-score between -1.0 and -2.5 Osteoporosis: T-score equal to or less than -2.5 The patient does meet the pharmacological treatment recommendations for prevention of osteoporosis. BD/Dexa Bone Density Study IMPRESSION: OSTEOPENIA. Recommend follow-up as clinically warranted. Reading Location: [place] [address] CC: GOYO Mcdowell Matrix Worker: Signed Normal [facility] SCRN MAMM (CAD)W/DEMARIO BILATo n 07-13-2024 SCRN MAMM (CAD)W/DEMARIO BILAT [facility] Imaging Services [address] [place] [address] SCRN MAMM (CAD)W/DEMARIO BILAT MR#: [id number] Acct: [id number] Name: MARGARET BRASWELL Rep #: [id number] : 1950 F 74 From: Nisha Patel i, MD PCP: GOYO Cuello Status: [facility] Study: SCRN MAMM (CAD)W/DEMARIO BILAT Date of Exam: 06/25 Exam# [id number] Ordering Dr: Francheska Mcdowell EXAM: SCRN MAMM (CAD)W/DEMARIO BILAT DATE: 07/13/2024 CLINICAL HISTORY: F, Age 74 y/o , SCREENING BREAST CANCER RISK ASSESSMENT: Not reported TECHNIQUE: Bilateral screening digital breast tomosynthesis with 2D and 3D images. Computer aided detection. COMPARISON: None available FINDINGS: TISSUE DENSITY: The breast tissue is heterogenously dense, which may obscure small masses. Bilateral Breast Mammographic Findings: No suspicious masses, calcifications or other abnormalities are identified. BI/SCRN MAMM (CAD)W/DEMARIO BILAT IMPRESSION: OVERALL FINAL ASSESSMENT: BIRADS 1 NEGATIVE RECOMMENDATION: Routine annual follow-up in 1 Year A letter with findings and recommendations will be mailed to the patient. Reading Location: [id number] CC: INDUSTRIAL MACHINE ASSEMBLERMarquis Mcdowell Matrix Worker: Signed Normal [facility] Urgent Care Visit Reporton 0 07-08-2024 Urgent Care Visit Report [facility] [address], [address] [place] [address] OFFICE VISIT Date of Service: 07/08/24 MR#: [id number] Acct: [id number] Name: MARGARET BRASWELL Rep #: [id number] 3 : 1950 Provider: ANNETTE Rodríguez Age/Sex: 74/F Location: [facility] Status: Signed Intake Vital Signs 04/25/23 13:44 07/08/24 14:10 Height 5 ft 3 in 5 ft 3 in Weight: 150 lb BMI 26.5 BP 152/82 H Blood Pressure Location Lt brachial Position Sitting Respiration 14 Pulse 65 Pulse Source Monitor Temp 98.5 F Temp Source Temporal Pulse Oximetry (%) 96 Oxygen Delivery Method room air Intake Visit Reasons: SKIN PEELING IN MOUTH Chief Complaint: mouth mucosa skin peeling Stator Connector Required: No Accompanied by: Self Is patient in pain?: No Allergies No Known Allergies Allergy (Verified 07/08/24 14:06) Medications ???Medication ???Instructions ???Recorded ???Confirmed ???Type metoprolol succinate 50 mg PO #90 tabs 01/23/19 07/08/24 Hist ory tablet,extended release 24 hr ascorbic acid (vitamin C) 1,000 mg 1 g PO Q6H 04/25/23 07/08/24 His tory tablet aspirin 81 mg tablet,delayed 81 mg PO DAILY 04/25/23 07/08/24 H istory release cholecalciferol (vitamin D3) 125 125 mcg PO DAILY 04/25/23 07/08/24 History mcg (5,000 unit) capsule pantoprazole 40 mg tablet,delayed mg PO 04/25/23 07/08/24 History release calcium carbonate (Calcium 600) 600 mg PO QDAY 07/08/24 07/08/24 H istory clotrimazole 10 mg jim 10 mg mucous membrane TID 10 days 07/08/24 07/08/24 Rx #30 tabs ezetimibe 10 mg tablet mg PO 07/08/24 07/08/24 History hydroxychloroquine 200 mg tablet 200 mg PO QWEEK 07/08/24 07/08/24 History magnesium zinc 500-50 PO QDAY 07/08/24 History omega 6-unk-pyz-fish oil 60 mg-90 1 cap PO QDAY 07/08/24 07/08/24 H istory mg-500 mg capsule (Fish Oil) Have you fallen in the past year?: Yes PFSH Medical History Hip pain Pre-diabetes History of DVT (deep vein thrombosis) GERD (gastroesophageal reflux disease) Hyperlipidemia Hypertension Surgical History History of spinal fusion Family History Other Atrial fibrillation Diabetes Hyperlipidemia Hypertension Social History Smoking Status: Never smoker alcohol intake: current alcohol intake frequency: a few times a week Alcohol type: wine HPI HPI Chief Complaint: mouth mucosa skin peeling Details: MARGARET BRASWELL, is a 74 F who presents to the office today for initial evaluation of the inside of her mouth skin peeling. Patient does state that this has been occurring for the past 4 to 5 days. She denies environmental exposures. She has had no antibiotics recently. She does state that she has been eating a new food stating that she has had dill pickle peanuts every day for the past 2 weeks and states that she has had at least a handful several times daily. Patient also states that she has a new lipstick. In addition patient does report a new medication that she started 2 months ago. No other associated symptoms or alleviating/aggravat ing factors. ROS Const Constitutional: No other (6 system ROS completed with pertinent findings in the HPI otherwise normal.) Exam Const General: cooperative and healthy appearing [facility] Head: normocephalic and atraumatic Ears: hearing grossly normal bilaterally Nose: external nose normal Face and sinus: normal facial exam and face symmetric Mouth: oral mucosae normal and tongue normal Throat: posterior oropharynx normal Skin General: no rashes or lesions noted Neuro General: patient alert Psych Appearance: grossly normal Mental Status: mental status grossly normal Coding Level of Care Code Off vis,new,level 3 Diagnoses Mucous membrane inflammation R23.8 Assessment and Plan Assessment and Plan (1) Mucous membrane inflammation: Status: Acute Medications: New clotrimazole 10 mg mucous membrane TID 10 days 30 tabs 0RF Plan Clotrimazole as prescribed today. Patient also advised to discontinue eating the dill pickle peanuts and using the lipstick. Patient advised to follow-up with her PCP in 7 to 10 days if no better or sooner if worse. Patient verbalized understanding and agreement with all the above. Clinical Quality Measures Falls Risk Screening/Assistive Devices Have you fallen in the past year?: Yes 07/09/24 1326 Date Williams Rea Signature: Date (if applicable) CC: Normal [facility] Absolute lymphocyte countOrd ered By: Francheska Mcdowell on 06-28-2024 Lymphocytes Auto (Unsp spec) [#/Vol] 1.30 10*3/uL 0.83-4.51 [facility] Absolute neutrophil countOrd ered By: Francheska Mcdowell on 06-28-2024 Neutrophils (Bld) [#/Vol] 3.7 10*3/uL 2.0-7.7 [facility] Anion gap in Serum or Plasma Ordered By: Francheska Mcdowell on 06-28-2024 Anion gap [Moles/Vol] 11 mmol/L 5- [facility] Automated lymphocyte count a s percentage of total leukocytesOrdered By: Francheska Mcdowell on 06-28-2024 Lymphocytes/100 WBC Auto (Unsp spec) 22.2 % -41 [facility] BUN/creatinine ratioOrdered By: Francheska Mcdowell on 06-28-2024 Urea nitrogen/Creatinine [Mass ratio] 32.5 mg/mg High 10-20 [facility] Basophil percentageOrdered B y: Francheska Mcdowell on 06-28-2024 Basophils/100 WBC (Bld) 0.9 % 0-1 [facility] Bilirubin, totalOrdered By: Francheska Mcdowell on 06-28-2024 Bilirubin [Mass/Vol] 0.36 mg/dL 0.00-1.30 [facility] CBC W/Diff, Automatedon Absolute Lymph 1.30 X10 3/uL Normal 0.83-4.51 [facility] Comment on above: Performed By: #### L 500.4100, L506.1001, L100.0100, L500.4050, L501.9985 #### [facility] [address] [place], [address] Absolute Neut 3.7 X10 3/uL Normal 2.0-7.7 [facility] Comment on above: Performed By: #### L 500.4100, L506.1001, L100.0100, L500.4050, L501.9985 #### [facility] [address] [place], [address] Basophils/100 WBC (Bld) 0.9 % Normal 0-1 [facility] Comment on above: Performed By: #### L 500.4100, L506.1001, L100.0100, L500.4050, L501.9985 #### [facility] [address] [place], [address] Eosinophils/100 WBC (Bld) 3.8 % Normal 0-5 [facility] Comment on above: Performed By: #### L 500.4100, L506.1001, L100.0100, L500.4050, L501.9985 #### [facility] [address] [place], [address] Erythrocyte distribution width (RBC) [Ratio] 13.7 % Normal 11.6-14.6 [facility] Comment on above: Performed By: #### L 500.4100, L506.1001, L100.0100, L500.4050, L501.9985 #### [facility] [address] [place], [address] Hematocrit (Bld) [Volume fraction] 37.0 % Normal 37-47 [facility] Comment on above: Performed By: #### L 500.4100, L506.1001, L100.0100, L500.4050, L501.9985 #### [facility] [address] [place], [address] Hemoglobin (Bld) [Mass/Vol] 12.0 g/dL Normal 12.0-15.0 [facility] Comment on above: Performed By: #### L 500.4100, L506.1001, L100.0100, L500.4050, L501.9985 #### [facility] [address] [place], [address] IG% 0.300 Normal 0.0-0.9 [facility] Comment on above: Result Comment: IG% - Immature Granulocytes (promyelocytes, myelocytes and metamyelocytes) > 1% indicates that a LEFT SHIFT is Present. Performed By: #### L 500.4100, L506.1001, L100.0100, L500.4050, L501.9985 #### [facility] [address] [place], [address] Lymphocytes/100 WBC (Bld) 22.2 % Normal 19-41 [facility] Comment on above: Performed By: #### L 500.4100, L506.1001, L100.0100, L500.4050, L501.9985 #### [facility] [address] [place], [address] MCH (RBC) [Entitic mass] 31.2 pg Normal 27.0-32.0 [facility] Comment on above: Performed By: #### L 500.4100, L506.1001, L100.0100, L500.4050, L501.9985 #### [facility] [address] [place], [address] MCHC (RBC) [Mass/Vol] 32.4 g/dL Normal 32-36 [facility] Comment on above: Performed By: #### L 500.4100, L506.1001, L100.0100, L500.4050, L501.9985 #### [facility] [address] [place], [address] MCV (RBC) [Entitic vol] 96.1 fL Normal 81-99 [facility] Comment on above: Performed By: #### L 500.4100, L506.1001, L100.0100, L500.4050, L501.9985 #### [facility] [address] [place], [address] Monocytes/100 WBC (Bld) 10.3 % High 0-10 [facility] Comment on above: Performed By: #### L 500.4100, L506.1001, L100.0100, L500.4050, L501.9985 #### [facility] [address] [place], [address] Neutrophils/100 WBC (Bld) 62.5 % Normal 47-70 [facility] Comment on above: Performed By: #### L 500.4100, L506.1001, L100.0100, L500.4050, L501.9985 #### [facility] [address] [place], [address] Nucleated RBC (Bld) [#/Vol] 0 10*3/uL Normal 0-5 [facility] Comment on above: Performed By: #### L 500.4100, L506.1001, L100.0100, L500.4050, L501.9985 #### [facility] [address] [place], [address] Platelet mean volume (Bld) [Entitic vol] 10.2 fL Normal 6.2-12.0 [facility] Comment on above: Performed By: #### L 500.4100, L506.1001, L100.0100, L500.4050, L501.9985 #### [facility] [address] [place], [address] Platelets (Bld) [#/Vol] 193 10*3/uL Normal 150-450 [facility] Comment on above: Performed By: #### L 500.4100, L506.1001, L100.0100, L500.4050, L501.9985 #### [facility] [address] [place], [address] RBC (Bld) [#/Vol] 3.85 10*6/uL Low 4.2-5.4 [facility] Comment on above: Performed By: #### L 500.4100, L506.1001, L100.0100, L500.4050, L501.9985 #### [facility] [address] [place], [address] RDW SD 48.4 fl High 35.1-43.9 [facility] Comment on above: Performed By: #### L 500.4100, L506.1001, L100.0100, L500.4050, L501.9985 #### [facility] [address] [place], [address] WBC (Bld) [#/Vol] 5.9 10*3/uL Normal 4.4-11.0 [facility] Comment on above: Performed By: #### L 500.4100, L506.1001, L100.0100, L500.4050, L501.9985 #### [facility] [address] [place], [address] Calculated very low density lipoprotein (VLDL) cholesterol measurementOrdered By: Francheska Mcdowell on 06-28-2024 Calculated very low density lipoprotein (VLDL) cholesterol measurement 23 mg/dL 5-40 [facility] Carbon dioxide, total [Moles /volume] in Central venous bloodOrdered By: Francheska Mcdowell on 06-28-2024 CO2 [Moles/Vol] 23.4 mmol/L 21.0-32.0 [facility] Chloride assayOrdered By: Tami Mcdowell on 06-28-2024 Chloride [Moles/Vol] 106 mmol/L 98-108 [facility] Comprehensive Metabolic Prof ilon 06-28-2024 Albumin [Mass/Vol] 4.2 g/dL Normal 3.4-4.8 [facility] Comment on above: Performed By: #### L 500.4100, L506.1001, L100.0100, L500.4050, L501.9985 #### [facility] [address] [place], [address] Albumin/Globulin [Mass ratio] 1.5 {ratio} Normal 0.9-2.4 [facility] Comment on above: Performed By: #### L 500.4100, L506.1001, L100.0100, L500.4050, L501.9985 #### [facility] [address] [place], [address] ALK PHOS 58 U/L Normal 35-104 [facility] Comment on above: Performed By: #### L 500.4100, L506.1001, L100.0100, L500.4050, L501.9985 #### [facility] [address] [place], [address] ALT [Catalytic activity/Vol] 28 U/L Normal <=34 [facility] Comment on above: Performed By: #### L 500.4100, L506.1001, L100.0100, L500.4050, L501.9985 #### [facility] [address] [place], [address] AST [Catalytic activity/Vol] 23 U/L Normal <=31 [facility] Comment on above: Performed By: #### L 500.4100, L506.1001, L100.0100, L500.4050, L501.9985 #### [facility] [address] [place], [address] Bilirubin [Mass/Vol] 0.36 mg/dL Normal 0.00-1.30 [facility] Comment on above: Performed By: #### L 500.4100, L506.1001, L100.0100, L500.4050, L501.9985 #### [facility] [address] [place], [address] BUN/CRE 32.5 RATIO High 10-20 [facility] Comment on above: Performed By: #### L 500.4100, L506.1001, L100.0100, L500.4050, L501.9985 #### [facility] [address] [place], [address] Calcium [Mass/Vol] 9.6 mg/dL Normal 7.6-11.0 [facility] Comment on above: Performed By: #### L 500.4100, L506.1001, L100.0100, L500.4050, L501.9985 #### [facility] [address] [place], [address] Chloride [Moles/Vol] 106 mmol/L Normal 98-108 [facility] Comment on above: Performed By: #### L 500.4100, L506.1001, L100.0100, L500.4050, L501.9985 #### [facility] [address] [place], [address] CO2 [Moles/Vol] 23.4 mmol/L Normal 21.0-32.0 [facility] Comment on above: Performed By: #### L 500.4100, L506.1001, L100.0100, L500.4050, L501.9985 #### [facility] [address] [place], [address] Creatinine [Mass/Vol] 0.68 mg/dL Low 0.70-1.20 [facility] Comment on above: Performed By: #### L 500.4100, L506.1001, L100.0100, L500.4050, L501.9985 #### [facility] [address] [place], [address] GAP 11 Normal 5-15 [facility] Comment on above: Performed By: #### L 500.4100, L506.1001, L100.0100, L500.4050, L501.9985 #### [facility] [address] [place], [address] GFR/1.73 sq M.predicted among non-blacks MDRD (S/P/Bld) [Vol rate/Area] 91 mL/min/{1.73_m2} Normal >60 [facility] Comment on above: Result Comment: mL/m in/1.73m2 CKD-EPI Creatinine Equation (2020) Performed By: #### L 500.4100, L506.1001, L100.0100, L500.4050, L501.9985 #### [facility] [address] [place], [address] Globulin (S) [Mass/Vol] 2.7 g/dL Normal 2.2-4.2 [facility] Comment on above: Performed By: #### L 500.4100, L506.1001, L100.0100, L500.4050, L501.9985 #### [facility] [address] [place], [address] Glucose [Mass/Vol] 113 mg/dL High 70-99 [facility] Comment on above: Performed By: #### L 500.4100, L506.1001, L100.0100, L500.4050, L501.9985 #### [facility] [address] [place], [address] Potassium [Moles/Vol] 4.1 mmol/L Normal 3.3-5.1 [facility] Comment on above: Performed By: #### L 500.4100, L506.1001, L100.0100, L500.4050, L501.9985 #### [facility] [address] [place], [address] Sodium [Moles/Vol] 140 mmol/L Normal 133-145 [facility] Comment on above: Performed By: #### L 500.4100, L506.1001, L100.0100, L500.4050, L501.9985 #### [facility] [address] [place], [address] T PROT 6.9 g/dL Normal 5.9-8.4 [facility] Comment on above: Performed By: #### L 500.4100, L506.1001, L100.0100, L500.4050, L501.9985 #### [facility] [address] [place], [address] Urea nitrogen [Mass/Vol] 22 mg/dL High 4-19 [facility] Comment on above: Performed By: #### L 500.4100, L506.1001, L100.0100, L500.4050, L501.9985 #### [facility] [address] [place], [address] Eosinophil percentageOrdered By: Francheska Mcdowell on 06-28-2024 Eosinophils/100 WBC (Bld) 3.8 % 0-5 [facility] Erythrocyte distribution wid th ratioOrdered By: Francheska Mcdowell on 06-28-2024 Erythrocyte distribution width (RBC) [Ratio] 13.7 % 11.6-14.6 [facility] Erythrocyte distribution wid th standard deviationOrdered By: Francheska Mcdowell on 06-28-2024 Erythrocyte distribution width (RBC) [Ratio] 48.4 fl High 35.1-43.9 [facility] Glomerular filtration rate ( GFR) estimation/1.73 sq m using serum, plasma, or whole bOrdered By: Francheska Mcdowell on 06-28-2024 GFR/1.73 sq M.predicted among non-blacks MDRD (S/P/Bld) [Vol rate/Area] 91 mL/min/{1.73_m2} >60 [facility] Comment on above: mL/min/1.73m2 CKD-EP I Creatinine Equation (2020) Hematocrit Auto (Bld) [Volum e fraction]Ordered By: Francheska Mcdowell on 06-28-2024 Hematocrit (Bld) [Volume fraction] 37.0 % 37-47 [facility] Hemoglobin A1con 06-28-2024 HbA1c (Bld) [Mass fraction] 5.8 % High <=5.6 [facility] Comment on above: Result Comment: Norm al < 5.7 % Prediabetic 5.7 - 6.4 % Diabetic >or= 6.5 % Please note range changes. Performed By: #### L 500.4100, L506.1001, L100.0100, L500.4050, L501.9985 #### [facility] [address] [place], [address] Hemoglobin A1c percentageOrd ered By: Francheska Mcdowell on 06-28-2024 HbA1c (Bld) [Mass fraction] 5.8 % High <5.7 [facility] Comment on above: Normal < 5.7 % Predi abetic 5.7 - 6.4 % Diabetic >or= 6.5 % Please note range changes. Hemoglobin measurementOrdere d By: Francheska Mcdowell on 06-28-2024 Hemoglobin (Bld) [Mass/Vol] 12.0 g/dL 12.0-15.0 [facility] Immature granulocytes/100 WB C Auto (Bld)Ordered By: Francheska Mcdowell on 06-28-2024 Immature granulocytes/100 WBC (Bld) 0.300 % 0.0-0.9 [facility] Comment on above: IG% - Immature Granu locytes (promyelocytes, myelocytes and metamyelocytes) > 1% indicates that a LEFT SHIFT is Present. LDL calc ser/plasOrdered By: Francheska Mcdowell on 06-28-2024 Cholesterol in LDL [Mass/Vol] 169 mg/dL [facility] Comment on above: Jkwmygkcde=350-468 m g/dL & Higher Vaov=291 mg/dL or greater Laboratory - Chemistry and C hemistry - challengeOrdered By: Francheska Mcdowell on 06-28-2024 AST [Catalytic activity/Vol] 23 U/L <32 [facility] Lipid Profileon 06-28-2024 CHOL:HDL 3.64 Normal [facility] Comment on above: Performed By: #### L 500.4100, L506.1001, L100.0100, L500.4050, L501.9985 #### [facility] [address] [place], [address] Cholesterol [Mass/Vol] 264 mg/dL High <=200 [facility] Comment on above: Result Comment: Chol esterol level, Desirable <200 mg/dL Borderline high cholesterol 200-239 mg/dL High cholesterol >=240 mg/dL Recommendations of the NCEP Adult Treatment Panel for the following risk-cutoff thresholds for the [place] population. Performed By: #### L 500.4100, L506.1001, L100.0100, L500.4050, L501.9985 #### [facility] [address] [place], [address] Cholesterol in HDL [Mass/Vol] 73 mg/dL Normal [facility] Comment on above: Result Comment: [place] on[place] Cholesterol Education Program (NCEP) guidelines: <40 mg/dL: Low HDL-cholesterol (major risk factor for CHD) >= 60 mg/dL: High HDL-cholesterol (negative risk factor for CHD) HDL-cholesterol is affected by a number of factors, e.g. smoking, exercise, hormones, sex and age. Performed By: #### L 500.4100, L506.1001, L100.0100, L500.4050, L501.9985 #### [facility] [address] [place], [address] Cholesterol in LDL [Mass/Vol] 169 mg/dL Normal [facility] Comment on above: Result Comment: Bord spcvff=611-900 mg/dL Higher Wevz=848 mg/dL or greater Performed By: #### L 500.4100, L506.1001, L100.0100, L500.4050, L501.9985 #### [facility] [address] [place], [place], [address] Cholesterol in VLDL [Mass/Vol] 23 mg/dL Normal 5-40 [facility] Comment on above: Performed By: #### L 500.4100, L506.1001, L100.0100, L500.4050, L501.9985 #### [facility] [address] [place], [address] Triglyceride [Mass/Vol] 114 mg/dL Normal [facility] Comment on above: Result Comment: The drugs N-Acetylcysteine and Metamizole may falsely depress this assay. Normal range: <150 mg/dL Borderline High: 150-199 mg/dL High: 200-499 mg/dL Very High: >500 mg/dL Performed By: #### L 500.4100, L506.1001, L100.0100, L500.4050, L501.9985 #### [facility] [address] [place], [address] MCV (mean corpuscular volume ) determinationOrdered By: Francheska Mcdowell on 06-28-2024 MCV (RBC) [Entitic vol] 96.1 fL 81-99 [facility] Mean corpuscular hemoglobin (MCH) determinationOrdered By: Francheska Mcdowell on 06-28-2024 MCH (RBC) [Entitic mass] 31.2 pg 27.0-32.0 [facility] Mean corpuscular hemoglobin concentration (MCHC) determinationOrdered By: Francheska Mcdowell on 06-28-2024 MCHC (RBC) [Mass/Vol] 32.4 g/dL 32-36 [facility] Mean platelet volume determi nationOrdered By: Francheska Mcdowell on 06-28-2024 Platelet mean volume (Bld) [Entitic vol] 10.2 fL 6.2-12.0 [facility] Monocyte percentageOrdered B y: Francheska Mcdowell on 06-28-2024 Monocytes/100 WBC (Bld) 10.3 % High 0-10 [facility] Neutrophil percentageOrdered By: Francheska Mcdowell on 06-28-2024 Neutrophils/100 WBC (Bld) 62.5 % 47-70 [facility] Nucleated red blood cell per centageOrdered By: Francheska Mcdowell on 06-28-2024 Nucleated RBC/100 WBC (Bld) [Ratio] 0 % 0-5 [facility] Platelet countOrdered By: Tami Mcdowell on 06-28-2024 Platelets (Bld) [#/Vol] 193 10*3/uL 150-450 [facility] Potassium measurement (mass/ volume)Ordered By: Francheska Mcdowell on 06-28-2024 Potassium (Unsp spec) [Mass/Vol] 4.1 mmol/L 3.3-5.1 [facility] RBC Auto (Bld) [#/Vol]Ordere d By: Francheska Mcdowell on 06-28-2024 RBC (Bld) [#/Vol] 3.85 10*6/uL Low 4.2-5.4 [facility] Screening total cholesterol/ high density lipoprotein (HDL) cholesterol ratioOrdered By: Francheska Mcdowell on 06-28-2024 Cholesterol.total/Nicolette sterol in HDL [Mass ratio] 3.64 {ratio} [facility] Serum creatinine measurement (mass/volume)Ordered By: Francheska Mcdowell on 06-28-2024 Creatinine [Mass/Vol] 0.68 mg/dL Low 0.70-1.20 [facility] Serum globulin measurementOr dered By: Francheska Mcdowell on 06-28-2024 Globulin (S) [Mass/Vol] 2.7 g/dL 2.2-4.2 [facility] Serum glucose measurement (m ass/volume)Ordered By: Francheska Mcdowell on 06-28-2024 Glucose [Mass/Vol] 113 mg/dL High 70-99 [facility] Serum or plasma alanine luevano otransferase (ALT) measurementOrdered By: Francheska Mcdowlel on 06-28-2024 ALT [Catalytic activity/Vol] 28 U/L <35 [facility] Serum or plasma albumin jo-ann urement (mass/volume)Ordered By: Francheska Mcdowell on 06-28-2024 Albumin [Mass/Vol] 4.2 g/dL 3.4-4.8 [facility] Serum or plasma albumin/glob ulin mass ratioOrdered By: Francheska Mcdowell on 06-28-2024 Albumin/Globulin [Mass ratio] 1.5 {ratio} 0.9-2.4 [facility] Serum or plasma alkaline priti sphatase measurementOrdered By: Francheska Mcdowell on 06-28-2024 ALP [Catalytic activity/Vol] 58 U/L 35-104 [facility] Serum or plasma calcium jo-ann urement (mass/volume)Ordered By: Francheska Mcdowell on 06-28-2024 Calcium [Mass/Vol] 9.6 mg/dL 7.6-11.0 [facility] Serum or plasma cholesterol in HDL measurement (mass/volume)Ordered By: Francheska Mcdowell on 06-28-2024 Cholesterol in HDL [Mass/Vol] 73 mg/dL >40 [facility] Comment on above: National Cholesterol Education Program (NCEP) guidelines:<40 mg/dL: Low HDL-cholesterol (major risk factor for CHD)>= 60 mg/dL: High HDL-cholesterol (negative risk factor for CHD)HDL-cholesterol is affected by a number of factors, e.g. smoking, exercise, hormones, sex and age. Serum or plasma cholesterol measurement (mass/volume)Ordered By: Francheska Mcdowell on 06-28-2024 Cholesterol [Mass/Vol] 264 mg/dL High <201 [facility] Comment on above: Cholesterol level, D esirable <200 mg/dLBorderline high cholesterol 200-239 mg/dLHigh cholesterol >=240 mg/dLRecommendations of the NCEP Adult Treatment Panel for the following risk-cutoff thresholds for the [place] population. Serum or plasma urea nitroge n measurement (mass/volume)Ordered By: Francheska Mcdowell on 06-28-2024 Urea nitrogen [Mass/Vol] 22 mg/dL High 4-19 [facility] Sodium levelOrdered By: Queenie Mcdowell on 06-28-2024 Sodium [Moles/Vol] 140 mmol/L 133-145 [facility] Total proteinOrdered By: Kishan Mcdowell on 06-28-2024 Protein [Mass/Vol] 6.9 g/dL 5.9-8.4 [facility] Triglycerides measurementOrd ered By: Francheska Mcdowell on 06-28-2024 Triglyceride [Mass/Vol] 114 mg/dL <199 [facility] Comment on above: The drugs N-Acetylcy steine and Metamizole may falsely depress this assay. Normal range: <150 mg/dLBorderline High: 150-199 mg/dLHigh: 200-499 mg/dLVery High: >500 mg/dL Vitamin D,25 Hydroxyon 06-28 Vitamin D 25-OH 51.7 ng/mL Normal 30-100 [facility] Comment on above: Result Comment: Shraddha min D Status Deficiency: <20 ng/mL (50nmol/L) Insufficiency: 20-30 ng/mL (50-75 nmol/L) Sufficiency: 30-100 ng/mL (75-250 nmol/L) Toxicity: >100 ng/mL (>250 nmol/L) Performed By: #### L 500.4100, L506.1001, L100.0100, L500.4050, L501.9985 #### [facility] [address] [place], [address] White blood cell (WBC) count Ordered By: Francheska Mcdowell on 06-28-2024 WBC (Bld) [#/Vol] 5.9 10*3/uL 4.4-11.0 [facility] Folates, (Folic Acid)on 10-25 FOLATES 4.20 ng/mL Normal 3.1-55.4 [facility] Comment on above: Order Comment: N Performed By: #### L 503.0105, L501.9985, L500.4100, L506.0250 #### [facility] [address] [place], [address] Hemoglobin A1con 11-10-2023 HbA1c (Bld) [Mass fraction] 5.7 % High 3.8-5.6 [facility] Comment on above: Result Comment: Norm al < 5.7 % Prediabetic 5.7 - 6.4 % Diabetic >or= 6.5 % Please note range changes. Performed By: #### L 503.0105, L501.9985, L500.4100, L506.0250 #### [facility] [address] [place], [address] Lipid Profileon 11-10-2023 Cholesterol [Mass/Vol] 200 mg/dL Normal 200 [facility] Comment on above: Order Comment: N Result Comment: <200 mg/dL Desirable 200-240 mg/dL Borderline >240 mg/dL High Risk Performed By: #### L 503.0105, L501.9985, L500.4100, L506.0250 #### [facility] [address] [place], [address] Cholesterol in HDL [Mass/Vol] 54 mg/dL Normal [facility] Comment on above: Order Comment: N Result Comment: The drugs N-Acetylcysteine and Metamizole may falsely depress this assay. Reference Range HDL <40 mg/dL Low HDL Cholesterol HDL >or= 60 mg/dL High HDL Cholesterol Performed By: #### L 503.0105, L501.9985, L500.4100, L506.0250 #### [facility] [address] [place], [address] Cholesterol in LDL [Mass/Vol] 102 mg/dL Normal 0-130 [facility] Comment on above: Order Comment: N Performed By: #### L 503.0105, L501.9985, L500.4100, L506.0250 #### [facility] [address] [place], [address] Cholesterol in VLDL [Mass/Vol] 44 mg/dL High 5-40 [facility] Comment on above: Order Comment: N Performed By: #### L 503.0105, L501.9985, L500.4100, L506.0250 #### [facility] [address] [place], [address] Triglyceride [Mass/Vol] 220 mg/dL High [facility] Comment on above: Order Comment: N Result Comment: The drugs N-Acetylcysteine and Metamizole may falsely depress this assay. Serum Triglycerides Reference Interval Normal <150 mg/dL Borderline high 150 - 199 mg/dL High 200 - 499 mg/dL Very High > or = 500 mg/dL Performed By: #### L 503.0105, L501.9985, L500.4100, L506.0250 #### [facility] [address] [place], [address] Vitamin B12on 11-10-2023 Cobalamin (Vitamin B12) [Mass/Vol] 496 pg/mL Normal 211-911 [facility] Comment on above: Performed By: #### L 503.0105, L501.9985, L500.4100, L506.0250 #### [facility] [address] [place], [address] Absolute lymphocyte countOrd ered By: Francheska Jeremias on 06-26-2023 Lymphocytes Auto (Unsp spec) [#/Vol] 1.07 10*3/uL 0.83-4.51 [facility] Automated lymphocyte count a s percentage of total leukocytesOrdered By: Francheska Mcdowell on 06-26-2023 Lymphocytes/100 WBC Auto (Unsp spec) 20.5 % 19-41 [facility] Basophil percentageOrdered B y: Francheska Mcdowell on 06-26-2023 Basophils/100 WBC (Bld) 0.8 % 0-1 [facility] Bilirubin [Mass/Vol] 0.50 mg/dL 0.20-1.00 [facility] Comment on above: For patients on eltr ombopag therapy, use of Dimension Pollard TBIL is not recommended. Chloride [Moles/Vol] 109 mmol/L 98-107 [facility] Cholesterol [Mass/Vol] 223 mg/dL <200 [facility] Comment on above: <200 mg/dL Desirable 200-240 mg/dL Borderline >240 mg/dL High Risk Eosinophils/100 WBC (Bld) 6.1 % 0-5 [facility] Glucose [Mass/Vol] 138 mg/dL 74-106 [facility] Comment on above: Fasting Glucose resu lt greater than or equal to 126 mg/dL suggests DIABETES MELLITUS per A.D.A. criteria. Hemoglobin (Bld) [Mass/Vol] 11.3 g/dL 12.0-15.0 [facility] Monocytes/100 WBC (Bld) 11.9 % 0-10 [facility] Neutrophils (Bld) [#/Vol] 3.2 10*3/uL 2.0-7.7 [facility] Neutrophils/100 WBC (Bld) 60.3 % 47-70 [facility] Potassium [Moles/Vol] 4.1 mmol/L 3.5-5.1 [facility] Protein [Mass/Vol] 7.2 g/dL 6.4-8.2 [facility] Sodium [Moles/Vol] 141 mmol/L 136-145 [facility] Triglyceride [Mass/Vol] 234 mg/dL <199 [facility] Comment on above: The drugs N-Acetylcy steine and Metamizole may falsely depress this assay.Serum Triglycerides Reference Interval Normal <150 mg/dL Borderline high 150 - 199 mg/dL High 200 - 499 mg/dL Very High > or = 500 mg/dL WBC (Bld) [#/Vol] 5.2 10*3/uL 4.4-11.0 [facility] Determination of erythrocyte mean corpuscular volume (MCV)Ordered By: Francheska Mcdowell on 06-26-2023 MCV (RBC) [Entitic vol] 99.4 fL 81-99 [facility] Erythrocyte distribution wid th ratioOrdered By: Francheska Mcdowell on 06-26-2023 Erythrocyte distribution width (RBC) [Ratio] 13.5 % 11.6-14.6 [facility] Erythrocyte distribution wid th standard deviationOrdered By: Francheska Mcdowell on 06-26-2023 Erythrocyte distribution width (RBC) [Entitic vol] 48.5 fL 35.1-43.9 [facility] Hematocrit Auto (Bld) [Volum e fraction]Ordered By: Francheska Mcdowell on 06-26-2023 Hematocrit (Bld) [Volume fraction] 35.7 % 37-47 [facility] Immature granulocytes/100 WB C Auto (Bld)Ordered By: Francheska Mcdowell on 06-26-2023 Immature granulocytes/100 WBC (Bld) 0.400 % 0.0-0.9 [facility] Comment on above: IG% - Immature Granu locytes (promyelocytes, myelocytes and metamyelocytes) > 1% indicates that a LEFT SHIFT is Present. Laboratory - Chemistry and C hemistry - challengeOrdered By: Francheska Mcdowell on 06-26-2023 Albumin/Globulin [Mass ratio] 1.0 {ratio} 0.9-2.4 [facility] ALP [Catalytic activity/Vol] 68 U/L 45-117 [facility] ALT [Catalytic activity/Vol] 35 U/L 13-56 [facility] Cholesterol in HDL [Mass/Vol] 64 mg/dL >40 [facility] Comment on above: The drugs N-Acetylcy steine and Metamizole may falsely depress this assay. Reference Range HDL <40 mg/dL Low HDL Cholesterol HDL >or= 60 mg/dL High HDL Cholesterol Cholesterol in LDL [Mass/Vol] 112 mg/dL 0-130 [facility] CO2 [Moles/Vol] 27.0 mmol/L 21.0-32.0 [facility] Globulin (S) [Mass/Vol] 3.6 g/dL 2.2-4.2 [facility] Urea nitrogen/Creatinine [Mass ratio] 30.0 mg/mg 10-20 [facility] Laboratory - Hematology and Cell countsOrdered By: Francheska Mcdowell on 06-26-2023 MCH (RBC) [Entitic mass] 31.5 pg 27.0-32.0 [facility] MCHC (RBC) [Mass/Vol] 31.7 g/dL 32-36 [facility] Nucleated RBC/100 WBC (Bld) [Ratio] 0 % 0-5 [facility] Platelet mean volume (Bld) [Entitic vol] 10.7 fL 6.2-12.0 [facility] Platelets (Bld) [#/Vol] 202 10*3/uL 150-450 [facility] No Panel InformationOrdered By: Francheska Mcdowell on 06-26-2023 Estimated GFR (MDRD) Amer 90 mL/min >60 [facility] Comment on above: GFR Calc Estimated GFR (MDRD) Non-Af Amer 75 mL/min >60 [facility] Comment on above: Non- GFR Calc Vitamin D 25-Hydroxy 57.1 ng/mL [facility] Comment on above: Vitamin D 25(OH) Sta tus Range Deficiency <20 ng/mL (50nmol/L) Insufficiency 20 - 30 ng/mL (50 - 75 nmol/L) Sufficiency 30 - 100 ng/mL (75 - 250 nmol/L) Toxicity >100 ng/mL (>250 nmol/L) VLDL Cholesterol 47 mg/dL 5-40 [facility] RBC Auto (Bld) [#/Vol]Ordere d By: Francheska Mcdowell on 06-26-2023 RBC (Bld) [#/Vol] 3.59 10*6/uL 4.2-5.4 [facility] Serum or plasma calcium jo-ann urement (mass/volume)Ordered By: Francheska Mcdowell on 06-26-2023 Calcium [Mass/Vol] 8.9 mg/dL 8.5-10.1 [facility] Serum or plasma creatinine m easurement (mass/volume)Ordered By: Francheska Mcdowell on 06-26-2023 Creatinine [Mass/Vol] 0.80 mg/dL 0.55-1.02 [facility] Comment on above: The validity of the calculated GFR & GFRAA in patients over 70 years has not been determined. Clinical correlation is essential. Serum or plasma urea nitroge n measurement (mass/volume)Ordered By: Francheska Mcdowell on 06-26-2023 Urea nitrogen [Mass/Vol] 24 mg/dL 7-18 [facility] Thin prep Papanicolaou smear with manual screeningOrdered By: Francheska Mcdowell on 06-26-2023 Thin prep Papanicolaou smear with manual screening 3.6 g/dL 3.2-5.0 [facility] Thin prep Papanicolaou smear with manual screening 26 U/L 15-37 [facility] Thin prep Papanicolaou smear with manual screening 5 5-15 [facility] Whole blood hemoglobin A1c/t otal hemoglobin ratio (mass fraction)Ordered By: Francheska Mcdowell on 06-26-2023 HbA1c (Bld) [Mass fraction] 5.4 % 3.8-5.6 [facility] Comment on above: Normal < 5.7 % Predi abetic 5.7 - 6.4 % Diabetic >or= 6.5 % Please note range changes. Absolute lymphocyte countOrd ered By: Francheska Mcdowell on 03-24-2023 Lymphocytes Auto (Unsp spec) [#/Vol] 1.10 10*3/uL 0.83-4.51 [facility] Automated lymphocyte count a s percentage of total leukocytesOrdered By: Francheska Mcdowell on 03-24-2023 Lymphocytes/100 WBC Auto (Unsp spec) 21.4 % 19-41 [facility] Basophil percentageOrdered B y: Francheska Mcdowell on 03-24-2023 Basophils/100 WBC (Bld) 1.0 % 0-1 [facility] Bilirubin [Mass/Vol] 0.60 mg/dL 0.20-1.00 [facility] Comment on above: For patients on eltr ombopag therapy, use of Dimension Pollard TBIL is not recommended. Chloride [Moles/Vol] 107 mmol/L 98-107 [facility] Cholesterol [Mass/Vol] 317 mg/dL <200 [facility] Comment on above: <200 mg/dL Desirable 200-240 mg/dL Borderline >240 mg/dL High Risk Eosinophils/100 WBC (Bld) 4.3 % 0-5 [facility] Glucose [Mass/Vol] 129 mg/dL 74-106 [facility] Comment on above: Fasting Glucose resu lt greater than or equal to 126 mg/dL suggests DIABETES MELLITUS per A.D.A. criteria. Hemoglobin (Bld) [Mass/Vol] 12.8 g/dL 12.0-15.0 [facility] Monocytes/100 WBC (Bld) 11.1 % 0-10 [facility] Neutrophils (Bld) [#/Vol] 3.2 10*3/uL 2.0-7.7 [facility] Neutrophils/100 WBC (Bld) 62.0 % 47-70 [facility] Potassium [Moles/Vol] 4.0 mmol/L 3.5-5.1 [facility] Protein [Mass/Vol] 7.4 g/dL 6.4-8.2 [facility] Sodium [Moles/Vol] 138 mmol/L 136-145 [facility] Triglyceride [Mass/Vol] 215 mg/dL <199 [facility] Comment on above: The drugs N-Acetylcy steine and Metamizole may falsely depress this assay.Serum Triglycerides Reference Interval Normal <150 mg/dL Borderline high 150 - 199 mg/dL High 200 - 499 mg/dL Very High > or = 500 mg/dL WBC (Bld) [#/Vol] 5.1 10*3/uL 4.4-11.0 [facility] Determination of erythrocyte mean corpuscular volume (MCV)Ordered By: Francheska Mcdowell on 03-24-2023 MCV (RBC) [Entitic vol] 99.0 fL 81-99 [facility] Erythrocyte distribution wid th ratioOrdered By: Francheska Mcdowell on 03-24-2023 Erythrocyte distribution width (RBC) [Ratio] 13.5 % 11.6-14.6 [facility] Erythrocyte distribution wid th standard deviationOrdered By: Francheska Mcdowell on 03-24-2023 Erythrocyte distribution width (RBC) [Entitic vol] 49.5 fL 35.1-43.9 [facility] Hematocrit Auto (Bld) [Volum e fraction]Ordered By: Francheska Mcdowell on 03-24-2023 Hematocrit (Bld) [Volume fraction] 39.0 % 37-47 [facility] High density lipoprotein (HD L) measurementOrdered By: Francheska Mcdowell on 03-24-2023 Cholesterol in HDL (Body fld) [Mass/Vol] 74 mg/dL >40 [facility] Comment on above: The drugs N-Acetylcy steine and Metamizole may falsely depress this assay. Reference Range HDL <40 mg/dL Low HDL Cholesterol HDL >or= 60 mg/dL High HDL Cholesterol Immature granulocytes/100 WB C Auto (Bld)Ordered By: Francheska Mcdowell on 03-24-2023 Immature granulocytes/100 WBC (Bld) 0.200 % 0.0-0.9 [facility] Comment on above: IG% - Immature Granu locytes (promyelocytes, myelocytes and metamyelocytes) > 1% indicates that a LEFT SHIFT is Present. Laboratory - Chemistry and C hemistry - challengeOrdered By: Francheska Mcdowell on 03-24-2023 Albumin/Globulin [Mass ratio] 1.0 {ratio} 0.9-2.4 [facility] ALP [Catalytic activity/Vol] 62 U/L 45-117 [facility] ALT [Catalytic activity/Vol] 32 U/L 13-56 [facility] CO2 [Moles/Vol] 26.0 mmol/L 21.0-32.0 [facility] Globulin (S) [Mass/Vol] 3.7 g/dL 2.2-4.2 [facility] Urea nitrogen/Creatinine [Mass ratio] 30.9 mg/mg 10-20 [facility] Laboratory - Hematology and Cell countsOrdered By: Francheska Mcdowell on 03-24-2023 MCH (RBC) [Entitic mass] 32.5 pg 27.0-32.0 [facility] MCHC (RBC) [Mass/Vol] 32.8 g/dL 32-36 [facility] Nucleated RBC/100 WBC (Bld) [Ratio] 0 % 0-5 [facility] Platelets (Bld) [#/Vol] 213 10*3/uL 150-450 [facility] Low density lipoprotein (LDL ) cholesterol measurementOrdered By: Francheska Mcdowell on 03-24-2023 Cholesterol in LDL (Body fld) [Moles/Vol] 200 mg/dL 0-130 [facility] No Panel InformationOrdered By: Francheska Mcdowell on 03-24-2023 Estimated GFR (MDRD) Amer 93 mL/min >60 [facility] Comment on above: GFR Calc Estimated GFR (MDRD) Non-Af Amer 77 mL/min >60 [facility] Comment on above: Non- GFR Calc Vitamin D 25-Hydroxy 31.7 ng/mL [facility] Comment on above: Vitamin D 25(OH) Sta tus Range Deficiency <20 ng/mL (50nmol/L) Insufficiency 20 - 30 ng/mL (50 - 75 nmol/L) Sufficiency 30 - 100 ng/mL (75 - 250 nmol/L) Toxicity >100 ng/mL (>250 nmol/L) Platelet mean volume Jaguar-[employer] ker (Bld) [Entitic vol]Ordered By: Francheska Mcdowell on 03-24-2023 Platelet mean volume (Bld) [Entitic vol] 10.1 fL 6.2-12.0 [facility] RBC Auto (Bld) [#/Vol]Ordere d By: Francheska Mcdowell on 03-24-2023 RBC (Bld) [#/Vol] 3.94 10*6/uL 4.2-5.4 [facility] Serum or plasma calcium jo-ann urement (mass/volume)Ordered By: Francheska Mcdowell on 03-24-2023 Calcium [Mass/Vol] 9.4 mg/dL 8.5-10.1 [facility] Serum or plasma creatinine m easurement (mass/volume)Ordered By: Francheska Mcdowell on 03-24-2023 Creatinine [Mass/Vol] 0.78 mg/dL 0.55-1.02 [facility] Comment on above: The validity of the calculated GFR & GFRAA in patients over 70 years has not been determined. Clinical correlation is essential. Serum or plasma thyroid stim ulating hormone (TSH) measurement (units/volume)Ordered By: Francheska Mcdowell on 03-24-2023 TSH Qn 1.36 uIU/mL 0.358-3.74 [facility] Serum or plasma urea nitroge n measurement (mass/volume)Ordered By: Francheska Mcdowell on 03-24-2023 Urea nitrogen [Mass/Vol] 24 mg/dL 7-18 [facility] Thin prep Papanicolaou smear with manual screeningOrdered By: Francheska Mcdowell on 03-24-2023 Thin prep Papanicolaou smear with manual screening 3.7 g/dL 3.2-5.0 [facility] Thin prep Papanicolaou smear with manual screening 18 U/L 15-37 [facility] Thin prep Papanicolaou smear with manual screening 5 5-15 [facility] Very low density lipoprotein (VLDL) cholesterol measurementOrdered By: Francheska Mcdowell on 03-24-2023 Cholesterol in VLDL Calc [Moles/Vol] 43 mg/dL 5-40 [facility] Absolute lymphocyte countOrd ered By: Francheska Mcdowell on 12-27-2022 Lymphocytes Auto (Unsp spec) [#/Vol] 1.32 10*3/uL 0.83-4.51 [facility] Basophil percentageOrdered B y: Francheska Mcdowell on 12-27-2022 Basophils/100 WBC (Bld) 0.9 % 0-1 [facility] Bilirubin [Mass/Vol] 0.40 mg/dL 0.20-1.00 [facility] Comment on above: For patients on eltr ombopag therapy, use of Dimension Pollard TBIL is not recommended. Chloride [Moles/Vol] 106 mmol/L 98-107 [facility] Eosinophils/100 WBC (Bld) 2.8 % 0-5 [facility] Glucose [Mass/Vol] 131 mg/dL 74-106 [facility] Comment on above: Fasting Glucose resu lt greater than or equal to 126 mg/dL suggests DIABETES MELLITUS per A.D.A. criteria. Neutrophils (Bld) [#/Vol] 3.4 10*3/uL 2.0-7.7 [facility] Neutrophils/100 WBC (Bld) 62.7 % 47-70 [facility] Potassium [Moles/Vol] 4.1 mmol/L 3.5-5.1 [facility] Protein [Mass/Vol] 7.4 g/dL 6.4-8.2 [facility] Sodium [Moles/Vol] 139 mmol/L 136-145 [facility] WBC (Bld) [#/Vol] 5.4 10*3/uL 4.4-11.0 [facility] Blood erythrocytes count (nu mber/volume)Ordered By: Francheska Mcdowell on 12-27-2022 RBC (Bld) [#/Vol] 4.02 10*6/uL 4.2-5.4 [facility] Blood hemoglobin measurement (mass/volume)Ordered By: Francheska Mcdowell on 12-27-2022 Hemoglobin (Bld) [Mass/Vol] 12.8 g/dL 12.0-15.0 [facility] Blood lymphocytes/100 leukoc ytesOrdered By: Francheska Mcdowell on 12-27-2022 Lymphocytes/100 WBC (Bld) 24.5 % 19-41 [facility] Blood monocytes/100 leukocyt esOrdered By: Francheska Mcdowell on 12-27-2022 Monocytes/100 WBC (Bld) 8.9 % 0-10 [facility] Blood platelet mean volumeOr dered By: Francheska Mcdowell on 12-27-2022 Platelet mean volume (Bld) [Entitic vol] 10.3 fL 6.2-12.0 [facility] Determination of erythrocyte mean corpuscular volume (MCV)Ordered By: Francheska Mcdowell on 12-27-2022 MCV (RBC) [Entitic vol] 98.5 fL 81-99 [facility] Hematocrit Auto (Bld) [Volum e fraction]Ordered By: Francheska Mcdowell on 12-27-2022 Hematocrit (Bld) [Volume fraction] 39.6 % 37-47 [facility] Laboratory - Chemistry and C hemistry - challengeOrdered By: Francheska Mcdowell on 12-27-2022 ALP [Catalytic activity/Vol] 68 U/L 45-117 [facility] ALT [Catalytic activity/Vol] 25 U/L 13-56 [facility] CO2 [Moles/Vol] 27.0 mmol/L 21.0-32.0 [facility] Globulin (S) [Mass/Vol] 3.5 g/dL 2.2-4.2 [facility] Urea nitrogen/Creatinine [Mass ratio] 36.7 mg/mg 10-20 [facility] Laboratory - Hematology and Cell countsOrdered By: Francheska Mcdowell on 12-27-2022 Erythrocyte distribution width (RBC) [Entitic vol] 51.1 fL 35.1-43.9 [facility] Erythrocyte distribution width (RBC) [Ratio] 13.9 % 11.6-14.6 [facility] Immature granulocytes/100 WBC (Bld) 0.200 % 0.0-0.9 [facility] Comment on above: IG% - Immature Granu locytes (promyelocytes, myelocytes and metamyelocytes) > 1% indicates that a LEFT SHIFT is Present. MCH (RBC) [Entitic mass] 31.8 pg 27.0-32.0 [facility] Nucleated RBC/100 WBC (Bld) [Ratio] 0 % 0-5 [facility] MCHC Auto (RBC) [Mass/Vol]Or dered By: Francheska Mcdowell on 12-27-2022 MCHC (RBC) [Mass/Vol] 32.3 g/dL 32-36 [facility] No Panel InformationOrdered By: Francheska Mcdowell on 12-27-2022 Estimated GFR (MDRD) Amer 100 mL/min >60 [facility] Comment on above: GFR Calc Estimated GFR (MDRD) Non-Af Amer 82 mL/min >60 [facility] Comment on above: Non- GFR Calc Platelets bldOrdered By: Kishan Mcdowell on 12-27-2022 Platelets (Bld) [#/Vol] 227 10*3/uL 150-450 [facility] Serum or plasma albumin jo-ann urement (mass/volume)Ordered By: Francheska Mcdowell on 12-27-2022 Albumin [Mass/Vol] 3.9 g/dL 3.2-5.0 [facility] Serum or plasma albumin/glob ulin mass ratioOrdered By: Francheska Mcdowell on 12-27-2022 Albumin/Globulin [Mass ratio] 1.1 {ratio} 0.9-2.4 [facility] Serum or plasma calcium jo-ann urement (mass/volume)Ordered By: Francheska Mcdowell on 12-27-2022 Calcium [Mass/Vol] 9.5 mg/dL 8.5-10.1 [facility] Serum or plasma creatinine m easurement (mass/volume)Ordered By: Francheska Mcdowell on 12-27-2022 Creatinine [Mass/Vol] 0.74 mg/dL 0.55-1.02 [facility] Comment on above: The validity of the calculated GFR & GFRAA in patients over 70 years has not been determined. Clinical correlation is essential. Serum or plasma urea nitroge n measurement (mass/volume)Ordered By: Francheska Mcdowell on 12-27-2022 Urea nitrogen [Mass/Vol] 27 mg/dL 7-18 [facility] Thin prep Papanicolaou smear with manual screeningOrdered By: Francheska Mcdowell on 12-27-2022 Thin prep Papanicolaou smear with manual screening 16 U/L 15-37 [facility] Thin prep Papanicolaou smear with manual screening 6 5-15 [facility] Basophil percentageOrdered B y: Francheska Mcdowell on 12-18-2022 Cholesterol [Mass/Vol] 211 mg/dL <200 [facility] Comment on above: <200 mg/dL Desirable 200-240 mg/dL Borderline >240 mg/dL High Risk Testosterone [Mass/Vol] 7 ng/dL 3-67 [facility] Triglyceride [Mass/Vol] 108 mg/dL <199 [facility] Comment on above: The drugs N-Acetylcy steine and Metamizole may falsely depress this assay.Serum Triglycerides Reference Interval Normal <150 mg/dL Borderline high 150 - 199 mg/dL High 200 - 499 mg/dL Very High > or = 500 mg/dL Free testosterone percentage Ordered By: Francheska Mcdowell on 12-18-2022 Testosterone Free/Testosterone.total [Mass fraction] 2.56 % 0.50-2.80 [facility] Comment on above: Performed at: [address] [id number] Director: Mitchell Wilde PhD, Phone: [phone] at: [facility] [id number] Director: Silke Villarreal MD, Phone: [phone] Serum or plasma cholesterol in HDL measurement (mass/volume)Ordered By: Francheska Mcdowell on 12-18-2022 Cholesterol in HDL [Mass/Vol] 88 mg/dL >40 [facility] Comment on above: The drugs N-Acetylcy steine and Metamizole may falsely depress this assay. Reference Range HDL <40 mg/dL Low HDL Cholesterol HDL >or= 60 mg/dL High HDL Cholesterol Serum or plasma cholesterol in VLDL measurement (mass/volume)Ordered By: Francheska Mcdowell on 12-18-2022 Cholesterol in VLDL [Mass/Vol] 22 mg/dL 5-40 [facility] Serum or plasma low density lipoprotein (LDL) cholesterol measurement (mass/volume)Ordered By: Francheska Mcdowell on 12-18-2022 Cholesterol in LDL [Mass/Vol] 101 mg/dL 0-130 [facility] Serum or plasma testosterone free measurement (mass/volume)Ordered By: Francheska Mcdowell on 12-18-2022 Testosterone Free [Mass/Vol] 0.18 ng/dL 0.10-0.85 [facility] Whole blood hemoglobin A1c/t otal hemoglobin ratio (mass fraction)Ordered By: Francheska Mcdowell on 12-18-2022 HbA1c (Bld) [Mass fraction] 5.4 % 3.8-5.6 [facility] Comment on above: Normal < 5.7 % Predi abetic 5.7 - 6.4 % Diabetic >or= 6.5 % Please note range changes. Absolute lymphocyte countOrd ered By: Francheska Mcdowell on 07-31-2022 Lymphocytes Auto (Unsp spec) [#/Vol] 1.47 10*3/uL 0.83-4.51 [facility] Basophil percentageOrdered B y: Francheska Mcdowell on 07-31-2022 Basophils/100 WBC (Bld) 0.8 % 0-1 [facility] Eosinophils/100 WBC (Bld) 5.9 % 0-5 [facility] Neutrophils (Bld) [#/Vol] 3.6 10*3/uL 2.0-7.7 [facility] Neutrophils/100 WBC (Bld) 58.2 % 47-70 [facility] WBC (Bld) [#/Vol] 6.1 10*3/uL 4.4-11.0 [facility] Blood erythrocytes count (nu mber/volume)Ordered By: Francheska Mcdowell on 07-31-2022 RBC (Bld) [#/Vol] 3.82 10*6/uL 4.2-5.4 [facility] Blood hemoglobin measurement (mass/volume)Ordered By: Francheska Mcdowell on 07-31-2022 Hemoglobin (Bld) [Mass/Vol] 11.6 g/dL 12.0-15.0 [facility] Blood lymphocytes/100 leukoc ytesOrdered By: Francheska Mcdowell on 07-31-2022 Lymphocytes/100 WBC (Bld) 24.0 % 19-41 [facility] Blood monocytes/100 leukocyt esOrdered By: Francheska Mcdowell on 07-31-2022 Monocytes/100 WBC (Bld) 10.9 % 0-10 [facility] Blood platelet mean volumeOr dered By: Francheska Mcdowell on 07-31-2022 Platelet mean volume (Bld) [Entitic vol] 10.1 fL 6.2-12.0 [facility] Determination of erythrocyte mean corpuscular volume (MCV)Ordered By: Francheska Mcdowell on 07-31-2022 MCV (RBC) [Entitic vol] 99.2 fL 81-99 [facility] Hematocrit Auto (Bld) [Volum e fraction]Ordered By: Francheska Mcdowell on 07-31-2022 Hematocrit (Bld) [Volume fraction] 37.9 % 37-47 [facility] Hemoglobin in reticulocytes (mass per reticulocyte)Ordered By: Francheska Mcdowell on 07-31-2022 Hemoglobin (Reticulocytes) [Entitic mass] 33.7 pg 30-35 [facility] Laboratory - Hematology and Cell countsOrdered By: Francheska Mcdowell on 07-31-2022 Erythrocyte distribution width (RBC) [Entitic vol] 49.6 fL 35.1-43.9 [facility] Erythrocyte distribution width (RBC) [Ratio] 13.6 % 11.6-14.6 [facility] Immature granulocytes/100 WBC (Bld) 0.200 % 0.0-0.9 [facility] Comment on above: IG% - Immature Granu locytes (promyelocytes, myelocytes and metamyelocytes) > 1% indicates that a LEFT SHIFT is Present. MCH (RBC) [Entitic mass] 30.4 pg 27.0-32.0 [facility] Nucleated RBC/100 WBC (Bld) [Ratio] 0 % 0-5 [facility] MCHC Auto (RBC) [Mass/Vol]Or dered By: Francheska Mcdowell on 07-31-2022 MCHC (RBC) [Mass/Vol] 30.6 g/dL 32-36 [facility] No Panel InformationOrdered By: Francheska Mcdowell on 07-31-2022 Immature Reticulocyte Fraction 10.20 % 3.00-15.90 [facility] Reticulocyte Count 1.20 % 0.5-1.5 [facility] Platelets bldOrdered By: Kishan Mcdowell on 07-31-2022 Platelets (Bld) [#/Vol] 223 10*3/uL 150-450 [facility] Absolute lymphocyte countOrd ered By: Francheska Mcdowell on 06-21-2022 Lymphocytes Auto (Unsp spec) [#/Vol] 0.96 10*3/uL 0.83-4.51 [facility] Basophil percentageOrdered B y: Francheska Mcdowell on 06-21-2022 Basophils/100 WBC (Bld) 0.9 % 0-1 [facility] Bilirubin [Mass/Vol] 0.40 mg/dL 0.20-1.00 [facility] Comment on above: For patients on eltr ombopag therapy, use of Dimension Pollard TBIL is not recommended. Chloride [Moles/Vol] 108 mmol/L 98-107 [facility] Cholesterol [Mass/Vol] 164 mg/dL <200 [facility] Comment on above: <200 mg/dL Desirable 200-240 mg/dL Borderline >240 mg/dL High Risk Eosinophils/100 WBC (Bld) 2.7 % 0-5 [facility] Glucose [Mass/Vol] 123 mg/dL 74-106 [facility] Comment on above: Fasting Glucose resu lt from 100 to 125 mg/dL suggests IMPAIRED HOMEOSTASIS per A.D.A. criteria. Neutrophils (Bld) [#/Vol] 3.9 10*3/uL 2.0-7.7 [facility] Neutrophils/100 WBC (Bld) 69.9 % 47-70 [facility] Potassium [Moles/Vol] 3.7 mmol/L 3.5-5.1 [facility] Protein [Mass/Vol] 7.0 g/dL 6.4-8.2 [facility] Sodium [Moles/Vol] 138 mmol/L 136-145 [facility] Triglyceride [Mass/Vol] 149 mg/dL <199 [facility] Comment on above: The drugs N-Acetylcy steine and Metamizole may falsely depress this assay.Serum Triglycerides Reference Interval Normal <150 mg/dL Borderline high 150 - 199 mg/dL High 200 - 499 mg/dL Very High > or = 500 mg/dL WBC (Bld) [#/Vol] 5.6 10*3/uL 4.4-11.0 [facility] Blood erythrocytes count (nu mber/volume)Ordered By: Francheska Mcdowell on 06-21-2022 RBC (Bld) [#/Vol] 3.62 10*6/uL 4.2-5.4 [facility] Blood hemoglobin measurement (mass/volume)Ordered By: Francheska Mcdowell on 06-21-2022 Hemoglobin (Bld) [Mass/Vol] 11.2 g/dL 12.0-15.0 [facility] Blood lymphocytes/100 leukoc ytesOrdered By: Francheska Mcdowell on 06-21-2022 Lymphocytes/100 WBC (Bld) 17.2 % 19-41 [facility] Blood monocytes/100 leukocyt esOrdered By: Francheska Mcdowell on 06-21-2022 Monocytes/100 WBC (Bld) 8.8 % 0-10 [facility] Blood platelet mean volumeOr dered By: Francheska Mcdowell on 06-21-2022 Platelet mean volume (Bld) [Entitic vol] 10.4 fL 6.2-12.0 [facility] Determination of erythrocyte mean corpuscular volume (MCV)Ordered By: Francheska Mcdowell on 06-21-2022 MCV (RBC) [Entitic vol] 98.9 fL 81-99 [facility] Hematocrit Auto (Bld) [Volum e fraction]Ordered By: Francheska Mcdowell on 06-21-2022 Hematocrit (Bld) [Volume fraction] 35.8 % 37-47 [facility] Laboratory - Chemistry and C hemistry - challengeOrdered By: Francheska Mcdwoell on 06-21-2022 ALP [Catalytic activity/Vol] 69 U/L 45-117 [facility] ALT [Catalytic activity/Vol] 47 U/L 13-56 [facility] CO2 [Moles/Vol] 27.0 mmol/L 21.0-32.0 [facility] Globulin (S) [Mass/Vol] 3.6 g/dL 2.2-4.2 [facility] Urea nitrogen/Creatinine [Mass ratio] 35.7 mg/mg 10-20 [facility] Laboratory - Hematology and Cell countsOrdered By: Francheska Mcdowell on 06-21-2022 Erythrocyte distribution width (RBC) [Entitic vol] 47.7 fL 35.1-43.9 [facility] Erythrocyte distribution width (RBC) [Ratio] 13.3 % 11.6-14.6 [facility] Immature granulocytes/100 WBC (Bld) 0.500 % 0.0-0.9 [facility] Comment on above: IG% - Immature Granu locytes (promyelocytes, myelocytes and metamyelocytes) > 1% indicates that a LEFT SHIFT is Present. MCH (RBC) [Entitic mass] 30.9 pg 27.0-32.0 [facility] Nucleated RBC/100 WBC (Bld) [Ratio] 0 % 0-5 [facility] Auto (RBC) [Mass/Vol]Or dered By: Francheska Mcdowell on 06-21-2022 MCHC (RBC) [Mass/Vol] 31.3 g/dL 32-36 [facility] No Panel InformationOrdered By: Francheska Mcdowell on 06-21-2022 Estimated GFR (MDRD) Amer 116 mL/min >60 [facility] Comment on above: GFR Calc Estimated GFR (MDRD) Non-Af Amer 96 mL/min >60 [facility] Comment on above: Non- GFR Calc Vitamin D 25-Hydroxy 77.5 ng/mL [facility] Comment on above: Vitamin D 25(OH) Sta tus Range Deficiency <20 ng/mL (50nmol/L) Insufficiency 20 - 30 ng/mL (50 - 75 nmol/L) Sufficiency 30 - 100 ng/mL (75 - 250 nmol/L) Toxicity >100 ng/mL (>250 nmol/L) Platelets bldOrdered By: Kishan Mcdowell on 06-21-2022 Platelets (Bld) [#/Vol] 206 10*3/uL 150-450 [facility] Serum or plasma albumin jo-ann urement (mass/volume)Ordered By: Francheska Mcdowell on 06-21-2022 Albumin [Mass/Vol] 3.4 g/dL 3.2-5.0 [facility] Serum or plasma albumin/glob ulin mass ratioOrdered By: Francheska Mcdowell on 06-21-2022 Albumin/Globulin [Mass ratio] 0.9 {ratio} 0.9-2.4 [facility] Serum or plasma calcium jo-ann urement (mass/volume)Ordered By: Francheska Mcdowell on 06-21-2022 Calcium [Mass/Vol] 9.5 mg/dL 8.5-10.1 [facility] Serum or plasma cholesterol in HDL measurement (mass/volume)Ordered By: Francheska Mcdowell on 06-21-2022 Cholesterol in HDL [Mass/Vol] 61 mg/dL >40 [facility] Comment on above: The drugs N-Acetylcy steine and Metamizole may falsely depress this assay. Reference Range HDL <40 mg/dL Low HDL Cholesterol HDL >or= 60 mg/dL High HDL Cholesterol Serum or plasma cholesterol in VLDL measurement (mass/volume)Ordered By: Francheska Mcdowell on 06-21-2022 Cholesterol in VLDL [Mass/Vol] 30 mg/dL 5-40 [facility] Serum or plasma creatinine m easurement (mass/volume)Ordered By: Francheska Mcdowell on 06-21-2022 Creatinine [Mass/Vol] 0.64 mg/dL 0.55-1.02 [facility] Comment on above: The validity of the calculated GFR & GFRAA in patients over 70 years has not been determined. Clinical correlation is essential. Serum or plasma low density lipoprotein (LDL) cholesterol measurement (mass/volume)Ordered By: Francheska Mcdowell on 06-21-2022 Cholesterol in LDL [Mass/Vol] 73 mg/dL 0-130 [facility] Serum or plasma urea nitroge n measurement (mass/volume)Ordered By: Francheska Mcdoewll on 06-21-2022 Urea nitrogen [Mass/Vol] 23 mg/dL 7-18 [facility] Thin prep Papanicolaou smear with manual screeningOrdered By: Francheska Mcdowell on 06-21-2022 Thin prep Papanicolaou smear with manual screening 26 U/L 15-37 [facility] Thin prep Papanicolaou smear with manual screening 3 5-15 [facility] HgA1C , Office ([phone])Ordere d By: Isabelle Martin on 06-19-2022 HbA1c (Bld) [Mass fraction] 5.7 % Normal 4.6 - 7.1 [facility] Work Phone: Basophil percentageon 2021 Cholesterol [Mass/Vol] 251 mg/dL <200 [facility] Work Phone: Comment on above: <200 mg/dL Desirable 200-240 mg/dL Borderline >240 mg/dL High Risk Triglyceride [Mass/Vol] 212 mg/dL <199 [facility] Work Phone: Comment on above: The drugs N-Acetylcy steine and Metamizole may falsely depress this assay.Serum Triglycerides Reference Interval Normal <150 mg/dL Borderline high 150 - 199 mg/dL High 200 - 499 mg/dL Very High > or = 500 mg/dL No Panel Informationon 01-04 Thyroid Stimulating Hormone (TSH) 1.05 uIU/mL 0.358-3.74 [facility] Work Phone: Serum or plasma cholesterol in HDL measurement (mass/volume)on 01-04-2022 Cholesterol in HDL [Mass/Vol] 63 mg/dL >40 [facility] Work Phone: Comment on above: The drugs N-Acetylcy steine and Metamizole may falsely depress this assay. Reference Range HDL <40 mg/dL Low HDL Cholesterol HDL >or= 60 mg/dL High HDL Cholesterol Serum or plasma cholesterol in VLDL measurement (mass/volume)on 01-04-2022 Cholesterol in VLDL [Mass/Vol] 42 mg/dL 5-40 [facility] Work Phone: Serum or plasma low density lipoprotein (LDL) cholesterol measurement (mass/volume)on 01-04-2022 Cholesterol in LDL [Mass/Vol] 146 mg/dL 0-130 [facility] Work Phone: Blood Glucose , Office [phone])Ordered By: Cha Fulton on 12-31-2021 Glucose Glucometer (BldC) [Moles/Vol] 94 1 Normal [facility] Work Phone: HgA1C , Office ([phone])Ordere d By: Cha Fulton on 12-31-2021 HbA1c (Bld) [Mass fraction] 5.5 % Normal 4.6 - 7.1 [facility] Work Phone: CNOVivka 09-10-2021 [facility] Office Visit (FAMMAS) MARGARET BRASWELL ([id number]) 1950 F T Date Time Provider Department 09/10/21 1:00 PM GANESH ADHIKARI During your visit today, we recorded the following information about you: Temperature Pulse Respiration Blood pressure 97.1 degrees 74/minute 14/minute 120/62 Weight Height 68.5 kg 1.6 m Ganesh Adhikari MD 09/10/2021 1:35 PM Signed This note was created using Spotjournalriter. Subjective Margaret Braswell is a 71 year old female. HPI Review of Systems Objective BP 120/62 Pulse 74 Temp 36.2 ?C (97.1 ?F) (Temporal) Resp 14 Ht 160 cm (5' 3) Wt 68.5 kg (151 lb) SpO2 98% BMI 26.75 kg/m? Physical Exam Assessment and Plan Ganesh Adhikari MD 09/10/2021 1:35 PM Signed This note was created using Alkermes. Subjective Margaret Braswell is a 71 year [...] Negative. Genitourinary: Negative. Musculoskeletal: Negative. Skin: Negative. Allergic/Immunologic : Negative. Neurological: Negative. Hematological: Negative. Psychiatric/Behavior al: Negative. Objective BP 120/62 Pulse 74 Temp 36.2 ?C (97.1 ?F) (Temporal) Resp 14 Ht 160 cm (5' 3) Wt 68.5 kg (151 lb) SpO2 98% [...] PANEL; Future Prediabetes - HGB A1C; Future Referring Provider: SELF [200] Allergies As of Date: 09/10/2021 (No Known Allergies) Date Reviewed: 09/10/2021 Reviewed by: Lorene Foss LPN - Fully Assessed Reason for Visit: 6 Month Exam [189] Cmt: f/u for htn and other medical problems pt has complaints of a tickle in her throat that makes her cough for a year Primary Visit Diagnosis:Mixed hyperlipidemia [E78.2] Other Visit Diagnoses:Hypertensi on, benign [I10] Encounter for medication monitoring [Z51.81] Prediabetes [R73.03] Order(s):CBC + DIFF [SQCBCDIF] Order #: [id number] FUTURE LIPID PANEL BASIC [SQLIPB] Order #: [id number] FUTURE COMP METABOLIC PANEL [SQCMP] Order #: [id number] FUTURE HGB A1C [NBSAP0Z] Order #: [id number] FUTURE Prescriptions as of 09/10/2021 - simvastatin (ZOCOR) 20 mg tablet Take 1 tablet by mouth once daily. - multivitamin with folic acid (ONE DAILY MULTIVITAMIN) 400 mcg Take by mouth. - melatonin 3 mg tablet Take 2 tablets by mouth daily at bedtime. - hydrOXYchloroQUINE (PLAQUENIL) 200 mg tablet Take 1 tablet by mouth one time a week. - Cholecalciferol, Vitamin D3, 125 mcg (5,000 unit) cap Take 1 capsule by mouth once daily. - ascorbic acid, time released (VITAMIN C) 500 mg TbER Take 1 tablet by mouth once daily. - SELENIUM ORAL Take 1 tablet by mouth once daily. - METOPROLOL SUCCINATE XL, LONG ACTING, 50 mg 24 hr tablet once daily. Problem List As Of Date 09/10/2021 Noted Resolved Screening for other and unspecified cardiovascu*02/16/20 Colon cancer screening [Z12.11] 01/27/2019 Visit for screening mammogram [Z12.31] 01/26/2018 Hyperglycemia [R73.9] 03/07/2021 Hyperlipidemia [E78.5] 10/03/2016 Hypertension, benign [I10] 10/03/2016 Infectious disease contact [Z20.9] 08/16/2020 Lightheadedness [R42] 08/02/2019 Near syncope [R55] 08/02/2019 Obstructive sleep apnea [G47.33] 10/03/2016 Osteopenia [M85.80] 10/03/2016 Vitamin D deficien (more content not included)... Normal [facility] Absolute lymphocyte counton 03-09-2021 Lymphocytes Auto (Unsp spec) [#/Vol] 1.03 10*3/uL 0.83-4.51 [facility] Work Phone: Basophil percentageon 2021 Basophils/100 WBC (Bld) 0.8 % 0-1 [facility] Work Phone: Bilirubin [Mass/Vol] 0.40 mg/dL 0.20-1.00 [facility] Work Phone: Comment on above: For patients on eltr ombopag therapy, use of Dimension Pollard TBIL is not recommended. Chloride [Moles/Vol] 108 mmol/L 98-107 [facility] Work Phone: Cholesterol [Mass/Vol] 228 mg/dL <200 [facility] Work Phone: Comment on above: <200 mg/dL Desirable 200-240 mg/dL Borderline >240 mg/dL High Risk Eosinophils/100 WBC (Bld) 3.1 % 0-5 [facility] Work Phone: Glucose [Mass/Vol] 119 mg/dL 74-106 [facility] Work Phone: Comment on above: Fasting Glucose resu lt from 100 to 125 mg/dL suggests IMPAIRED HOMEOSTASIS per A.D.A. criteria. Neutrophils (Bld) [#/Vol] 3.4 10*3/uL 2.0-7.7 [facility] Work Phone: Neutrophils/100 WBC (Bld) 65.7 % 47-70 [facility] Work Phone: Potassium [Moles/Vol] 4.3 mmol/L 3.5-5.1 [facility] Work Phone: Protein [Mass/Vol] 7.3 g/dL 6.4-8.2 [facility] Work Phone: Sodium [Moles/Vol] 140 mmol/L 136-145 [facility] Work Phone: Triglyceride [Mass/Vol] 145 mg/dL [facility] Work Phone: Comment on above: The drugs N-Acetylcy steine and Metamizole may falsely depress this assay.Serum Triglycerides Reference Interval Normal <150 mg/dL Borderline high 150 - 199 mg/dL High 200 - 499 mg/dL Very High > or = 500 mg/dL WBC (Bld) [#/Vol] 5.1 10*3/uL 4.4-11.0 [facility] Work Phone: Blood erythrocytes count (nu mber/volume)on 03-09-2021 RBC (Bld) [#/Vol] 3.99 10*6/uL 4.2-5.4 [facility] Work Phone: Blood hemoglobin measurement (mass/volume)on 03-09-2021 Hemoglobin (Bld) [Mass/Vol] 12.7 g/dL 12.0-15.0 [facility] Work Phone: Blood lymphocytes/100 leukoc yteson 03-09-2021 Lymphocytes/100 WBC (Bld) 20.1 % 19-41 [facility] Work Phone: Blood monocytes/100 leukocyt eson 03-09-2021 Monocytes/100 WBC (Bld) 9.9 % 0-10 [facility] Work Phone: Blood platelet mean volumeon 03-09-2021 Platelet mean volume (Bld) [Entitic vol] 9.8 fL 6.2-12.0 [facility] Work Phone: Determination of erythrocyte mean corpuscular volume (MCV)on 03-09-2021 MCV (RBC) [Entitic vol] 97.7 fL 81-99 [facility] Work Phone: Hematocrit Auto (Bld) [Volum e fraction]on 03-09-2021 Hematocrit (Bld) [Volume fraction] 39.0 % 37-47 [facility] Work Phone: Laboratory - Chemistry and C hemistry - challengeon 03-09-2021 ALP [Catalytic activity/Vol] 56 U/L 45-117 [facility] Work Phone: ALT [Catalytic activity/Vol] 38 U/L 13-56 [facility] Work Phone: CO2 [Moles/Vol] 29.0 mmol/L 21.0-32.0 [facility] Work Phone: Globulin (S) [Mass/Vol] 3.6 g/dL 2.2-4.2 [facility] Work Phone: Urea nitrogen/Creatinine [Mass ratio] 19.6 mg/mg 10-20 [facility] Work Phone: Laboratory - Hematology and Cell countson 03-09-2021 Erythrocyte distribution width (RBC) [Entitic vol] 45.4 fL 35.1-43.9 [facility] Work Phone: Erythrocyte distribution width (RBC) [Ratio] 12.8 % 11.6-14.6 [facility] Work Phone: Immature granulocytes/100 WBC (Bld) 0.400 % 0.0-0.9 [facility] Work Phone: Comment on above: IG% - Immature Granu locytes (promyelocytes, myelocytes and metamyelocytes) > 1% indicates that a LEFT SHIFT is Present. MCH (RBC) [Entitic mass] 31.8 pg 27.0-32.0 [facility] Work Phone: Nucleated RBC/100 WBC (Bld) [Ratio] 0 % 0-5 [facility] Work Phone: MCHC Auto (RBC) [Mass/Vol]on 03-09-2021 MCHC (RBC) [Mass/Vol] 32.6 g/dL 32-36 [facility] Work Phone: No Panel Informationon 03-09 Estimated GFR (MDRD) Amer 95 mL/min >60 [facility] Work Phone: Comment on above: GFR Calc Estimated GFR (MDRD) Non-Af Amer 79 mL/min >60 [facility] Work Phone: Comment on above: Non- GFR Calc Vitamin D 25-Hydroxy 28.8 ng/mL [facility] Work Phone: Comment on above: Vitamin D 25(OH) Sta tus Range Deficiency <20 ng/mL (50nmol/L) Insufficiency 20 - 30 ng/mL (50 - 75 nmol/L) Sufficiency 30 - 100 ng/mL (75 - 250 nmol/L) Toxicity >100 ng/mL (>250 nmol/L) Platelets bldon 03-09-2021 Platelets (Bld) [#/Vol] 211 10*3/uL 150-450 [facility] Work Phone: Serum or plasma albumin jo-ann urement (mass/volume)on 03-09-2021 Albumin [Mass/Vol] 3.7 g/dL 3.2-5.0 [facility] Work Phone: Serum or plasma albumin/glob ulin mass ratioon 03-09-2021 Albumin/Globulin [Mass ratio] 1.0 {ratio} 0.9-2.4 [facility] Work Phone: Serum or plasma calcium jo-ann urement (mass/volume)on 03-09-2021 Calcium [Mass/Vol] 9.2 mg/dL 8.5-10.1 [facility] [facility] Work Phone: Serum or plasma cholesterol in HDL measurement (mass/volume)on 03-09-2021 Cholesterol in HDL [Mass/Vol] 74 mg/dL [facility] Work Phone: Comment on above: The drugs N-Acetylcy steine and Metamizole may falsely depress this assay. Reference Range HDL <40 mg/dL Low HDL Cholesterol HDL >or= 60 mg/dL High HDL Cholesterol Serum or plasma cholesterol in VLDL measurement (mass/volume)on 03-09-2021 Cholesterol in VLDL [Mass/Vol] 29 mg/dL 5-40 [facility] Work Phone: Serum or plasma creatinine m easurement (mass/volume)on 03-09-2021 Creatinine [Mass/Vol] 0.77 mg/dL 0.55-1.02 [facility] Work Phone: Comment on above: The validity of the calculated GFR & GFRAA in patients over 70 years has not been determined. Clinical correlation is essential. Serum or plasma low density lipoprotein (LDL) cholesterol measurement (mass/volume)on 03-09-2021 Cholesterol in LDL [Mass/Vol] 125 mg/dL 0-130 [facility] Work Phone: Serum or plasma urea nitroge n measurement (mass/volume)on 03-09-2021 Urea nitrogen [Mass/Vol] 15 mg/dL 7-18 [facility] Work Phone: Thin prep Papanicolaou smear with manual screeningon 03-09-2021 Thin prep Papanicolaou smear with manual screening 20 U/L 15-37 [facility] Work Phone: Thin prep Papanicolaou smear with manual screening 3 5-15 [facility] Work Phone: Whole blood hemoglobin A1c/t otal hemoglobin ratio (mass fraction)on 03-09-2021 HbA1c (Bld) [Mass fraction] 5.7 % 3.8-5.6 [facility] Work Phone: Comment on above: Normal < 5.7 % Predi abetic 5.7 - 6.4 % Diabetic >or= 6.5 % Please note range changes. Office Visit: UC: L rib pain on 10-31-2016 Documentation of current medications (procedure) Done Invalid Interpretation Code [facility] Work Phone: Fall risk assessment No Invalid Interpretation Code [facility] Work Phone: Office Visit: UC: Bronchitis on 07-16-2016 Documentation of current medications (procedure) Done Invalid Interpretation Code [facility] Work Phone: Fall risk assessment No [facility] Work Phone: Tobacco smoking status NHIS Never smoker [facility] Work Phone: Tobacco use CPHS Never smoker Invalid Interpretation Code [facility] Work Phone: Vital Signs Date Time Vital Sign Value Performing Clinician Facility 07-08-2024 14:10-0400 Body height 160.02 cm Francheska Mcdowell INDUSTRIAL MACHINE ASSEMBLER-C Work Phone: [facility] 07-08-2024 14:10-0400 Body mass index (BMI) [Ratio] 26.5 kg/m2 Francheska Mcdowell INDUSTRIAL MACHINE ASSEMBLER-C Work Phone: [facility] 07-08-2024 14:10-0400 Body temperature 98.5 [degF] Francheska Mcdowell INDUSTRIAL MACHINE ASSEMBLER-C Work Phone: [facility] 07-08-2024 14:10-0400 Body weight 68.03 kg Francheska Mcdowell INDUSTRIAL MACHINE ASSEMBLER-C Work Phone: [facility] 07-08-2024 14:10-0400 Diastolic blood pressure 82 mm[Hg] Francheska Mcdowell INDUSTRIAL MACHINE ASSEMBLER-C Work Phone: [facility] 07-08-2024 14:10-0400 Heart rate 65 /min Francheska Mcdowell INDUSTRIAL MACHINE ASSEMBLER-C Work Phone: [facility] 07-08-2024 14:10-0400 Respiratory rate 14 /min Francheska Quanam INDUSTRIAL MACHINE ASSEMBLER-C Work Phone: [facility] 07-08-2024 14:10-0400 SaO2% (BldA) [Mass fraction] 96 % Francheska Mcdowell INDUSTRIAL MACHINE ASSEMBLER-C Work Phone: [facility] 07-08-2024 14:10-0400 Systolic blood pressure 152 mm[Hg] Francheska Mcdowell INDUSTRIAL MACHINE ASSEMBLER-C Work Phone: [facility] 04-25-2023 13:44-0500 Body height 160.02 cm INDUSTRIAL MACHINE ASSEMBLER-C Francheska Jeremias Work Phone: [facility] 04-25-2023 13:44-0500 Body mass index (BMI) [Ratio] 27.1 kg/m2 INDUSTRIAL MACHINE ASSEMBLER-C Francheska Jeremias Work Phone: [facility] 04-25-2023 13:44-0500 Body temperature 97.9 [degF] INDUSTRIAL MACHINE ASSEMBLER-C Francheska Jeremias Work Phone: [facility] 04-25-2023 13:44-0500 Body weight 69.62 kg INDUSTRIAL MACHINE ASSEMBLER-C Francheska Jeremias Work Phone: [facility] 04-25-2023 13:44-0500 Diastolic blood pressure 70 mm[Hg] INDUSTRIAL MACHINE ASSEMBLER-C Francheska Jeremias Work Phone: [facility] 04-25-2023 13:44-0500 Heart rate 73 /min INDUSTRIAL MACHINE ASSEMBLER-C Francheska Jeremias Work Phone: [facility] 04-25-2023 13:44-0500 Respiratory rate 17 /min INDUSTRIAL MACHINE ASSEMBLER-C Francheska Jeremias Work Phone: [facility] 04-25-2023 13:44-0500 SaO2% (BldA) [Mass fraction] 99 % INDUSTRIAL MACHINE ASSEMBLER-C Francheska Jeremias Work Phone: [facility] 04-25-2023 13:44-0500 Systolic blood pressure 142 mm[Hg] INDUSTRIAL MACHINE ASSEMBLER-C Francheska Jeremias Work Phone: [facility] 12-24-2022 13:40-0400 Body height 160.02 cm Isabelle [...] Internal [facility]; [facility] Work Phone: Comment on above: Patient Position: Sitting; Cuff Location : Left Arm; Cuff Size: Standard 12-24-2022 13:40-0400 Heart rate 54 /min Isabelle Martin MA [facility] Work Phone: Comment on above: Pattern: Regular 12-24-2022 13:40-0400 SaO2% (BldA) [Mass fraction] 99 % Isabelle Martin MA [facility]; [facility] Work Phone: Comment on above: Room air 12-24-2022 13:40-0400 Systolic blood pressure 132 mm[Hg] Isabelle Martin MA [facility]; [facility] Work Phone: Comment on above: Patient Position: Sitting; Cuff Location : Left Arm; Cuff Size: Standard 07-09-2022 14:58-0400 Body height 160.02 cm [facility] 06-19-2022 08:15-0400 Body height 160.02 cm Isabelle Martin MA [facility]; [facility] Work Phone: 06-19-2022 08:15-0400 Body mass index (BMI) [Ratio] 25.55 kg/m2 Isabelle Martin MA [facility]; [facility] Work Phone: 06-19-2022 08:15-0400 Body mass index (BMI) [Ratio] 26.08 kg/m2 Isabelle Martin MA [facility]; [facility] Work Phone: 06-19-2022 08:15-0400 Body surface area Derived from formula 1.68 m2 Isabelle Martin MA [facility]; [facility] Work Phone: 06-19-2022 08:15-0400 Body surface area Derived from formula 1.7 m2 Isabelle Martin MA [facility]; [facility] Work Phone: 06-19-2022 08:15-0400 Body temperature 96.2 [degF] Isabelle Martin MA [facility]; [facility] Work Phone: 06-19-2022 08:15-0400 Body weight 65.43 kg Isabelle Martin MA [facility]; [facility] Work Phone: 06-19-2022 08:15-0400 Body weight 66.79 kg Isabelle Martin MA [facility]; [facility] Work Phone: 06-19-2022 08:15-0400 Diastolic blood pressure 70 mm[Hg] Isabelle Martin MA [facility]; [facility] Work Phone: Comment on above: Patient Position: Sitting; Cuff Location : Left Arm; Cuff Size: Standard 06-19-2022 08:15-0400 Heart rate 53 /min Isabelle Martin MA [facility]; [facility] Work Phone: Comment on above: Pattern: Regular 06-19-2022 08:15-0400 SaO2% (BldA) [Mass fraction] 99 % Isabelle Martin MA [facility]; [facility] Work Phone: Comment on above: Room air 06-19-2022 08:15-0400 Systolic blood pressure 118 mm[Hg] Isabelle Martin MA [facility]; [facility] Work Phone: Comment on above: Patient Position: Sitting; Cuff Location : Left Arm; Cuff Size: Standard 12-31-2021 14:22-0500 Body height 160.02 cm Cha Fulton LPN [facility]; [facility] Work Phone: 12-31-2021 14:22-0500 Body mass index (BMI) [Ratio] 25.55 kg/m2 Cha Slarb CUPROUS CHLORIDE HELPER [facility] Work Phone: 12-31-2021 14:22-0500 Body surface area Derived from formula 1.68 m2 Cha Slarb CUPROUS CHLORIDE HELPER [facility]; [facility] Work Phone: 12-31-2021 14:22-050 Body temperature 97.4 [degF] Cha Slarb CUPROUS CHLORIDE HELPER [facility]; [facility] Work Phone: 12-31-2021 14:-050 Body weight 65.43 kg Cha Slarb CUPROUS CHLORIDE HELPER [facility]; [facility] Work Phone: 12-31-2021 14:22-0500 Diastolic blood pressure 80 mm[Hg] Cha Slarb CUPROUS CHLORIDE HELPER [facility]; [facility] Work Phone: Comment on above: Patient Position: Sitting; Cuff Location : Left Arm; Cuff Size: Standard 12-31-2021 14:22-0500 Heart rate 78 /min Cha Michaelrb CUPROUS CHLORIDE HELPER [facility]; [facility] Work Phone: Comment on above: Pattern: Regular 12-31-2021 14:22-0500 Respiratory rate 17 /min Cha Slarb CUPROUS CHLORIDE HELPER [facility]; [facility] Work Phone: Comment on above: Pattern: Unlabored 12-31-2021 14:22-0500 SaO2% (BldA) [Mass fraction] 99 % Cha Slarb CUPROUS CHLORIDE HELPER [facility]; [facility] Work Phone: Comment on above: Room air 12-31-2021 14:22-0500 Systolic blood pressure 130 mm[Hg] Cha Slarb CUPROUS CHLORIDE HELPER [facility]; [facility] Work Phone: Comment on above: Patient Position: Sitting; Cuff Location : Left Arm; Cuff Size: Standard 09-10-2021 13:03-0400 Body height 160 cm Ganesh Adhikari MD Work Phone: [facility] 09-10-2021 13:03-0400 Body temperature 97.11 [degF] Ganesh Adhikari MD Work Phone: [facility] 09-10-2021 13:03-0400 Body weight 68.49 kg Ganesh Adhikari MD Work Phone: [facility] 09-10-2021 13:03-0400 Diastolic blood pressure 62 mm[Hg] Ganesh Adhikari MD Work Phone: [facility] 09-10-2021 13:03-0400 Heart rate 74 /min Ganesh Adhikari MD Work Phone: [facility] 09-10-2021 13:03-0400 Respiratory rate 14 /min Ganesh Adhikari MD Work Phone: [facility] 09-10-2021 13:03-0400 SaO2% (BldA) [Mass fraction] 98 % Ganesh Adhikari MD Work Phone: [facility] 09-10-2021 13:03-0400 Systolic blood pressure 120 mm[Hg] Ganesh Adhikari MD Work Phone: [facility] 03-07-2021 12:57-0500 Body temperature 97.59 [degF] Ganesh Adhikari MD Work Phone: [facility] 03-07-2021 12:57-0500 Body weight 68.95 kg Ganesh Adhikari MD Work Phone: [facility] 03-07-2021 12:57-0500 Diastolic blood pressure 78 mm[Hg] Ganesh Adhikari MD Work Phone: [facility] 03-07-2021 12:57-0500 Heart rate 75 /min Ganesh Adhikari MD Work Phone: [facility] 03-07-2021 12:57-0500 Respiratory rate 14 /min Ganesh Adhikari MD Work Phone: [facility] 03-07-2021 12:57-0500 SaO2% (BldA) [Mass fraction] 97 % Ganesh Adhikari MD Work Phone: [facility] 03-07-2021 12:57-0500 Systolic blood pressure 125 mm[Hg] Ganesh Adhikari MD Work Phone: [facility] 10-31-2016 13:25-0400 BMI (Body Mass Index) 30.64 kg/m2 Velma Benoit LPN [facility] Work Phone: 10-31-2016 13:25-0400 Body Temperature 97.9 [degF] Velma Benoit CUPROUS CHLORIDE HELPER [facility] Work Phone: 10-31-2016 13:25-0400 BP Diastolic 82 mm[Hg] Velma Benoit CUPROUS CHLORIDE HELPER [facility] Work Phone: 10-31-2016 13:25-0400 BP Systolic 126 mm[Hg] Velma Benoit CUPROUS CHLORIDE HELPER [facility] Work Phone: 10-31-2016 13:25-0400 Height 160.02 cm Velma Benoit CUPROUS CHLORIDE HELPER [facility] Work Phone: 10-31-2016 13:25-0400 Pulse (Heart Rate) 80 /min Velma Benoit LPN [facility] Work Phone: 10-31-2016 13:25-0400 Respiratory Rate 14 /min Velma Benoit LPN [facility] Work Phone: 10-31-2016 13:25-0400 Weight 78.47 kg Velma Benoit CUPROUS CHLORIDE HELPER [facility] Work Phone: 07-16-2016 11:02-0400 BMI (Body Mass Index) 30.5 kg/m2 Sharmin Blissdidier DAMIAN [facility] Work Phone: 07-16-2016 11:02-0400 Body Temperature 98.4 [degF] Sharmin Blissdidier SKELTONN [facility] Work Phone: 07-16-2016 11:02-0400 Body weight 78.11 kg Sharmin Blissdidier DAMIAN [facility] Work Phone: 07-16-2016 11:02-0400 BP Diastolic 82 mm[Hg] Sharmin Blissdidier DAMIAN [facility] Work Phone: 07-16-2016 11:02-0400 BP Systolic 130 mm[Hg] Sharmin Espino LPN [facility] Work Phone: 07-16-2016 11:02-0400 Height 160.02 cm Sharmin Espino LPN [facility] Work Phone: 07-16-2016 11:02-0400 Pulse (Heart Rate) 89 /min Sharmin Espino LPN [facility] Work Phone: 07-16-2016 11:02-0400 Pulse Oximetry 98 % Sharmin Espino LPN [facility] Work Phone: 07-16-2016 11:02-0400 Respiratory Rate 16 /min Sharmin Espino LPN [facility] Work Phone: 07-16-2016 11:02-0400 Weight 78.11 kg Sharmin Espino LPN [facility] Work Phone: Encounters Encounter Date Encounter Type Care Provider Facility Start: 07-13-2024 End: 07-13-2024 ambulatory Francheska Mcdowell INDUSTRIAL MACHINE ASSEMBLER-C Work Phone: [facility] Work Phone: Start: 07-13-2024 End: 07-13-2024 Patient encounter procedure Francheska Mcdowell INDUSTRIAL MACHINE ASSEMBLER-C -Outpatient Bone Densitometry Work Phone: Start: 07-13-2024 End: 07-13-2024 ambulatory Francheska Mcdowell Facility:[facility] Start: 07-08-2024 End: 07-08-2024 Patient encounter procedure Williams Nieto PA [facility] Work Phone: Start: 07-08-2024 End: 07-08-2024 ambulatory Francheska Mcdowell INDUSTRIAL MACHINE ASSEMBLER-C Work Phone: [facility] Work Phone: Start: 06-28-2024 End: 06-28-2024 ambulatory Francheska Mcdowell INDUSTRIAL MACHINE ASSEMBLER-C Work Phone: [facility] Work Phone: Start: 06-28-2024 End: 06-28-2024 Patient encounter procedure Francheska Jeremias INDUSTRIAL MACHINE ASSEMBLER-C [facility] Work Phone: Start: 06-28-2024 End: 06-28-2024 ambulatory Francheska Jeremias Facility:[facility] Start: 11-10-2023 End: 11-10-2023 ambulatory Francheska Jeremias Facility:[facility] Start: 06-26-2023 End: 06-26-2023 ambulatory INDUSTRIAL MACHINE ASSEMBLER-C Francheska Mcdowell Work Phone: [facility] Work Phone: Start: 06-26-2023 End: 06-26-2023 Patient encounter procedure INDUSTRIAL MACHINE ASSEMBLER-C Francheska Mcdowell Work Phone: [facility] Work Phone: Start: 06-25-2023 End: 06-25-2023 Patient encounter procedure INDUSTRIAL MACHINE ASSEMBLER-C Francheska Mcdowell Work Phone: [facility] [facility] Start: 05-20-2023 End: 05-20-2023 ambulatory INDUSTRIAL MACHINE ASSEMBLER-C Francheska Mcdowell Work Phone: [facility] Work Phone: Start: 05-20-2023 End: 05-20-2023 Discharged Recurring INDUSTRIAL MACHINE ASSEMBLER-C Francheskahimanshu Mcdowell Work Phone: [facility]-Physical Therapy Work Phone: Start: 05-08-2023 Registered Recurring INDUSTRIAL MACHINE ASSEMBLER-C Queenie Mcdowell Work Phone: [facility] Work Phone: Start: 05-07-2023 Non-patient / Non-visit INDUSTRIAL MACHINE ASSEMBLER-C Shahid Mcdowell Work Phone: [facility] Start: 05-07-2023 End: 05-07-2023 ambulatory INDUSTRIAL MACHINE ASSEMBLER-C Francheska Jeremias Work Phone: [facility] Work Phone: Start: 05-07-2023 End: 05-07-2023 Patient encounter procedure INDUSTRIAL MACHINE ASSEMBLER-C [facility] Start: 04-25-2023 End: 04-25-2023 Patient encounter procedure INDUSTRIAL MACHINE ASSEMBLER-C Francheska Jeremias Work Phone: [facility] Work Phone: Start: 03-24-2023 End: 03-24-2023 ambulatory [facility] Work Phone: Start: 03-24-2023 End: 03-24-2023 Patient encounter procedure [facility] Work Phone: Start: 12-27-2022 End: 12-27-2022 ambulatory [facility] Work Phone: Start: 12-27-2022 End: 12-27-2022 Patient encounter procedure [facility] Work Phone: Start: 12-24-2022 End: 12-27-2022 Office outpatient visit 25 minutes Francheska Mcdowell CNP Work Phone: [facility] Start: 12-18-2022 End: 12-18-2022 ambulatory [facility] Work Phone: Start: 12-18-2022 End: 12-18-2022 Patient encounter procedure [facility] Work Phone: Start: 12-09-2022 End: 12-09-2022 Annotation/Addendum Francheska Mcdowell CNP Work Phone: [facility] Start: 10-16-2022 End: 10-16-2022 Annotation/Addendum Francheska Mcdowell CNP Work Phone: [facility] Start: 08-06-2022 End: 08-06-2022 Annotation/Addendum Francheska Mcdowell CNP Work Phone: [facility] Start: 07-31-2022 End: 07-31-2022 ambulatory [facility] Work Phone: Start: 07-31-2022 End: 07-31-2022 Patient encounter procedure [facility] Start: 07-29-2022 End: 07-29-2022 Annotation/Addendum Francheska Mcdowell CNP Work Phone: [facility] Start: 07-09-2022 End: 07-09-2022 Patient encounter procedure [facility]-Outpatient Bone Densitometry Start: 07-05-2022 End: 07-05-2022 Patient encounter procedure Francheska Mcdowell CNP Work Phone: [facility] Start: 06-21-2022 End: 06-21-2022 Patient encounter procedure [facility] Start: 06-19-2022 ambulatory Francheska Mcdowell CNP [facility] Start: 06-19-2022 End: 07-07-2022 Office outpatient visit 25 minutes Francheska Mcdowell CNP Work Phone: [facility] Start: 06-19-2022 Review Francheska Mcdowell CNP Work Phone: [facility] Start: 04-19-2022 End: 04-19-2022 Annotation/Addendum Francheska Mcdowell CNP Work Phone: [facility] Start: 01-04-2022 End: 01-04-2022 ambulatory [facility] Work Phone: Start: 01-04-2022 End: 01-04-2022 Patient encounter procedure [facility] Start: 12-31-2021 End: 01-06-2022 Office consultation new/estab patient 40 min Francheska Mcdowell CNP Work Phone: [facility] Start: 09-10-2021 End: 09-10-2021 Office outpatient visit 15 minutes Ganesh Adhikari MD Work Phone: [facility] [place] Comment on above: Mixed hyperlipidemia (Primary Dx); Hypertension, benign; Encounter for medication monitoring; Prediabetes Start: 07-13-2021 Chart abstracting Ganesh Adhikari MD Work Phone: [facility] [place] Start: 05-07-2021 End: 05-07-2021 Patient encounter procedure [facility]-Outpatient Breast Imaging Start: 03-09-2021 End: 03-09-2021 Patient encounter procedure [facility]-Laboratory, [place] Procedures Date Procedure Procedure Detail Performing Clinician Start: 07-13-2024 Dual energy X-ray absorptiometry Francheska Mcdowell NP-C Work Phone: Start: 07-13-2024 Screening mammography C mamadou Mcdowell NP-C Work Phone: Start: 06-28-2024 Vitamin D, 25-hydrox y measurement Francheska Mcdowell NP-C Work Phone: Comment on above: Vitamin D StatusDefi ciency: <20 ng/mL (50nmol/L)Insufficiency: 20-30 ng/mL (50-75 nmol/L)Sufficiency: 30-100 ng/mL (75-250 nmol/L)Toxicity: >100 ng/mL (>250 nmol/L) Start: 06-25-2023 Plain X-ray of hip INDUSTRIAL MACHINE ASSEMBLER-Shahid Mcdowell Work Phone: Start: 06-25-2023 X-ray of lumbar spin e, two or three views INDUSTRIAL MACHINE ASSEMBLER-Shahid Mcdowell Work Phone: Start: 07-09-2022 End: 07-10-2022 Dexa Bone Density Study Procedure Note: See Note; NOTES: [facility] Imaging Services [address] [place] [address] Dexa Bone Density Study MR#: [id number] Acct: [id number] Name: MARGARET BRASWELL Rep #: [id number] : 1950 F [id number] From: Tripp guillen MD PCP: GOYO Cuello Status: REG CLI Study: Dexa Bone Density Study Date of Exam: 07/09/22 Exam# [id number] Ordering Dr: Francheska Mcdowell STUDY: DUAL ENERGY [...] Signed: Tripp Turpin MD at 14:44 EDT Reading Location ID and State: [facility] / [place] , Service support , CC: Francheska Mcdowell INDUSTRIAL MACHINE ASSEMBLER; INDUSTRIAL MACHINE ASSEMBLER-C Francheska Mcdowell Matrix Worker: Signed Francheska Mcdowell CNP Work Phone: Start: 07-09-2022 Dual energy X-ray absorptiometry Start: 07-09-2022 Screening mammography Start: 07-09-2022 End: 07-10-2022 SCRN MAMM (CAD)W/DEMARIO BILAT Procedure Note: See Note; NOTES: [facility] Imaging Services [address] [place] [id number] SCRN MAMM (CAD)W/DEMARIO BILAT MR#: [id number] Acct: [id number] Name: MARGARET BRASWELL Rep #: [id number] : 1950 F 72 From: Tripp guillen MD PCP: GOYO Cuello Status: [facility] Study: SCRN MAMM (CAD)W/DEMARIO BILAT Date of Exam: 06/24 08/16 Exam# [id number] Ordering Dr: Francheska Mcdowell MAMMOGRAPHY - BILATERAL [...] delay biopsy of a clinically suspicious abnormality. [id number] Electronically Signed: Tripp Turpin MD at 8:02 EDT Reading Location ID and State: [facility] / [place] , Service support , CC: Francheska Mcdowell INDUSTRIAL MACHINE ASSEMBLER; INDUSTRIAL MACHINE ASSEMBLER-C Francheska Mcdowell Matrix Worker: Signed Francheska Mcdowell CNP Work Phone: Start: 09-10-2021 Adult depression screening assessment Ganesh Adhikari MD Work Phone: Start: 05-07-2021 Screening mammography Start: 07-16-2016 End: 07-16-2016 Documentation of current medications Sharmin Espino LPN Start: 10-27-2013 Colonoscopy Ganesh florentino MD Work Phone: Screening colonoscopy Cha Fulton LPN Comment on above: 2009 Screening colonoscopy Isabelle Martin MA Comment on above: 2009 Screening colonoscopy Isabelle Martin MA Comment on above: 2009 Screening mammography Cha Slarb CUPROUS CHLORIDE HELPER Comment on above: 03/2019 Screening mammography Isabelle Martin MA Comment on above: 03/2019 Screening mammography Isabelle Martin MA Comment on above: 03/2019 Spinal arthrodesis Cha Sl arb CUPROUS CHLORIDE HELPER Comment on above: x 2 lumbar and thora cic Spinal arthrodesis Isabelle dejesus MA Comment on above: x 2 lumbar and thora cic Spinal arthrodesis Isabelle dejesus MA Comment on above: x 2 lumbar and thora cic Varicose vein ligati on and stripping Cha Slarb CUPROUS CHLORIDE HELPER Varicose vein ligati on and stripping Isabelle Martin MA Varicose vein ligati on and stripping Isabelle Martin MA Plan of Treatment Date Care Activity Detail Author Start: 10-28-2023 Colonoscopy COLONOSCOPY [facility] Start: 10-28-2023 COLORECTAL CANCER SCREENING COLORECTAL CANCER SCREENING [facility] Start: 04-25-2023 Patient referral [facility] Work Phone: Start: 12-24-2022 25 hydroxy includes fractions if performed CALCIFEDIOL (07175) [facility] Work Phone: Start: 12-24-2022 Assay of thyroid stimulating hormone tsh TSH (THYROID STIMULATING HORMONE) (37949) : in 3 mo [facility] Work Phone: Start: 12-24-2022 Blood count complete auto&auto difrntl wbc CBC, PLATELETS & AUT DIFF (07857) : in 3 mo [facility] Work Phone: Start: 12-24-2022 Comprehensive metabo lic panel METABOLIC PANEL, COMPREHENSIVE (71491) : in 3 mo [facility] Work Phone: Start: 12-24-2022 Lipid panel LIPID PANEL (8 0061) : in 3 months [facility] Work Phone: Start: 12-24-2022 Procedure Education Eprescribe d prescriptions (G8553) [facility] Work Phone: Start: 12-24-2022 Provider Instruction s for Treatment Follow up in 6 months [facility] Work Phone: Start: 12-09-2022 Assay of testosteron e free TESTOSTERONE ,TOT/FREE 07085 (96646) [facility] Work Phone: Start: 12-09-2022 Hemoglobin glycosyla aretha a1c HGB A1C (78459) [facility] Work Phone: Start: 12-09-2022 Lipid panel LIPID PANEL (70559) [facility]; [facility] Work Phone: Start: 09-10-2022 Adult depression screening assessment DEPRESSION SCREENING [facility] Start: 09-10-2022 ANNUAL PCP TEAM PAPERHANGER SUPERVISOR TRAVIS DISEASE VISIT ANNUAL PCP TEAM CHRONIC DISEASE VISIT [facility] Start: 09-10-2022 BP CONTROLLED (<130/80) BP CONTROLLE D (<130/80) [facility] Start: 08-06-2022 Blood count leukocyt e wbc automated EOSINOPHIL COUNT 5298 (15832) : Absolute-Do in Nov [facility]; [facility] Work Phone: Start: 08-06-2022 CBC, PLATELETS & MAN UAL DIFF (23247) : Nov CBC, PLATELETS & MANUAL DIFF (60355) : Oct [facility] Work Phone: Start: 08-06-2022 Comprehensive metabo lic panel METABOLIC PANEL, COMPREHENSIVE (05048) : Do in Nov [facility]; [facility] Work Phone: Start: 07-05-2022 Blood count complete auto&auto difrntl wbc CBC, PLATELETS & AUT DIFF (54550) : PLEASE DO PERIPHERAL SMEAR IF INDICATED [facility]; [facility] Work Phone: Start: 07-05-2022 Blood count reticulocyte automated RETICULOCYTE COUNT MANUL (75700) : absolute count [facility]; [facility] Work Phone: Start: 07-05-2022 Blood smear peripher al interp phys w/writ report BLOOD SMEAR INTERPRETATION (14946) [facility] Work Phone: Start: 06-19-2022 25 hydroxy includes fractions if performed CALCIFEDIOL (54688) [facility] Work Phone: Start: 06-19-2022 Blood count complete auto&auto difrntl wbc CBC, PLATELETS & AUT DIFF (98402) [facility] Work Phone: Start: 06-19-2022 Comprehensive metabo lic panel METABOLIC PANEL, COMPREHENSIVE (68703) [facility] Work Phone: Start: 06-19-2022 Lipid panel LIPID PANEL (69032) [facility]; [facility] Work Phone: Start: 06-19-2022 Procedure Education Eprescribe d prescriptions (G8553) [facility] Work Phone: Start: 06-19-2022 Provider Instruction s for Treatment Follow up in 6 months for A1c, cholesterol [facility]; [facility] Work Phone: Start: 06-19-2022 Hemoglobin glycosyla aretha a1c HgA1C , Office (01484) [facility]; [facility] Work Phone: Start: 12-31-2021 Lipid panel LIPID PANEL (62352) [facility]; [facility] Work Phone: Start: 12-31-2021 Assay of thyroid stimulating hormone tsh TSH (THYROID STIMULATING HORMONE) (19484) [facility]; [facility] Work Phone: Start: 12-31-2021 Procedure Education Eprescribe d prescriptions (G8553) [facility]; [facility] Work Phone: Start: 12-31-2021 Provider Instruction s for Treatment Follow up in 6 months [facility]; [facility] Work Phone: Start: 10-25-2021 Influenza vaccination [facility] Start: 09-10-2021 End: 11-10-2021 CBC W Auto Differential panel - Blood CBC + DIFF Lab Routine Encounter for medication monitoring Expected: 09/10/2021, Expires: 11/10/2021 [facility] Work Phone: Comment on above: Expected: 09/10/2021 , Expires: 11/10/2021 Start: 09-10-2021 End: 11-10-2021 Comprehensive metabolic 2000 panel - Serum or Plasma COMP METABOLIC PANEL Lab Routine Mixed hyperlipidemia Hypertension, benign Encounter for medication monitoring Expected: 09/10/2021, Expires: 11/10/2021 [facility] Work Phone: Comment on above: Expected: 09/10/2021 , Expires: 11/10/2021 Start: 09-10-2021 End: 11-10-2021 Hemoglobin A1c in Blood HGB A1C Lab Routine Prediabetes Expected: 09/10/2021, Expires: 11/10/2021 [facility] Work Phone: Comment on above: Expected: 09/10/2021 , Expires: 11/10/2021 Start: 09-10-2021 End: 11-10-2021 Lipid 1996 panel - Serum or Plasma LIPID PANEL BASIC Lab Routine Mixed hyperlipidemia Expected: 09/10/2021, Expires: 11/10/2021 [facility] Work Phone: Comment on above: Expected: 09/10/2021 , Expires: 11/10/2021 Start: 02-24-2021 ADVANCE DIRECTIVE DISCUSSION ADVANCE DIRECTIVE DISCUSSION [facility] Start: 10-31-2016 End: 10-31-2016 Appointment Appointment [facility] Work Phone: Start: 10-31-2016 End: 10-31-2016 BUN (urea nitrogen) X-Ray, Rib, Unilateral [facility] Work Phone: Start: 10-31-2016 End: 10-31-2016 Chest x-ray X-Ray, Chest, PA & Lateral [facility] Work Phone: Start: 07-16-2016 End: 07-16-2016 Appointment Appointment [facility] Work Phone: Start: 2014 BONE DENSITY BONE DENSITY [facility] Start: 2014 PNEUMOVAX AGE 65 AND OVER WITH 5YR LOOKBACK (#1) PNEUMOVAX AGE 65 AND OVER WITH 5YR LOOKBACK (#1) [facility] Start: 1999 SHINGRIX VACCINE (1 of 2) SHINGRIX VACCINE (1 of 2) [facility] Start: 1994 COLOGUARD (FIT-DNA) COLOGUARD (FIT-D NA) [facility] Start: [address] COLONOGRAPHY [facility] Start: 1994 DIABETES SCREEN DIABETES SCREEN [facility] Start: 1994 FECAL OCCULT BLOOD FECAL OCCULT BLOO D [facility] Start: 1994 LIPID SCREEN LIPID SCREEN [facility] Start: 1994 SIGMOIDOSCOPY SIGMOIDOSCOPY [facility] Start: 1989 Mammography MAMMOGRAM [facility] Start: 1968 SHINGRIX VACCINE (1 of 2) SHINGRIX VACCINE (1 of 2) [facility] Start: 1968 Urine microalbumin profile DTAP,TDAP,TD (1 - Tdap) [facility] Start: 1967 HEPATITIS C SCREENING HEPATITIS C SC REENING [facility] Start: 1961 Adult depression screening assessment DEPRESSION SCREENING [facility] Start: 1955 PNEUMOCOCCAL: 65+ (1 - PCV) PNEUMOCOCCAL: 65+ (1 - PCV) [facility] Start: 1954 COVID-19 VACCINE (#1) COVID-19 VACCI NE (#1) [facility] Patient Education [facility] Work Phone: Patient referral [facility] Work Phone: [facility] Work Phone: Payers Date Payer Category Payer Self-pay [id number] 2021 Unknown [id number] 2014 Medicare [id number] 2013 Medicaid [employer] [id number] 2013-Present [phone] [address] [place] [address] Medicaid [id number] 2013 Unknown [employer] [id number] 1950 Unknown [id number] Unknown Unknown [facility] [id number] Unknown [id number] Unknown [id number] Unknown [id number] Unknown [id number] Social History Date Type Detail Facility Start: 02-17-2019 End: 04-25-2023 Tobacco smoking status SDIS Unknown if ever smoked [facility] Start: 02-17-2019 Non-smoker [facility] Start: 1950 Sex Assigned At Female W [facility] Start: 10-15-2013 End: 04-25-2023 Tobacco smoking status NHIS Never smoked tobacco [facility] Work Phone: Start: 07-13-2021 End: 09-10-2021 Alcohol intake Current drinker of alcohol (finding) [facility] Start: 10-15-2013 History SDOH Alcohol Comment occasional wine- 6-7 glasses per month [facility] Start: 1950 Sex Assigned At Not on file [facility] Start: 10-15-2013 Tobacco use and exposure Smokeless tobacco non-user [facility] Work Phone: Start: 08-31-2021 End: 09-10-2021 Exposure to SARS-CoV-2 (event) Not sure [facility] Alcohol Use: Alcohol Use: [facility] Work Phone: Tobacco Use: Tobacco Use: [facility] Work Phone: Clinical Notes 09-10-2021 to 07-08-2024 Note Date & Type Note Facility 07-08-2024 Evaluation note Diagnosis Onset Date Resolution Mucous membrane inflammation acute July 08, 2024 2 :02pm [facility] Work Phone: 1(475) 617-685704-24-2024 Discharge summary Author Dennis Carter [facility] June 18, 2023 10:49am Note Date/Time June 18, 2023 10: 49am [facility] Physical Therapy [facility] [address] [place] [address] [address] [place] [address] / REHABILITATION SERVICES DISCHARGE SUMMARY MR#: [id number] Acct: [id number] Name: MARGARET BRASWELL Rep #: [id number] 14 : 1950 73 From: Cert. ALANNA ArciniegaT, [facility] Referring Dr.: ANNETTE Rodríguez Status: REG R Insurance: MEDICARE PART A B [facility] Patient Information Patient Information: MARGARET BRASWELL was seen in my office for initial evaluation on 05/05/23. The following Plan of Care was established for this patient: POC Established Initial Frequency: 2x /Week Initial Duration: 4 Weeks Anticipated Interventions Patient/Client Instruction: Educate patient on: Condition and Plan of Care For the Purpose of:: To decrease pain, To increase ROM, To improve muscle performance and motor function, To improve ability to perform ADL's, To increasetolerance to activity/condition/position, To improve ability of physical actionsfor home/community/work/leisure, To improve health of tissue, To decrease soft tissue restriction, To increase flexibility/ROM, To improve endurance and To reduce risk of recurrence Therapeutic Exercise to Include: Strength training, Balance training and DynamicLumbar Stabilization For the Purpose of:: To improve muscle performance and motor function, To improve ability to perform ADL's, To increase tolerance to activity/condition/position, To improve ability of physical actions for home/community/work/leisure, To improve health of tissue, To decrease soft tissue restriction, To increase flexibility/ROM, To improve endurance and To improve balance Manual Therapy Techniques to Include: Functional dry needling Comment: STTICK For the Purpose of:: To decrease pain, To increase ROM, To improve health of tissue and To decrease soft tissue restriction TENS: Yes IF ES: Yes Cryotherapy (ice pack, ice massage): Yes Thermo therapy (hot pack): Yes Ultrasound (thermal/non thermal): Yes For the Purpose of:: To decrease pain, To improve nutrient delivery to tissue, To increase oxygenation perfusion, To improve health of tissue and To decrease soft tissue restriction Last Seen Last Seen: This patient was last seen in our office . Pertinent comments regarding their Physical therapy will appear below: Patient was seen for PT for bursitis of hip for modalities ,stretching /manual tech and strengthening deborah is d/c At this point I will be discontinuing this patient from physical therapy. I would be happy to see this patient again in the future if found appropriate by the physician. Thank you! Dennis Carter PT, Cert MDT, OCS Balance/Gait/Functional tests Balance/Special Test Scores Lower Extremity Functional Score: 35 <Electronically signed by Nicolle Olivares PT. T, ALLEN> 06/18/23 1049 CC: GOYO Mcdowell; ANNETTE Rodríguez ~ CAROL Signed [facility] Work Phone: 1(843) 570-907407-18-2022 NoteHNO ID: [id number] Author: Ganesh Adhikari MD Service: ? Author Type: Physician Type: Progress Notes Filed: 09/10/2021 1:35 PM Note Text: This note was created using Spotjournalriter. Subjective Margaret Braswell is a 71 year [...] (Temporal) Resp 14 Ht 160 cm (5' 3) Wt 68.5 kg (151 lb) SpO2 98% [...] METABOLIC PANEL; Future Prediabetes - HGB A1C; [facility]07-18-2022 NoteHNO ID: [id number] Author: Ganesh Adhikari MD Service: ? Author Type: Physician Type: Progress Notes Filed: 09/10/2021 1:35 PM Note Text: This note was created using Spotjournalriter. Subjective Margaret Braswell is a 71 year old female. HPI Review of Systems Objective BP 120/62 Pulse 74 Temp 36.2 ?C (97.1 ?F) (Temporal) Resp 14 Ht 160 cm (5' 3) Wt 68.5 kg (151 lb) SpO2 98% BMI 26.75 kg/m? Physical Exam Assessment and [facility]07-18-2022 History of Present illness Narrative* Ganesh Adhikari MD - 09/10/2021 1:33 PM EDT This note was created using Spotjournalriter. Subjective Margaret Braswell is a 71 year [...] (Temporal) Resp 14 Ht 160 cm (5' 3) Wt 68.5 kg (151 lb) SpO2 98% [...] PANEL; Future Prediabetes - HGB A1C; Future * Ganesh Adhikari MD - 09/10/2021 1:20 PM EDT This note was created using Alkermes. Subjective Margaret Braswell is a 71 year old female. HPI Review of Systems Objective BP 120/62 Pulse 74 Temp 36.2 C (97.1 F) (Temporal) Resp 14 Ht 160 cm (5' 3) Wt 68.5 kg (151 lb) SpO2 98% BMI 26.75 kg/m Physical Exam Assessment and Plan [facility] noteNo assessment information [facility] Work Phone: Evaluation note* Diagnosis Mixed hyperlipidemia- Primary Hypertension, benign Essential hypertension, benign Encounter for medication monitoring Encounter for therapeutic drug monitoring Prediabetes Other abnormal glucose documented in this encounter [facility]* Diagnosis Onset Date Resolution Status Greater trochanteric bursitis of left hip acute Thrombophlebitis of left lower extremity acute [facility] Work Phone: Instructions* Name Dates Details Patient Instructions Indication:BMI 25.0-25.9,adult Start:31-Dec-2021 Instruction Type:Provider Instructions for Treatment How to Access Health Informa tion Online using Patient Portal and 3rd Libertarian Apps Indication:BMI 25.0-25.9,adult Start:31-Dec-2021 Instruction Type:Patient Edu cation Patient Instructions Indication:Impaired fasting glucose Start:31-Dec-2021 Instruction Type:Provider Instructions for Treatment How to Access Health Informa tion Online using Patient Portal and 3rd Libertarian Apps Indication:Impaired fasting glucose Start:31-Dec-2021 Instruction Type:Patient Edu cation [facility] Work Phone: Instructions* Name Dates Details Patient Instructions Indication:BMI 25.0-25.9,adult Start:31-Dec-2021 Instruction Type:Provider Instructions for Treatment How to Access Health Informa tion Online using Patient Portal and 3rd Libertarian Apps Indication:BMI 25.0-25.9,adult Start:31-Dec-2021 Instruction Type:Patient Edu cation Patient Instructions Indication:Impaired fasting glucose Start:31-Dec-2021 Instruction Type:Provider Instructions for Treatment How to Access Health Informa tion Online using Patient Portal and 3rd Libertarian Apps Indication:Impaired fasting glucose Start:31-Dec-2021 Instruction Type:Patient Edu cation [facility]; [facility] Work Phone: instructions* Name Dates Details Patient Instructions Indication:BMI 25.0-25.9,adult Start:31-Dec-2021 Instruction Type:Provider Instructions for Treatment How to Access Health Informa tion Online using Patient Portal and 3rd Libertarian Apps Indication:BMI 25.0-25.9,adult Start:31-Dec-2021 Instruction Type:Patient Edu cation Patient Instructions Indication:Impaired fasting glucose Start:31-Dec-2021 Instruction Type:Provider Instructions for Treatment How to Access Health Informa tion Online using Patient Portal and 3rd Libertarian Apps Indication:Impaired fasting glucose Start:31-Dec-2021 Instruction Type:Patient Edu cation [facility]; [facility] Work Phone: instructions* Name Dates Details Patient Instructions Indication:BMI 25.0-25.9,adult Start:31-Dec-2021 Instruction Type:Provider Instructions for Treatment How to Access Health Informa tion Online using Patient Portal and 3rd Libertarian Apps Indication:BMI 25.0-25.9,adult Start:31-Dec-2021 Instruction Type:Patient Edu cation Patient Instructions Indication:Impaired fasting glucose Start:31-Dec-2021 Instruction Type:Provider Instructions for Treatment How to Access Health Informa tion Online using Patient Portal and 3rd Libertarian Apps Indication:Impaired fasting glucose Start:31-Dec-2021 Instruction Type:Patient Edu cation [facility]; [facility] Work Phone: instructions* Name Dates Details Patient Instructions Indication:BMI 25.0-25.9,adult Start:31-Dec-2021 Instruction Type:Provider Instructions for Treatment How to Access Health Informa tion Online using Patient Portal and 3rd Libertarian Apps Indication:BMI 25.0-25.9,adult Start:31-Dec-2021 Instruction Type:Patient Edu cation Patient Instructions Indication:Impaired fasting glucose Start:31-Dec-2021 Instruction Type:Provider Instructions for Treatment How to Access Health Informa tion Online using Patient Portal and 3rd Libertarian Apps Indication:Impaired fasting glucose Start:31-Dec-2021 Instruction Type:Patient Edu cation [facility] Work Phone: instructions* Name Dates Details Patient Instructions Indication:Nonsmoker Start:19-Jun-2022 Instruction Type:Provider Instructions for Treatment How to Access Health Informa tion Online using Patient Portal and 3rd Libertarian Apps Indication:Nonsmoker Start:19-Jun-2022 Instruction Type:Patient Education Patient Instructions Indication:BMI 25.0-25.9,adult Start:31-Dec-2021 Instruction Type:Provider Instructions for Treatment How to Access Health Informa tion Online using Patient Portal and 3rd Libertarian Apps Indication:BMI 25.0-25.9,adult Start:31-Dec-2021 Instruction Type:Patient Education Patient Instructions Indication:Impaired fasting glucose Start:31-Dec-2021 Instruction Type:Provider Instructions for Treatment How to Access Health Informa tion Online using Patient Portal and 3rd Libertarian Apps Indication:Impaired fasting glucose Start:31-Dec-2021 Instruction Type:Patient Education [facility] Work Phone: instructions* Name Dates Details Patient Instructions Indication:Nonsmoker Start:19-Jun-2022 Instruction Type:Provider Instructions for Treatment How to Access Health Informa tion Online using Patient Portal and 3rd Libertarian Apps Indication:Nonsmoker Start:19-Jun-2022 Instruction Type:Patient Education Patient Instructions Indication:BMI 25.0-25.9,adult Start:31-Dec-2021 Instruction Type:Provider Instructions for Treatment How to Access Health Informa tion Online using Patient Portal and 3rd Libertarian Apps Indication:BMI 25.0-25.9,adult Start:31-Dec-2021 Instruction Type:Patient Education Patient Instructions Indication:Impaired fasting glucose Start:31-Dec-2021 Instruction Type:Provider Instructions for Treatment How to Access Health Informa tion Online using Patient Portal and 3rd Libertarian Apps Indication:Impaired fasting glucose Start:31-Dec-2021 Instruction Type:Patient Education [facility] Work Phone: instructions* Name Dates Details Patient Instructions Indication:Nonsmoker Start:19-Jun-2022 Instruction Type:Provider Instructions for Treatment How to Access Health Informa tion Online using Patient Portal and 3rd Libertarian Apps Indication:Nonsmoker Start:19-Jun-2022 Instruction Type:Patient Education Patient Instructions Indication:BMI 25.0-25.9,adult Start:31-Dec-2021 Instruction Type:Provider Instructions for Treatment How to Access Health Informa tion Online using Patient Portal and 3rd Libertarian Apps Indication:BMI 25.0-25.9,adult Start:31-Dec-2021 Instruction Type:Patient Education Patient Instructions Indication:Impaired fasting glucose Start:31-Dec-2021 Instruction Type:Provider Instructions for Treatment How to Access Health Informa tion Online using Patient Portal and 3rd Libertarian Apps Indication:Impaired fasting glucose Start:31-Dec-2021 Instruction Type:Patient Education [facility] Work Phone: instructions* Name Dates Details Patient Instructions Indication:Nonsmoker Start:19-Jun-2022 Instruction Type:Provider Instructions for Treatment How to Access Health Informa tion Online using Patient Portal and 3rd Libertarian Apps Indication:Nonsmoker Start:19-Jun-2022 Instruction Type:Patient Education Patient Instructions Indication:BMI 25.0-25.9,adult Start:31-Dec-2021 Instruction Type:Provider Instructions for Treatment How to Access Health Informa tion Online using Patient Portal and 3rd [employer]arian Apps Indication:BMI 25.0-25.9,adult Start:31-Dec-2021 Instruction Type:Patient Education Patient Instructions Indication:Impaired fasting glucose Start:31-Dec-2021 Instruction Type:Provider Instructions for Treatment How to Access Health Informa tion Online using Patient Portal and 3rd [employer] Apps Indication:Impaired fasting glucose Start:31-Dec-2021 Instruction Type:Patient Education [facility] Work Phone: instructions* Name Dates Details Patient Instructions Indication:Nonsmoker Start:19-Jun-2022 Instruction Type:Provider Instructions for Treatment How to Access Health Informa tion Online using Patient Portal and 3rd [employer]arian Apps Indication:Nonsmoker Start:19-Jun-2022 Instruction Type:Patient Education Patient Instructions Indication:BMI 25.0-25.9,adult Start:31-Dec-2021 Instruction Type:Provider Instructions for Treatment How to Access Health Informa tion Online using Patient Portal and [employer]rd [employer] Apps Indication:BMI 25.0-25.9,adult Start:31-Dec-2021 Instruction Type:Patient Education Patient Instructions Indication:Impaired fasting glucose Start:31-Dec-2021 Instruction Type:Provider Instructions for Treatment How to Access Health Informa tion Online using Patient Portal and [employer]rd [employer] Apps Indication:Impaired fasting glucose Start:31-Dec-2021 Instruction Type:Patient Education [facility] Work Phone: instructions* Name Dates Details Patient Instructions Indication:Nonsmoker Start:19-Jun-2022 Instruction Type:Provider Instructions for Treatment How to Access Health Informa tion Online using Patient Portal and 3rd [employer] Apps Indication:Nonsmoker Start:19-Jun-2022 Instruction Type:Patient Education Patient Instructions Indication:BMI 25.0-25.9,adult Start:31-Dec-2021 Instruction Type:Provider Instructions for Treatment How to Access Health Informa tion Online using Patient Portal and 3rd [employer] Apps Indication:BMI 25.0-25.9,adult Start:31-Dec-2021 Instruction Type:Patient Education Patient Instructions Indication:Impaired fasting glucose Start:31-Dec-2021 Instruction Type:Provider Instructions for Treatment How to Access Health Informa tion Online using Patient Portal and 3rd [employer] Apps Indication:Impaired fasting glucose Start:31-Dec-2021 Instruction Type:Patient Education [facility]; [facility] Work Phone: instructions* Name Dates Details How to Access Health Informa tion Online using Patient Portal and 3rd [employer] Apps Indication:BMI 25.0-25.9,adult Start:24-Dec-2022 Instruction Type:Patient Education Patient Instructions Indication:BMI 25.0-25.9,adult Start:24-Dec-2022 Instruction Type:Provider Instructions for Treatment Patient Instructions Indication:Nonsmoker Start:19-Jun-2022 Instruction Type:Provider Instructions for Treatment How to Access Health Informa tion Online using Patient Portal and 3rd [employer] Apps Indication:Nonsmoker Start:19-Jun-2022 Instruction Type:Patient Education Patient Instructions Indication:BMI 25.0-25.9,adult Start:31-Dec-2021 Instruction Type:Provider Instructions for Treatment How to Access Health Informa tion Online using Patient Portal and 3rd [employer] Apps Indication:BMI 25.0-25.9,adult Start:31-Dec-2021 Instruction Type:Patient Education Patient Instructions Indication:Impaired fasting glucose Start:31-Dec-2021 Instruction Type:Provider Instructions for Treatment How to Access Health Informa tion Online using Patient Portal and 3rd [employer] Apps Indication:Impaired fasting glucose Start:31-Dec-2021 Instruction Type:Patient Education [facility] Work Phone: reason for referral (narrative)No reason for referral information [facility] Work Phone: Chief Complaint and Reason for Visit Chief Complaint SCREENING Chief Complaint POST-MENOPAUSAL, SCR EENING Chief Complaint LUMP ON LEFT LOWER L EG/ ACHY LEFT HIP Pain in left leg BURSITIS OF LEFT HIP. RX HERE Reason for Visit Greater trochanteric bursitis of left hip Thrombophlebitis of left lower extremity Chief Complaint LUMP ON LEFT LOWER L EG/ ACHY LEFT HIP Pain in left leg BURSITIS OF LEFT HIP. RX HERE XRAY Reason for Visit Greater trochanteric bursitis of left hip Thrombophlebitis of left lower extremity Chief Complaint Admit Date FASTING June 28, 2024 7:28am Chief Complaint Admit Date FASTING June 28, 2024 7:28am SKIN PEELING IN MOUTH July 08, 2024 2:0 2pm Chief Complaint Admit Date FASTING June 28, 2024 7:28am SKIN PEELING IN MOUTH July 08, 2024 2:0 2pm SCREENING July 13, 2024 1:51p m Reason for Visit Admit Date Mucous membrane inflammation July 08, 2 025 2:02pm Advance Directives No Advanced Directives Records Found Advance Directive Response Recorded Date/ Time Living Will No February 17, 2 019 4:52pm Power of Communications Engineering Technician No February 17, 2019 4:52pm Advance Directive Response Recorded Date/ Time Living Will No February 17, 2 019 3:52pm Power of Communications Engineering Technician No February 17, 2019 3:52pm Advance Directive Response Recorded Date/ Time Living Will No April 25, 2023 2:44pm Power of Communications Engineering Technician No April 24 2:44pm Summary Purpose Family History No Family History Records FoundUnknown Family Member Name Dates Details Father Comments:Prostate [...] Status:Active Mother Comments:Parkinson's, HTN, C holesterol Status:Active Relationship Condition Age at Onset Recorded Date/T rosie Not Specified Diabetes mellitus Unknown Atrial fibrillation Unknown Hyperlipidemia Unknown Hypertension Unknown Additional Source Comments Goals (unrecognized section and content) Goals may be documented in a n alternate sectionGoals may be documented in an alternate sectionGoals may be documented in an alternate sectionGoals may be documented in an alternate sectionGoals may be documented in an alternate sectionGoals may be documented in an alternate sectionGoals may be documented in an alternate sectionGoals may be documented in an alternate sectionGoals may be documented in an alternate sectionGoals may be documented in an alternate sectionGoals may be documented in an alternate sectionGoals may be documented in an alternate section Source Comments (unrecognize d section and content) In the event this informatio n is protected by the Federal Confidentiality of Alcohol and Drug Abuse Patient Records regulations: The Federal rules restrict any use of the information to criminally investigate or prosecute any alcohol or drug abuse patient.[facility] CenterIn the event this information is protected by the Federal Confidentiality of Alcohol and Drug Abuse Patient Records regulations: The Federal rules restrict any use of the information to criminally investigate or prosecute any alcohol or drug abuse patient.[facility] Care Teams (unrecognized sec tion and content) Commanding [employer] Relationship Specialty Start Date End Date Ganesh Adhikari MD PCP - General Family Practice 06/23/13 [employer] Relationship Specialty Start Date End Date Ganesh Adhikari MD PCP - General Family Practice 06/23/13 Team Status: Active Member Role Status Dates Dr. Ganesh Adhikari MD Family Provider Active Francheska Mcdowell NP-Shahid Primary Care Provider Active Team Status: Inactive Member Role Status Dates GOYO Cuello Primary Care Provi arlette, Attending Provider, Referring Provider Active Team Status: Inactive Member Role Status Dates GOYO Cuello Primary Care Provider, Referring Provider Active Williams BRYANT, PA Attending Provider Active Team Status: Active Member Role Status Dates GOYO Cuello Primary Care Provider, Referring Provider Active Dr. Rustam Thapa MD Attending Provider Active Team Status: Active Member Role Status Dates Francheska Mcdowell INDUSTRIAL MACHINE ASSEMBLER-C Primary Care Provider Active ANNETTE Doan Attending Provider, Referring Provi arlette Active Team Status: Inactive Member Role Status Dates Francheska Mcdowell INDUSTRIAL MACHINE ASSEMBLER-C Primary Care Provider Active ANNETTE Doan Attending Provider, Referring Provi arlette Active Team Status: Inactive Member Role Status Dates Francheska Mcdowell INDUSTRIAL MACHINE ASSEMBLER-C Primary Care Provider Active Dr. Selvin Riggs MD Attending Provider Active Team Status: Inactive Member Role Status Dates Francheska Mcdowell INDUSTRIAL MACHINE ASSEMBLER-C Primary Care Provider Active Start: June 28, 2024 End: June 28, 2024 Francheska Mcdowell INDUSTRIAL MACHINE ASSEMBLER-C Attending Provider Active Start: June 28, 2024 End: June 28, 2024 Francheska Mcdowell INDUSTRIAL MACHINE ASSEMBLER-C Referring Provider Active Start: June 28, 2024 End: June 28, 2024 Team Status: Active Member Role Status Dates Francheska Mcdowell INDUSTRIAL MACHINE ASSEMBLER-C Primary Care Provider Active Team Status: Inactive Member Role Status Dates Francheska Mcdowell INDUSTRIAL MACHINE ASSEMBLER-C Primary Care Provider Active Start: July 08, 2024 End: July 08, 2024 Francheska Mcdowell INDUSTRIAL MACHINE ASSEMBLER-C Referring Provider Active Start: July 08, 2024 End: July 08, 2024 ANNETTE Doan Attending Provider Active Sta rt: July 08, 2024 End: July 08, 2024 Team Status: Inactive Member Role Status Dates Francheska Mcdowell , INDUSTRIAL MACHINE ASSEMBLER-C Primary Care Provider Active Start: July 13, 2024 End: July 13, 2024 Francheska Mcdowell INDUSTRIAL MACHINE ASSEMBLER-C Attending Provider Active Start: July 13, 2024 End: July 13, 2024 Francheska Mcdowell INDUSTRIAL MACHINE ASSEMBLER-C Referring Provider Active Start: July 13, 2024 End: July 13, 2024 Reason for Visit (unrecogniz ed section and content) Reason Comments 6 Month Exam f/u for htn and othe r medical problems pt has complaints of a tickle in her throat that makes her cough for a year INFORMATION SOURCE (unrecogn ized section and content) DATE CREATED AUTHOR 09/14/2021 [facility] DATE CREATED AUTHOR AUTHOR'S ORGANIZ ATION 06/21/2022 [facility] DATE CREATED AUTHOR AUTHOR'S ORGANIZ ATION 07/23/2024 [facility] FOR RECORDS PERTAINING TO PATIENTS WHO ARE [...] BE BASED ON THE PRIMARY CLINICAL RECORDS. [facility] [employer], [facility]. provides no warranty or guarantee of the accuracy or completeness of information in this document.
[2025-01-10 10:28] LABS: Hematocrit 38.7 % (37-47); Hemoglobin 12.8 g/dL (12.0-15.0); Immature Granulocytes Count 0.010 X10^3/uL (0.0-0.0); Mean Corp Hgb Conc 33.1 g/dL (32-36); Mean Corpuscular Volume 96.5 fL (81-99); Mean Platelet Vol. 10.0 fl (6.2-12.0); NRBC Flagged by Analyzer 0 % (0-5); Platelet Count 168 K/mm3 (150-450); RBC Distribution Width CV 13.1 % (11.6-14.6); RBC Distribution Width SD 47.0 fl (35.1-43.9); Red Blood Count 4.01 M/mm3 (4.2-5.4); White Blood Count 4.9 K/mm3 (4.4-11.0)
[2025-01-10 10:32] LABS: Color, Urine Yellow (Yellow); Glucose, Dipstick Normal (Normal); Ketone-Dipstick Negative (Negative); Leukocyte Esterase-Dipstick 25 /ul (Negative); Nitrite-Dipstick Positive (Negative); Occult Blood-Urine Negative /ul (Negative); Protein-Dipstick 15 mg/dl (Negative); Specific Gravity, Urine 1.015 (1.002-1.030); Urine Bilirubin Dipstick Negative (Negative)
[2025-01-10 11:11] LABS: AST(SGOT) 19 U/L (<=31); Alanine Aminotransfer ALT/SGPT 15 U/L (<=34); Albumin, Serum 4.2 g/dL (3.4-4.8); Alkaline Phosphatase 52 U/L (35-104); Anion Gap 12 (5-15); BUN 18 mg/dL (4-19); BUN/Creat Ratio 23.4 RATIO (10-20); Calcium,Total 9.6 mg/dL (7.6-11.0); Carbon Dioxide 24.2 mmol/L (21.0-32.0); Chloride 103 mmol/L (98-108); Cholesterol 281 mg/dL (<=200); Globulin 2.7 g/dL (2.2-4.2); Glucose 122 mg/dL (70-99); Low Density Lipoprotein Calc. 171 mg/dL; Potassium 4.1 mmol/L (3.3-5.1); Triglycerides 235 mg/dL; Very Low Density Lipoprotein 47 mg/dL (5-40); cholesterol:hdl ratio screen 4.26
[2025-01-10 11:29] LABS: Creatinine, Urine (random) 102.00 mg/dL (28.00-217.00); Microalbumin,Random Urine 27.7 mg/L (<20 mg/L)
== END | disposition home or self-care (01) ==
LOC: MTLAB 07:37
PROVIDERS: PCP Nurse Practitioner Family; Referring Provider Nurse Practitioner Family; Visit Provider Nurse Practitioner Family
DX: I10 Essential (primary) hypertension (principal); D64.9 Anemia, unspecified; R73.03 Prediabetes; E78.5 Hyperlipidemia, unspecified
CPT/HCPCS: 36415; 80053; 80061; 81002; 82043; 82570; 83036; 85025

== ENCOUNTER → 2025-02-07 | Outpatient (CLI) | payer SELFPAY | END | disposition home or self-care (01) | LOC: LABSPEC 10:21 | PROVIDERS: PCP Nurse Practitioner Family; Referring Provider Nurse Practitioner Family; Visit Provider Nurse Practitioner Family | DX: I10 Essential (primary) hypertension (principal); E55.9 Vitamin D deficiency, unspecified; N30.00 Acute cystitis without hematuria | CPT/HCPCS: 87077; 87086; 87088; 87186 ==

== ENCOUNTER → 2025-02-14 | Outpatient (CLI) | payer BC, SELFPAY ==
[2025-02-14 10:26] LABS: Mucous, Urine 0 SEEN /hpf (<or=2+); Red Blood Cells-Urine 0 SEEN /hpf (0-5); Squamous Epithelial Cells - UA 0 SEEN /hpf (5-10)
[2025-02-14 12:01] LABS: Color, Urine Yellow (Yellow); Glucose, Dipstick Normal (Normal); Ketone-Dipstick Negative (Negative); Leukocyte Esterase-Dipstick 25 /ul (Negative); Nitrite-Dipstick Negative (Negative); Occult Blood-Urine Negative /ul (Negative); Protein-Dipstick Negative (Negative); Specific Gravity, Urine 1.010 (1.002-1.030); Urine Bilirubin Dipstick Negative (Negative)
== END | disposition home or self-care (01) ==
LOC: LABSPEC 10:23
PROVIDERS: PCP Nurse Practitioner Family; Referring Provider Nurse Practitioner Family; Visit Provider Nurse Practitioner Family
DX: I10 Essential (primary) hypertension (principal); N30.00 Acute cystitis without hematuria; E55.9 Vitamin D deficiency, unspecified
CPT/HCPCS: 81001; 87077; 87086; 87088; 87186